=== PATIENT | male | born 1955 | race Two or more races ===

== ENCOUNTER 2019-10-09 17:54 | Inpatient (IN) | payer MEDICAID, MEDICARE ==
[~2019-10-09] VITALS: Ht 175.3 cm; Wt 36.3 kg
--- NOTE | 2019-10-09 17:55 | NUR ---
ED Nurse Note: pt was brought in by ambulance from [facility] d/t abdominal pain & nausea started an hour ago. Denies any vomiting nor chills. Pt is AOx4, calm and cooperative. Denies any past medical hx aside from paralysis on both lower extremities; arrived with a supraprapubic catheter that was changed a month ago. Placed on bed; hooked to hospital monitor; VSS, on RA, afebrile on triage. Safety assured; will continue to monitor.
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
[2019-10-09] MEDS ORDERED: Morphine Sulfate 4mg/ml Inj (IV USE ONLY) IVP ONE (18:00)
[2019-10-09 18:10] VITALS: BP 134/77
--- NOTE | 2019-10-09 18:15 | NUR ---
ED Nurse Note: pt went on ct via [facility] accompanied by tech
--- NOTE | 2019-10-09 18:22 | NUR ---
ED Nurse Note: pt returned from ct on stable condition. Offered warm blankets as requested; will continue to monitor.
[2019-10-09] MEDS ORDERED: Morphine Sulfate 4mg/ml Inj (IV USE ONLY) ONE (18:24)
[2019-10-09 18:31] LABS: BASOPHILS % (AUTO) 0.6 % (0.0-2.0); EOSINOPHILS % (AUTO) 1.9 % (0.0-3.0); HEMATOCRIT 45.3 % (42.0-52.0); HEMOGLOBIN 14.7 G/DL (14.2-18.0); LYMPHOCYTES % (AUTO) 11.8 % (20.0-45.0); MEAN CORPUSCULAR VOLUME 88 FL (80-99); MONOCYTES % (AUTO) 5.8 % (1.0-10.0); NEUTROPHILS % (AUTO) 79.9 % (45.0-75.0); PLATELET COUNT 343 K/UL (150-450); RED BLOOD COUNT 5.17 M/UL (4.70-6.10); RED CELL DISTRIBUTION WIDTH 13.7 % (11.6-14.8); WHITE BLOOD COUNT 13.8 K/UL (4.8-10.8)
[2019-10-09 18:33] LABS: ANION GAP 10 mmol/L (5-15); BLOOD UREA NITROGEN 21 mg/dL (7-18); CALCIUM 9.6 MG/DL (8.5-10.1); CARBON DIOXIDE 27 MMOL/L (21-32); CHLORIDE 105 MMOL/L (98-107); CREATININE 0.7 MG/DL (0.55-1.30); POTASSIUM 3.6 MMOL/L (3.5-5.1); SODIUM 142 MMOL/L (136-145)
[2019-10-09 18:37] LABS: ALANINE AMINOTRANSFERASE 18 U/L (12-78); ALBUMIN 3.9 G/DL (3.4-5.0); ALBUMIN/GLOBULIN RATIO 0.9 (1.0-2.7); ALKALINE PHOSPHATASE 122 U/L (46-116); ASPARTATE AMINO TRANSFERASE 17 U/L (15-37); BILIRUBIN,TOTAL 0.5 MG/DL (0.2-1.0)
--- NOTE | 2019-10-09 18:50 | NUR ---
ED Nurse Note: urine collected; sent to labs. Pt's VSS, on RA. Denies any pain nor discomfort as of now.
[2019-10-09 19:06] LABS: APPEARANCE,URINE VERY CLOUDY; BILIRUBIN, URINE NEGATIVE (NEGATIVE); GLUCOSE, URINE (UA) NEGATIVE (NEGATIVE); KETONES,URINE 1+ (NEGATIVE); LEUKOCYTE ESTERASE ,URINE 3+ (NEGATIVE); NITRITE,URINE POSITIVE (NEGATIVE); PH,URINE 5 (4.5-8.0); PROTEIN,URINE 2+ (NEGATIVE); UROBILINOGEN,URINE 1 MG/DL (0.0-1.0)
--- NOTE | 2019-10-09 19:06 | NUR ---
ED Nurse Note: Hand-off given to ROSALBA Cobian for continuity of care.
[2019-10-09 19:26] LABS: COLOR,URINE YELLOW
[2019-10-09] MEDS ORDERED: Piperacillin/Tazobactam 3.375 GM in NS 110 ML IVPB ONE (19:45)
[2019-10-09 21:00] VITALS: BP 124/70
--- NOTE | 2019-10-09 21:00 | NUR ---
ED Nurse Note: Pt resting in bed with eyes closed,easily awakened, IV antibiotics infusing per order, awaiting bed upstairs, will continue to monitor. Pt denies pain at this time
--- NOTE | 2019-10-09 22:10 | NUR ---
TRANSFER TO FLOOR: Patient transferred to as ordered, per Dr Patino. Report given to ROSALBA Patel. Belongings and medications given to . Family and or S/O informed of transfer.
--- NOTE | 2019-10-09 22:30 | NUR ---
NURSE NOTES: Received report from ROSALBA Cobian ED. Pt arrived to the unit @ 2220. AAO x 4, on room air, paraplegia. Admitted with supra pubic cath. Pt c/o abd pain 09/10 and received morphine from ED. Admitted wound on R buttock, R foot and L great toe. Wound pic taken. IV site intact. Pt has own wheelchair. All belongings reviewed. Orientation to the unit and facility given. No home meds noted. Swabs done from ED. Bed locked, lowest position, alarm on, side rails up, call light within reach. Will continue to monitor.
--- NOTE | 2019-10-09 22:30 | NUR ---
NURSE NOTES: Received admission order from Dr. Patino. Regular diet per pt request. Order noted and carried out.
[2019-10-10] VITALS: BP 91/48
[2019-10-10] MEDS: Morphine Sulfate 2mg/ml Inj(IV/IM USE ONLY) IVP PRN (00:42)
[2019-10-10 04:00] VITALS: BP 112/52
[2019-10-10 06:22] LABS: BASOPHILS % (AUTO) 0.5 % (0.0-2.0); EOSINOPHILS % (AUTO) 2.3 % (0.0-3.0); HEMOGLOBIN 12.9 G/DL (14.2-18.0); LYMPHOCYTES % (AUTO) 12.8 % (20.0-45.0); MEAN CORPUSCULAR VOLUME 84 FL (80-99); MONOCYTES % (AUTO) 7.7 % (1.0-10.0); NEUTROPHILS % (AUTO) 76.8 % (45.0-75.0); PLATELET COUNT 265 K/UL (150-450); RED CELL DISTRIBUTION WIDTH 12.3 % (11.6-14.8)
[2019-10-10 06:42] LABS: ALANINE AMINOTRANSFERASE 14 U/L (12-78); ALBUMIN/GLOBULIN RATIO 0.9 (1.0-2.7); ALKALINE PHOSPHATASE 92 U/L (46-116); ANION GAP 9 mmol/L (5-15); ASPARTATE AMINO TRANSFERASE 13 U/L (15-37); BILIRUBIN,TOTAL 0.3 MG/DL (0.2-1.0); BLOOD UREA NITROGEN 18 mg/dL (7-18); CALCIUM 8.6 MG/DL (8.5-10.1); CARBON DIOXIDE 26 MMOL/L (21-32); CHLORIDE 109 MMOL/L (98-107); CREATININE 0.7 MG/DL (0.55-1.30); POTASSIUM 3.6 MMOL/L (3.5-5.1); SODIUM 144 MMOL/L (136-145)
--- NOTE | 2019-10-10 07:41 | NUR ---
HAND-OFF: Report given to ROSALBA Gupta.
[2019-10-10 08:00] VITALS: BP 109/57
--- NOTE | 2019-10-10 08:00 | NUR ---
NURSE NOTES: Patient alert and oriented,respirations unlabored.Patient has suprapubic catheter draining clear mo color urine.Patient ate breakfast.Call light within reach.Bed alarm is on.
--- NOTE | 2019-10-10 10:28 | Diagnostic Imaging Report ---
Indication: Abdominal pain, right-sided upper and lower quadrant, 10 out of 10 intensity, for approximately one hour Technique: Spiral acquisitions obtained through the abdomen and pelvis. No oral contrast utilized, per emergency room physician request No IV contrast utilized, per emergency room physician request.. Multiplanar reconstructions were generated. Total dose length product 337 mGycm. CTDIvol(s) 6 mGy. Dose reduction achieved using automated exposure control Comparison: None Findings: The appendix is not definitely demonstrated, but no findings to suggest acute appendicitis are evident. There is no evidence of colonic diverticulosis or diverticulitis. No small bowel distention. No free or loculated intraperitoneal gas or fluid is evident. The distal esophagus, stomach, duodenum are unremarkable. There is a equivocal wall thickening of the distal rectum. Lack of IV contrast limits assessment of the solid organs. The liver demonstrates a cyst in the dome of segment 8. It demonstrates other scattered subcentimeter low-attenuation lesions which are too small to characterize the gallbladder, bile ducts, pancreas, spleen, adrenals, kidneys are all unremarkable. No retroperitoneal or mesenteric mass or adenopathy. There are prominent iliac chain nodes, largest a left external iliac node measuring 2.4 x 1.2 cm in diameter. The bladder is empty, contains a suprapubic catheter which appears to be well positioned. There is thickening of the retrococcygeal fat and evidence of some chronic appearing destructive changes of the coccyx. No evidence of ulceration. There is infiltration of the subcutaneous fat of the bilateral buttocks. Degenerative changes of the bilateral hips are noted. Dystrophic calcifications are seen in the left hip region. There is a complex calcified density in the right upper buttock region subcutaneous fat. There is chronic appearing distortion of the sacrum and there is thoracolumbar smooth dextro scoliotic deformity, may in part be an artifact of positioning. The included lung bases demonstrate a slight degree of mosaic perfusion at the left lung base. There is some atelectasis of the inferior lingula. Impression: Equivocal wall thickening of the distal rectum, if real could indicate proctitis or less likely mass lesion. Correlate with clinical findings. Pelvic adenopathy, could be reactive or neoplastic. This finding was phoned to Dr. Bond at the time of interpretation Empty bladder with a suprapubic catheter in good position Evidence of retrococcygeal decubitus changes and chronic erosive changes of the coccyx. No evidence of ulceration Right lobe liver cyst and subcentimeter low-attenuation liver lesions which are too small to characterize, most likely benign simple cysts Complex calcified density in the right upper buttock region is probably a large injection granuloma Degenerative changes of the bilateral hips, left hip dystrophic calcifications, left basilar pulmonary atelectatic changes are also incidentally noted The CT scanner at [facility] is accredited by the [employer] and the scans are performed using protocols designed to limit radiation exposure to as low as reasonably achievable to attain images of sufficient resolution adequate for diagnostic evaluation.
--- NOTE | 2019-10-10 10:36 | NUR ---
LINUX NETWORK ADMINISTRATOR NOTE SW received a consult for homelessness. Pt presents as A&O4x. Pt is homeless, receives no income, has hx of SSI and has no emergency contact. Pt is single and has no children. Pt reports he is homeless but he has a friend who has been staying w/ him on the streets. Pt declined to provide his preferred location/whereabouts/friend's contact information. Pt uses a wheelchair. Pt reports he is independent w/ ADLs. SW provided the list of emergency shelters and community resource packet. Pt declined a placement assistance and also declined to state the specific location that he will be going upon DC. Pt stated "I know where I am going." Pt denies SI/HI/current substance abuse. Pt reports he will consider the emergency senior living option but pt wishes to go his preferred location upon DC. SW explained negative ramification of unlicensed facilities/shelters. Pt verbalized understanding. Addendum: 10/10/19 at 1104 by PINA NESBITT SW received a phone call from [place] stating that she will check on the status of the case and will give an update. Awaiting for call back. Addendum: 10/10/19 at 1105 by PINA NESBITT Please disregard the previous note ([id number])
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
[2019-10-10 12:00] VITALS: BP 129/75
--- NOTE | 2019-10-10 12:10 | Diagnostic Imaging Report ---
Indication: Leg edema and leg pain Technique: Grayscale and duplex images of the bilateral lower extremity veins Comparison: None Findings: Bilaterally, grayscale and duplex images demonstrate no evidence of intraluminal thrombus. Normal phasic Doppler waveforms, demonstrating normal augmentation response and no evidence of valvular insufficiency. Greater saphenous vein(s) and tibial veins are patent. Normal compressibility. Impression: Negative for evidence of lower extremity deep venous thrombosis bilaterally
[2019-10-10] MEDS: Docusate 100mg cap ORAL SCH ×2 (13:10→19:23)
--- NOTE | 2019-10-10 13:20 | NUR ---
CASE MANAGEMENT:REVIEW 64 YR OLD MALE [facility]IBA FROM [facility];ABDOMINAL PAIN SI;CATHETER ASSOCIATED UTI 98.4 88 22 137 97% ON RA WBC 13.8 BUN 21 ALK PHOS 122 UA+ PROTEIN, KETONES, BLOOD, UROBILI, LUEKOCYTE, RBC, WBC, AMORPHOUS SEDIMENT, BACTERIA, YEAST ABD/PELVIS CT W/O CONTRAST ~ Pelvic adenopathy, could be reactive or neoplastic. This finding was phoned to at the time of interpretation. VENOUS DUPLEX (BILAT LEG) ~ Negative for evidence of lower extremity deep venous thrombosis bilaterally. IS;ZOFRAN IV ONCE FAMOTIDINE IV ONCE MORPHINE IV ONCE ZOSYN IN ONCE ADMITTED TO MED SURG ON 10/10/19 @ 0853 AM MED SURG STATUS DCP;PATIENT IS HOMELESS
[2019-10-10] MEDS: D5NS 1,000 ML IV SCH (13:23)
[2019-10-10] MEDS: Piperacillin/Tazobactam 3.375 GM in NS 110 ML IVPB SCH ×2 (15:24→23:12)
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
[2019-10-10 16:00] VITALS: BP 116/64
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
--- NOTE | 2019-10-10 19:00 | NUR ---
NURSE NOTES: Supra pubic catheter was changed today BY DR Olsen,catheter draining clearer color yellow urine
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
--- NOTE | 2019-10-10 20:16 | NUR ---
NURSE NOTES:HAND-OFF: Report given to Tesha NAVARRETE.
--- NOTE | 2019-10-10 20:39 | NUR ---
NURSES NOTE: Met pt in bed, A/OX4, denies pain at this time. No outward s/s of distress noted. Breathing pattern is even and unlabored on RA. RAC IV intact, patent. Red catheter in place, patent, draining according to gravity. All due meds will be given. Bed at lowest level, call light within reach. Pt will continue to be monitored.
--- NOTE | 2019-10-10 22:11 | General Progress Note ---
Subjective Allergies: Coded Allergies: IODINE AND IODIDE CONTAINING PRODUC (Unverified Allergy, Unknown, 10/09/19) SHELLFISH DERIVED (Unverified Allergy, Unknown, 10/09/19) Objective Last 24 Hour Vital Signs Date Time Temp Pulse Resp B/P (MAP) Pulse Ox O2 Delivery O2 Flow Rate FiO2 10/10/19 16:00 98.5 71 18 116/64 (81) 95 10/10/19 12:00 129/75 (93) 10/10/19 08:00 97.7 66 18 109/57 (74) 97 10/10/19 04:00 98.3 65 20 112/52 (72) 98 10/10/19 00:00 97.4 64 20 91/48 (62) 98 10/09/19 23:57 Room Air Intake and Output 10/09/19 10/10/19 19:00 07:00 # Voids 2 Laboratory Tests 10/10/19 05:30: White Blood Count 10.0, Red Blood Count 4.40L, Hemoglobin 12.9L, Hematocrit 37.0L, Mean Corpuscular Volume 84, Mean Corpuscular Hemoglobin 29.3, Mean Corpuscular Hemoglobin Concent 34.7, Red Cell Distribution Width 12.3, Platelet Count 265, Mean Platelet Volume 6.1L, Neutrophils (%) (Auto) 76.8H, Lymphocytes (%) (Auto) 12.8L, Monocytes (%) (Auto) 7.7, Eosinophils (%) (Auto) 2.3, Basophils (%) (Auto) 0.5, Sodium Level 144, Potassium Level 3.6, Chloride Level 109H, Carbon Dioxide Level 26, Anion Gap 9, Blood Urea Nitrogen 18, Creatinine 0.7, Estimat Glomerular Filtration Rate > 60, Glucose Level 130H, Calcium Level 8.6, Total Bilirubin 0.3, Aspartate Amino Transf (AST/SGOT) 13L, Alanine Aminotransferase (ALT/SGPT) 14, Alkaline Phosphatase 92, Total Protein 6.5, Albumin 3.0L, Globulin 3.5, Albumin/Globulin Ratio 0.9L 10/10/19 16:00: Urine Opiates Screen Negative, Urine Barbiturates Screen Negative, Phencyclidine (PCP) Screen Negative, Urine Amphetamines Screen Negative, Urine Benzodiazepines Screen Negative, Urine Cocaine Screen Negative, Urine Marijuana (THC) Screen Negative Height (Feet): 5 Height (Inches): 9.00 Weight (Pounds): 80 Jarett Bond MD Oct 10, 2019 22:11
[2019-10-11] VITALS: BP 109/60
[2019-10-11] MEDS: D5NS 1,000 ML IV SCH ×2 (01:20→18:21)
[2019-10-11 04:00] VITALS: BP 131/66
[2019-10-11] MEDS: Piperacillin/Tazobactam 3.375 GM in NS 110 ML IVPB SCH ×3 (05:53→21:08)
[2019-10-11 06:55] LABS: BASOPHILS % (AUTO) 0.7 % (0.0-2.0); EOSINOPHILS % (AUTO) 3.7 % (0.0-3.0); HEMATOCRIT 38.5 % (42.0-52.0); HEMOGLOBIN 13.1 G/DL (14.2-18.0); LYMPHOCYTES % (AUTO) 20.6 % (20.0-45.0); MEAN CORPUSCULAR VOLUME 84 FL (80-99); MONOCYTES % (AUTO) 8.5 % (1.0-10.0); NEUTROPHILS % (AUTO) 66.4 % (45.0-75.0); PLATELET COUNT 260 K/UL (150-450); RED BLOOD COUNT 4.56 M/UL (4.70-6.10); RED CELL DISTRIBUTION WIDTH 12.3 % (11.6-14.8)
[2019-10-11 07:43] LABS: ALANINE AMINOTRANSFERASE 13 U/L (12-78); ALBUMIN 2.9 G/DL (3.4-5.0); ALBUMIN/GLOBULIN RATIO 0.8 (1.0-2.7); ALKALINE PHOSPHATASE 88 U/L (46-116); ANION GAP 11 mmol/L (5-15); ASPARTATE AMINO TRANSFERASE 12 U/L (15-37); BILIRUBIN,TOTAL 0.4 MG/DL (0.2-1.0); BLOOD UREA NITROGEN 16 mg/dL (7-18); CALCIUM 8.3 MG/DL (8.5-10.1); CARBON DIOXIDE 25 MMOL/L (21-32); CHLORIDE 106 MMOL/L (98-107); CREATININE 0.6 MG/DL (0.55-1.30); FERRITIN 25 NG/ML (8-388); GAMMA GLUTAMYL TRANSPEPTIDASE 20 U/L (5-85); PHOSPHORUS 3.2 MG/DL (2.5-4.9); POTASSIUM 3.4 MMOL/L (3.5-5.1); SODIUM 142 MMOL/L (136-145)
--- NOTE | 2019-10-11 07:52 | NUR ---
HAND OFF: Report given to ROSALBA Coleman. Patient in stable condition.
--- NOTE | 2019-10-11 08:04 | NUR ---
NURSE NOTES: Patient is awake and alert and oriented,respirations unlabored.IV fluids infusing as ordered.Supra pubic catheter is in place mo color urine noted mostly clear with some sediments noted in collection tube.Patient on antibiotics,will monitor.No complaints at this time.Bed alalrm on,patient is wheelchair bound.Call light within reach.
[2019-10-11 08:13] VITALS: BP 118/60
[2019-10-11] MEDS: Docusate 100mg cap ORAL SCH ×3 (08:28→18:18)
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
[2019-10-11 12:00] VITALS: BP 125/62
--- NOTE | 2019-10-11 12:37 | Infectious Diseases Prog Note ---
Assessment/Plan Assessment/Plan IMPRESSION: Cystitis, UTI s/p Suprapubic catheter, paraplegia, pressure ulcers. RECOMMENDATION: Continue with Zosyn. We will follow up the cultures. Subjective ROS Limited/Unobtainable: No Constitutional: Reports: no symptoms Respiratory: Reports: no symptoms Cardiovascular: Reports: no symptoms Gastrointestinal/Abdominal: Reports: no symptoms Genitourinary: Reports: no symptoms, other - suprapubic catheter Allergies: Coded Allergies: IODINE AND IODIDE CONTAINING PRODUC (Unverified Allergy, Unknown, 10/09/19) SHELLFISH DERIVED (Unverified Allergy, Unknown, 10/09/19) Objective Vital Signs Last 24 Hour Vital Signs Date Time Temp Pulse Resp B/P (MAP) Pulse Ox O2 Delivery O2 Flow Rate FiO2 10/11/19 09:00 Room Air 10/11/19 08:13 98.2 62 18 118/60 (79) 98 10/11/19 04:00 98.0 81 18 131/66 (87) 96 81 10/11/19 00:00 97.7 95 18 109/60 (76) 96 95 10/10/19 21:00 Room Air 10/10/19 16:00 98.5 71 18 116/64 (81) 95 Height (Feet): 5 Height (Inches): 9.00 Weight (Pounds): 80 General Appearance: no acute distress HEENT: mucous membranes moist Respiratory/Chest: lungs clear Cardiovascular: normal rate Abdomen: soft, non tender Genitourinary: other - suprapubic catheter Extremities: no edema Skin: ulcers Neurologic/Psychiatric: alert, oriented x 3, responsive, other - paraplegia Microbiology Date/Time Source Procedure Growth Status 10/09/19 18:50 Urine,Clean Catch Urine Culture - Preliminary Resulted Laboratory Tests Test 10/10/19 16:00 10/11/19 04:45 10/11/19 05:30 Urine Opiates Screen Negative (NEGATIVE) Urine Barbiturates Screen Negative (NEGATIVE) Phencyclidine (PCP) Screen Negative (NEGATIVE) Urine Amphetamines Screen Negative (NEGATIVE) Urine Benzodiazepines Screen Negative (NEGATIVE) Urine Cocaine Screen Negative (NEGATIVE) Urine Marijuana (THC) Screen Negative (NEGATIVE) White Blood Count 11.0 K/UL (4.8-10.8) H Red Blood Count 4.56 M/UL (4.70-6.10) L Hemoglobin 13.1 G/DL (14.2-18.0) L Hematocrit 38.5 % (42.0-52.0) L Mean Corpuscular Volume 84 FL (80-99) Mean Corpuscular Hemoglobin 28.8 PG (27.0-31.0) Mean Corpuscular Hemoglobin Concent 34.1 G/DL (32.0-36.0) Red Cell Distribution Width 12.3 % (11.6-14.8) Platelet Count 260 K/UL (150-450) Mean Platelet Volume 5.9 FL (6.5-10.1) L Neutrophils (%) (Auto) 66.4 % (45.0-75.0) Lymphocytes (%) (Auto) 20.6 % (20.0-45.0) Monocytes (%) (Auto) 8.5 % (1.0-10.0) Eosinophils (%) (Auto) 3.7 % (0.0-3.0) H Basophils (%) (Auto) 0.7 % (0.0-2.0) Sodium Level 142 MMOL/L (136-145) Potassium Level 3.4 MMOL/L (3.5-5.1) L Chloride Level 106 MMOL/L (98-107) Carbon Dioxide Level 25 MMOL/L (21-32) Anion Gap 11 mmol/L (5-15) Blood Urea Nitrogen 16 mg/dL (7-18) Creatinine 0.6 MG/DL (0.55-1.30) Estimat Glomerular Filtration Rate > 60 mL/min (>60) Glucose Level 114 MG/DL (74-106) H Uric Acid 4.7 MG/DL (2.6-7.2) Calcium Level 8.3 MG/DL (8.5-10.1) L Phosphorus Level 3.2 MG/DL (2.5-4.9) Magnesium Level 2.2 MG/DL (1.8-2.4) Ferritin 25 NG/ML (8-388) Total Bilirubin 0.4 MG/DL (0.2-1.0) Gamma Glutamyl Transpeptidase 20 U/L (5-85) Aspartate Amino Transf (AST/SGOT) 12 U/L (15-37) L Alanine Aminotransferase (ALT/SGPT) 13 U/L (12-78) Alkaline Phosphatase 88 U/L (46-116) C-Reactive Protein, Quantitative 0.8 mg/dL (0.00-0.90) Pro-B-Type Natriuretic Peptide 89 pg/mL (0-125) Total Protein 6.5 G/DL (6.4-8.2) Albumin 2.9 G/DL (3.4-5.0) L Globulin 3.6 g/dL Albumin/Globulin Ratio 0.8 (1.0-2.7) L Carcinoembryonic Antigen Pending Current Medications Medications (Trade) Dose Ordered Sig/Jonathan Route PRN Reason Start Time Stop Time Status Last Admin Dose Admin Acetaminophen (Tylenol) 650 mg Q4H PRN ORAL MILD PAIN AND FEVER 10/09/19 23:00 11/08/19 22:59 Dextrose/Sodium Chloride 1,000 ml @ 75 mls/hr [id number] IV 10/10/19 12:00 11/09/19 11:59 10/10/19 13:23 Docusate Sodium (Colace) 100 mg THREE TIMES A DAY ORAL 10/10/19 13:00 11/09/19 12:59 10/11/19 08:28 Morphine Sulfate (Morphine Sulfate) 2 mg EVERY 6 HOURS PRN IVP Severe Pain (Pain Scale 7-10) 10/09/19 23:00 10/16/19 22:59 10/10/19 00:42 Ondansetron HCl (Zofran) 4 mg Q6H PRN IVP Nausea & Vomiting 10/09/19 23:00 11/08/19 22:59 Pantoprazole (Protonix) 40 mg EVERY 12 HOURS ORAL 10/10/19 12:00 11/09/19 11:59 10/11/19 08:28 Piperacillin Sod/ Tazobactam Sod 3.375 gm/Sodium Chloride 110 ml @ 27.5 mls/hr EVERY 8 HOURS IVPB 10/10/19 14:00 10/15/19 13:59 10/11/19 05:53 Potassium Chloride (K-Dur) 40 meq DAILY ORAL 10/11/19 12:00 01/09/20 11:59 Gigi Kim MD Oct 11, 2019 12:37
--- NOTE | 2019-10-11 13:32 | Nephrology Progress Note ---
Assessment/Plan Problem List: (1) Electrolyte imbalance (2) Catheter-associated urinary tract infection (3) Dehydration Assessment UTI Suprapubic catheter Quadriplegia Dehydration Plan Potassium supplement Monitor electrolytes hydrate Antibiotics Per orders Subjective ROS Limited/Unobtainable: No Constitutional: Reports: malaise Objective Objective Last 24 Hour Vital Signs Date Time Temp Pulse Resp B/P (MAP) Pulse Ox O2 Delivery O2 Flow Rate FiO2 10/11/19 09:00 Room Air 10/11/19 08:13 98.2 62 18 118/60 (79) 98 10/11/19 04:00 98.0 81 18 131/66 (87) 96 81 10/11/19 00:00 97.7 95 18 109/60 (76) 96 95 10/10/19 21:00 Room Air 10/10/19 16:00 98.5 71 18 116/64 (81) 95 Intake and Output 10/10/19 10/11/19 19:00 07:00 Intake Total 555 ml 480 ml Output Total 650 ml 1000 ml Balance -95 ml -520 ml Intake Oral 480 ml 480 ml IV Total 75 ml Output Urine Total 650 ml 1000 ml # Voids 1 Laboratory Tests 10/10/19 16:00: Urine Opiates Screen Negative, Urine Barbiturates Screen Negative, Phencyclidine (PCP) Screen Negative, Urine Amphetamines Screen Negative, Urine Benzodiazepines Screen Negative, Urine Cocaine Screen Negative, Urine Marijuana (THC) Screen Negative 10/11/19 04:45: White Blood Count 11.0H, Red Blood Count 4.56L, Hemoglobin 13.1L, Hematocrit 38.5L, Mean Corpuscular Volume 84, Mean Corpuscular Hemoglobin 28.8, Mean Corpuscular Hemoglobin Concent 34.1, Red Cell Distribution Width 12.3, Platelet Count 260, Mean Platelet Volume 5.9L, Neutrophils (%) (Auto) 66.4, Lymphocytes ( %) (Auto) 20.6, Monocytes (%) (Auto) 8.5, Eosinophils (%) (Auto) 3.7H, Basophils (%) (Auto) 0.7, Sodium Level 142, Potassium Level 3.4L, Chloride Level 106, Carbon Dioxide Level 25, Anion Gap 11, Blood Urea Nitrogen 16, Creatinine 0.6, Estimat Glomerular Filtration Rate > 60, Glucose Level 114H, Uric Acid 4.7, Calcium Level 8.3L, Phosphorus Level 3.2, Magnesium Level 2.2, Ferritin 25, Total Bilirubin 0.4, Gamma Glutamyl Transpeptidase 20, Aspartate Amino Transf (AST/SGOT) 12L, Alanine Aminotransferase (ALT/SGPT) 13, Alkaline Phosphatase 88, C-Reactive Protein, Quantitative 0.8, Pro-B-Type Natriuretic Peptide 89, Total Protein 6.5, Albumin 2.9L, Globulin 3.6, Albumin/Globulin Ratio 0.8L 10/11/19 05:30: Carcinoembryonic Antigen [Pending] Height (Feet): 5 Height (Inches): 9.00 Weight (Pounds): 80 General Appearance: no apparent distress Objective No change Abdulaziz Carrasco MD Oct 11, 2019 13:32
--- NOTE | 2019-10-11 13:52 | NUR ---
CASE MANAGEMENT:REVIEW SI;CYSTITIS. CATH ASSOCIATED UTI (SUPRAPUBIC). PARAPLEGIA. 98.5 95 18 109/60 95% ON RA WBC 11.0 K+ 3.4 CA 8.3 AST 12 IS;ZOSYN IV Q8 HRS K-DUR PO QD PROTONIX PO BID MED SURG STATUS DCP;FROM HOME PLAN;CONTINUE ZOSYN K SUPPLEMENT MONITOR ELECTROLYTES
--- NOTE | 2019-10-11 14:43 | Surgery Progress Note ---
Surgery Progress Note Subjective Symptoms: improved, passing flatus Additional Comments states he feels better pain improved no n/v/f/c Objective Last 24 Hour Vital Signs Date Time Temp Pulse Resp B/P (MAP) Pulse Ox O2 Delivery O2 Flow Rate FiO2 10/11/19 09:00 Room Air 10/11/19 08:13 98.2 62 18 118/60 (79) 98 10/11/19 04:00 98.0 81 18 131/66 (87) 96 81 10/11/19 00:00 97.7 95 18 109/60 (76) 96 95 10/10/19 21:00 Room Air 10/10/19 16:00 98.5 71 18 116/64 (81) 95 I&O Intake and Output 10/10/19 10/11/19 19:00 07:00 Intake Total 555 ml 480 ml Output Total 650 ml 1000 ml Balance -95 ml -520 ml Intake Oral 480 ml 480 ml IV Total 75 ml Output Urine Total 650 ml 1000 ml # Voids 1 Dressing: saturated Wound: clean Cardiovascular: RSR Respiratory: clear Abdomen: soft, non-tender, present bowel sounds Extremities: no edema, no cyanosis Laboratory Tests Test 10/10/19 16:00 10/11/19 04:45 10/11/19 05:30 Urine Opiates Screen Negative (NEGATIVE) Urine Barbiturates Screen Negative (NEGATIVE) Phencyclidine (PCP) Screen Negative (NEGATIVE) Urine Amphetamines Screen Negative (NEGATIVE) Urine Benzodiazepines Screen Negative (NEGATIVE) Urine Cocaine Screen Negative (NEGATIVE) Urine Marijuana (THC) Screen Negative (NEGATIVE) White Blood Count 11.0 K/UL (4.8-10.8) H Red Blood Count 4.56 M/UL (4.70-6.10) L Hemoglobin 13.1 G/DL (14.2-18.0) L Hematocrit 38.5 % (42.0-52.0) L Mean Corpuscular Volume 84 FL (80-99) Mean Corpuscular Hemoglobin 28.8 PG (27.0-31.0) Mean Corpuscular Hemoglobin Concent 34.1 G/DL (32.0-36.0) Red Cell Distribution Width 12.3 % (11.6-14.8) Platelet Count 260 K/UL (150-450) Mean Platelet Volume 5.9 FL (6.5-10.1) L Neutrophils (%) (Auto) 66.4 % (45.0-75.0) Lymphocytes (%) (Auto) 20.6 % (20.0-45.0) Monocytes (%) (Auto) 8.5 % (1.0-10.0) Eosinophils (%) (Auto) 3.7 % (0.0-3.0) H Basophils (%) (Auto) 0.7 % (0.0-2.0) Sodium Level 142 MMOL/L (136-145) Potassium Level 3.4 MMOL/L (3.5-5.1) L Chloride Level 106 MMOL/L (98-107) Carbon Dioxide Level 25 MMOL/L (21-32) Anion Gap 11 mmol/L (5-15) Blood Urea Nitrogen 16 mg/dL (7-18) Creatinine 0.6 MG/DL (0.55-1.30) Estimat Glomerular Filtration Rate > 60 mL/min (>60) Glucose Level 114 MG/DL (74-106) H Uric Acid 4.7 MG/DL (2.6-7.2) Calcium Level 8.3 MG/DL (8.5-10.1) L Phosphorus Level 3.2 MG/DL (2.5-4.9) Magnesium Level 2.2 MG/DL (1.8-2.4) Ferritin 25 NG/ML (8-388) Total Bilirubin 0.4 MG/DL (0.2-1.0) Gamma Glutamyl Transpeptidase 20 U/L (5-85) Aspartate Amino Transf (AST/SGOT) 12 U/L (15-37) L Alanine Aminotransferase (ALT/SGPT) 13 U/L (12-78) Alkaline Phosphatase 88 U/L (46-116) C-Reactive Protein, Quantitative 0.8 mg/dL (0.00-0.90) Pro-B-Type Natriuretic Peptide 89 pg/mL (0-125) Total Protein 6.5 G/DL (6.4-8.2) Albumin 2.9 G/DL (3.4-5.0) L Globulin 3.6 g/dL Albumin/Globulin Ratio 0.8 (1.0-2.7) L Carcinoembryonic Antigen Pending Plan Problems: (1) Constipation (2) Decubitus skin ulcer (3) Abdominal pain Assessment & Plan: feeling better pain cramping abd exam benign wants food okay for diet trend labs abx as per id will follow with serial exams no acute surgical intervention planned The appendix is not definitely demonstrated, but no findings to suggest acute appendicitis are evident. There is no evidence of colonic diverticulosis or diverticulitis. No small bowel distention. No free or loculated intraperitoneal gas or fluid is evident. The distal esophagus, stomach, duodenum are unremarkable. There is a equivocal wall thickening of the distal rectum. Lack of IV contrast limits assessment of the solid organs. The liver demonstrates a cyst in the dome of segment 8. It demonstrates other scattered subcentimeter low-attenuation lesions which are too small to characterize the gallbladder, bile ducts, pancreas, spleen, adrenals, kidneys are all unremarkable. No retroperitoneal or mesenteric mass or adenopathy. There are prominent iliac chain nodes, largest a left external iliac node measuring 2.4 x 1.2 cm in diameter. The bladder is empty, contains a suprapubic catheter which appears to be well positioned. There is thickening of the retrococcygeal fat and evidence of some chronic appearing destructive changes of the coccyx. No evidence of ulceration. There is infiltration of the subcutaneous fat of the bilateral buttocks. Degenerative changes of the bilateral hips are noted. Dystrophic calcifications are seen in the left hip region. There is a complex calcified density in the right upper buttock region subcutaneous fat. There is chronic appearing distortion of the sacrum and there is thoracolumbar smooth dextro scoliotic deformity, may in part be an artifact of positioning. The included lung bases demonstrate a slight degree of mosaic perfusion at the left lung base. There is some atelectasis of the inferior lingula. Impression: Equivocal wall thickening of the distal rectum, if real could indicate proctitis or less likely mass lesion. Correlate with clinical findings. Pelvic adenopathy, could be reactive or neoplastic. This finding was phoned to Dr. Bond at the time of interpretation Empty bladder with a suprapubic catheter in good position Evidence of retrococcygeal decubitus changes and chronic erosive changes of the coccyx. No evidence of ulceration Right lobe liver cyst and subcentimeter low-attenuation liver lesions which are too small to characterize, most likely benign simple cysts Complex calcified density in the right upper buttock region is probably a large injection granuloma (4) Catheter-associated urinary tract infection Mohinder Deras Oct 11, 2019 14:43
[2019-10-11] MEDS: Morphine Sulfate 2mg/ml Inj(IV/IM USE ONLY) IVP PRN ×2 (14:51→21:12)
--- NOTE | 2019-10-11 18:30 | NUR ---
NURSE NOTES:Patient resting,No complaint of pain at this time.Bed ALARM ON.
--- NOTE | 2019-10-11 19:35 | NUR ---
NURSE NOTES:RN aware of fall risk.
--- NOTE | 2019-10-11 19:35 | NUR ---
HAND-OFF: Report given to Amanda NAVARRETE
[2019-10-11 20:00] VITALS: BP 118/68
--- NOTE | 2019-10-11 20:00 | NUR ---
NURSE NOTES: Received report from ROSALBA Gupta. AAO x 4, on room air, paraplegia. Supra pubic cath intact. IV site intact. Pt has own wheelchair. Bed locked, lowest position, alarm on, side rails up, call light within reach. Will continue to monitor.
--- NOTE | 2019-10-11 21:46 | General Progress Note ---
Assessment/Plan Problem List: (1) Constipation ICD Codes: K59.00 - Constipation, unspecified SNOMED: 93133619 (2) Catheter-associated urinary tract infection ICD Codes: T83.511A - Infection and inflammatory reaction due to indwelling urethral catheter, initial encounter; N39.0 - Urinary tract infection, site not specified SNOMED: 028960961 (3) Dehydration ICD Codes: E86.0 - Dehydration SNOMED: 50708944 Status: progressing Assessment/Plan: afebrile abx per id uti catheter associated reviewed chart and labs Subjective ROS Limited/Unobtainable: Yes Allergies: Coded Allergies: IODINE AND IODIDE CONTAINING PRODUC (Unverified Allergy, Unknown, 10/09/19) SHELLFISH DERIVED (Unverified Allergy, Unknown, 10/09/19) Objective Last 24 Hour Vital Signs Date Time Temp Pulse Resp B/P (MAP) Pulse Ox O2 Delivery O2 Flow Rate FiO2 10/11/19 20:45 Room Air 10/11/19 20:00 98.4 59 18 118/68 (85) 95 10/11/19 12:00 98.5 68 18 125/62 (83) 98 10/11/19 09:00 Room Air 10/11/19 08:13 98.2 62 18 118/60 (79) 98 10/11/19 04:00 98.0 81 18 131/66 (87) 96 81 10/11/19 00:00 97.7 95 18 109/60 (76) 96 95 Intake and Output 10/10/19 10/11/19 19:00 07:00 Intake Total 555 ml 480 ml Output Total 650 ml 1000 ml Balance -95 ml -520 ml Intake Oral 480 ml 480 ml IV Total 75 ml Output Urine Total 650 ml 1000 ml # Voids 1 Laboratory Tests 10/11/19 04:45: White Blood Count 11.0H, Red Blood Count 4.56L, Hemoglobin 13.1L, Hematocrit 38.5L, Mean Corpuscular Volume 84, Mean Corpuscular Hemoglobin 28.8, Mean Corpuscular Hemoglobin Concent 34.1, Red Cell Distribution Width 12.3, Platelet Count 260, Mean Platelet Volume 5.9L, Neutrophils (%) (Auto) 66.4, Lymphocytes ( %) (Auto) 20.6, Monocytes (%) (Auto) 8.5, Eosinophils (%) (Auto) 3.7H, Basophils (%) (Auto) 0.7, Sodium Level 142, Potassium Level 3.4L, Chloride Level 106, Carbon Dioxide Level 25, Anion Gap 11, Blood Urea Nitrogen 16, Creatinine 0.6, Estimat Glomerular Filtration Rate > 60, Glucose Level 114H, Uric Acid 4.7, Calcium Level 8.3L, Phosphorus Level 3.2, Magnesium Level 2.2, Ferritin 25, Total Bilirubin 0.4, Gamma Glutamyl Transpeptidase 20, Aspartate Amino Transf (AST/SGOT) 12L, Alanine Aminotransferase (ALT/SGPT) 13, Alkaline Phosphatase 88, C-Reactive Protein, Quantitative 0.8, Pro-B-Type Natriuretic Peptide 89, Total Protein 6.5, Albumin 2.9L, Globulin 3.6, Albumin/Globulin Ratio 0.8L 10/11/19 05:30: Carcinoembryonic Antigen [Pending] Jeffery Patino MD Oct 11, 2019 21:45
--- NOTE | 2019-10-11 21:46 | General Progress Note ---
Assessment/Plan Assessment/Plan: Assessment - Abd pain, resolved - UTI - S/p sp catheter - quadroplegia Recommendations - push po - abx - no plans for GI w/u - will see PRN Subjective Allergies: Coded Allergies: IODINE AND IODIDE CONTAINING PRODUC (Unverified Allergy, Unknown, 10/09/19) SHELLFISH DERIVED (Unverified Allergy, Unknown, 10/09/19) Subjective Feels Well no abd pain tolerating PO Objective Last 24 Hour Vital Signs Date Time Temp Pulse Resp B/P (MAP) Pulse Ox O2 Delivery O2 Flow Rate FiO2 10/11/19 20:45 Room Air 10/11/19 20:00 98.4 59 18 118/68 (85) 95 10/11/19 12:00 98.5 68 18 125/62 (83) 98 10/11/19 09:00 Room Air 10/11/19 08:13 98.2 62 18 118/60 (79) 98 10/11/19 04:00 98.0 81 18 131/66 (87) 96 81 10/11/19 00:00 97.7 95 18 109/60 (76) 96 95 Intake and Output 10/10/19 10/11/19 19:00 07:00 Intake Total 555 ml 480 ml Output Total 650 ml 1000 ml Balance -95 ml -520 ml Intake Oral 480 ml 480 ml IV Total 75 ml Output Urine Total 650 ml 1000 ml # Voids 1 Laboratory Tests 10/11/19 04:45: White Blood Count 11.0H, Red Blood Count 4.56L, Hemoglobin 13.1L, Hematocrit 38.5L, Mean Corpuscular Volume 84, Mean Corpuscular Hemoglobin 28.8, Mean Corpuscular Hemoglobin Concent 34.1, Red Cell Distribution Width 12.3, Platelet Count 260, Mean Platelet Volume 5.9L, Neutrophils (%) (Auto) 66.4, Lymphocytes ( %) (Auto) 20.6, Monocytes (%) (Auto) 8.5, Eosinophils (%) (Auto) 3.7H, Basophils (%) (Auto) 0.7, Sodium Level 142, Potassium Level 3.4L, Chloride Level 106, Carbon Dioxide Level 25, Anion Gap 11, Blood Urea Nitrogen 16, Creatinine 0.6, Estimat Glomerular Filtration Rate > 60, Glucose Level 114H, Uric Acid 4.7, Calcium Level 8.3L, Phosphorus Level 3.2, Magnesium Level 2.2, Ferritin 25, Total Bilirubin 0.4, Gamma Glutamyl Transpeptidase 20, Aspartate Amino Transf (AST/SGOT) 12L, Alanine Aminotransferase (ALT/SGPT) 13, Alkaline Phosphatase 88, C-Reactive Protein, Quantitative 0.8, Pro-B-Type Natriuretic Peptide 89, Total Protein 6.5, Albumin 2.9L, Globulin 3.6, Albumin/Globulin Ratio 0.8L 10/11/19 05:30: Carcinoembryonic Antigen [Pending] Height (Feet): 5 Height (Inches): 9.00 Weight (Pounds): 80 Objective WDWN man NCAT supple CTA RR abd soft , (+) SP catherter contracted Jarett Bond MD Oct 11, 2019 21:46
[2019-10-11 23:44] VITALS: BP 135/77
[2019-10-12] MEDS: Morphine Sulfate 2mg/ml Inj(IV/IM USE ONLY) IVP PRN (03:44)
[2019-10-12] MEDS: D5NS 1,000 ML IV SCH ×2 (03:44→18:39)
[2019-10-12 04:00] VITALS: BP 137/70
[2019-10-12] MEDS: Piperacillin/Tazobactam 3.375 GM in NS 110 ML IVPB SCH (05:06)
--- NOTE | 2019-10-12 07:27 | NUR ---
HAND-OFF: Report given to ROSALBA Blanton.
--- NOTE | 2019-10-12 07:47 | NUR ---
NURSE NOTES: Patient seen on rounds, asleep but rousable. Not in distress. No c/o pain. PIV on right AC intact and infusing IVF as ordered. Suprapubic catheter intact and draining well. Bed low and locked, siderails up x2, alarms on zone, call light within reach. Will continue to monitor.
[2019-10-12 08:00] VITALS: BP 128/74
[2019-10-12] MEDS: Docusate 100mg cap ORAL SCH ×3 (09:00→18:00)
--- NOTE | 2019-10-12 09:42 | General Progress Note ---
Assessment/Plan Status: progressing Assessment/Plan: Assessment/Plan Assessment/Plan: Assessment - Abd pain, resolved - UTI - S/p sp catheter - quadroplegia Recommendations - push po - abx - no plans for GI w/u Subjective ROS Limited/Unobtainable: No Allergies: Coded Allergies: IODINE AND IODIDE CONTAINING PRODUC (Unverified Allergy, Unknown, 10/09/19) SHELLFISH DERIVED (Unverified Allergy, Unknown, 10/09/19) Objective Last 24 Hour Vital Signs Date Time Temp Pulse Resp B/P (MAP) Pulse Ox O2 Delivery O2 Flow Rate FiO2 10/12/19 04:00 98.4 54 20 137/70 (92) 94 10/11/19 23:44 98.7 59 18 135/77 (96) 95 10/11/19 20:45 Room Air 10/11/19 20:00 98.4 59 18 118/68 (85) 95 10/11/19 12:00 98.5 68 18 125/62 (83) 98 Intake and Output 10/11/19 10/12/19 19:00 07:00 Intake Total 1600 ml Output Total 1500 ml 1200 ml Balance 100 ml -1200 ml Intake Oral 1000 ml IV Total 600 ml Output Urine Total 1500 ml 1200 ml # Voids 1 Height (Feet): 5 Height (Inches): 9.00 Weight (Pounds): 80 General Appearance: alert EENT: normal ENT inspection Neck: supple Cardiovascular: normal rate Respiratory/Chest: decreased breath sounds Abdomen: normal bowel sounds, non tender, soft Extremities: non-tender Terrence Markham MD Oct 12, 2019 09:42
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
--- NOTE | 2019-10-12 11:47 | Nephrology Progress Note ---
Assessment/Plan Problem List: (1) Electrolyte imbalance (2) Catheter-associated urinary tract infection (3) Dehydration Assessment UTI Suprapubic catheter Quadriplegia Dehydration Plan Check labs tomorrow Potassium supplement Monitor electrolytes hydrate Antibiotics Per orders Subjective ROS Limited/Unobtainable: No Constitutional: Reports: malaise Objective Objective Last 24 Hour Vital Signs Date Time Temp Pulse Resp B/P (MAP) Pulse Ox O2 Delivery O2 Flow Rate FiO2 10/12/19 09:00 Room Air 10/12/19 08:00 97.5 57 19 128/74 (92) 98 10/12/19 04:00 98.4 54 20 137/70 (92) 94 10/11/19 23:44 98.7 59 18 135/77 (96) 95 10/11/19 20:45 Room Air 10/11/19 20:00 98.4 59 18 118/68 (85) 95 10/11/19 12:00 98.5 68 18 125/62 (83) 98 Intake and Output 10/11/19 10/12/19 19:00 07:00 Intake Total 1600 ml Output Total 1500 ml 1200 ml Balance 100 ml -1200 ml Intake Oral 1000 ml IV Total 600 ml Output Urine Total 1500 ml 1200 ml # Voids 1 No labs drawn today Height (Feet): 5 Height (Inches): 9.00 Weight (Pounds): 80 General Appearance: no apparent distress Objective No change Abdulaziz Carrasco MD Oct 12, 2019 11:47
[2019-10-12 12:00] VITALS: BP 127/67
--- NOTE | 2019-10-12 12:00 | NUR ---
NURSE NOTES: Patient positive for (+) VRE rectum. Notified Dr. Simone Kim. Awaiting response.
--- NOTE | 2019-10-12 12:34 | Infectious Diseases Prog Note ---
Assessment/Plan Assessment/Plan IMPRESSION: Cystitis, Fungal UTI s/p Suprapubic catheter, paraplegia, pressure ulcers. RECOMMENDATION: Discontinue Zosyn. Start on Fluconazole Agree with discharge with PO antibiotic Subjective ROS Limited/Unobtainable: No Constitutional: Reports: no symptoms Respiratory: Reports: no symptoms Cardiovascular: Reports: no symptoms Gastrointestinal/Abdominal: Reports: no symptoms Allergies: Coded Allergies: IODINE AND IODIDE CONTAINING PRODUC (Unverified Allergy, Unknown, 10/09/19) SHELLFISH DERIVED (Unverified Allergy, Unknown, 10/09/19) Objective Vital Signs Last 24 Hour Vital Signs Date Time Temp Pulse Resp B/P (MAP) Pulse Ox O2 Delivery O2 Flow Rate FiO2 10/12/19 12:00 97.9 65 18 127/67 (87) 99 10/12/19 09:00 Room Air 10/12/19 08:00 97.5 57 19 128/74 (92) 98 10/12/19 04:00 98.4 54 20 137/70 (92) 94 10/11/19 23:44 98.7 59 18 135/77 (96) 95 10/11/19 20:45 Room Air 10/11/19 20:00 98.4 59 18 118/68 (85) 95 Height (Feet): 5 Height (Inches): 9.00 Weight (Pounds): 80 General Appearance: no acute distress HEENT: mucous membranes moist Respiratory/Chest: lungs clear Cardiovascular: normal rate Abdomen: soft, non tender Genitourinary: other - suprapubic catheter Skin: ulcers Neurologic/Psychiatric: alert, oriented x 3, responsive, other - paraplegic Microbiology Date/Time Source Procedure Growth Status 10/09/19 21:50 Nasal Nares MRSA Culture - Final NO METHICILLIN RESISTANT STAPH AUREUS... Complete 10/09/19 18:50 Urine,Clean Catch Urine Culture - Preliminary Yeast Species Resulted 10/09/19 21:50 Rectum VRE Culture - Final Enterococcus Faecalis - Vre Complete Current Medications Medications (Trade) Dose Ordered Sig/Jonathan Route PRN Reason Start Time Stop Time Status Last Admin Dose Admin Acetaminophen (Tylenol) 650 mg Q4H PRN ORAL MILD PAIN AND FEVER 10/09/19 23:00 11/08/19 22:59 Dextrose/Sodium Chloride 1,000 ml @ 75 mls/hr [id number] IV 10/10/19 12:00 11/09/19 11:59 10/12/19 03:44 Docusate Sodium (Colace) 100 mg THREE TIMES A DAY ORAL 10/10/19 13:00 11/09/19 12:59 10/11/19 18:18 Morphine Sulfate (Morphine Sulfate) 2 mg EVERY 6 HOURS PRN IVP Severe Pain (Pain Scale 7-10) 10/09/19 23:00 10/16/19 22:59 10/12/19 03:44 Ondansetron HCl (Zofran) 4 mg Q6H PRN IVP Nausea & Vomiting 10/09/19 23:00 11/08/19 22:59 Pantoprazole (Protonix) 40 mg EVERY 12 HOURS ORAL 10/10/19 12:00 11/09/19 11:59 10/11/19 21:08 Piperacillin Sod/ Tazobactam Sod 3.375 gm/Sodium Chloride 110 ml @ 27.5 mls/hr EVERY 8 HOURS IVPB 10/10/19 14:00 10/15/19 13:59 10/12/19 05:06 Potassium Chloride (K-Dur) 40 meq DAILY ORAL 10/11/19 12:00 01/09/20 11:59 10/11/19 18:18 Gigi Kim MD Oct 12, 2019 12:34
--- NOTE | 2019-10-12 13:31 | NUR ---
CASE MANAGEMENT:REVIEW SI;FUNGAL UTI (SUPRAPUBIC CATH). CYSTITIS. 98.4 54 20 137/70 94% ON RA NO LABS AVAILABLE URINE CX ~ +YEAST IS;DIFLUCAN PO QD ZOSYN IV Q8 HRS K-DUR PO QD IVF D5W @ 75 ML/HR MED SURG STATUS DCP;PATIENT IS HOMELESS
[2019-10-12] MEDS: Fluconazole 100mg tab ORAL SCH (14:03)
[2019-10-12 16:00] VITALS: BP 117/64
--- NOTE | 2019-10-12 16:23 | Surgery Progress Note ---
Surgery Progress Note Subjective Additional Comments leukocytosis anemia exam stable gloria cute events Objective Last 24 Hour Vital Signs Date Time Temp Pulse Resp B/P (MAP) Pulse Ox O2 Delivery O2 Flow Rate FiO2 10/12/19 16:00 97.6 59 18 117/64 (81) 97 10/12/19 12:00 97.9 65 18 127/67 (87) 99 10/12/19 09:00 Room Air 10/12/19 08:00 97.5 57 19 128/74 (92) 98 10/12/19 04:00 98.4 54 20 137/70 (92) 94 10/11/19 23:44 98.7 59 18 135/77 (96) 95 10/11/19 20:45 Room Air 10/11/19 20:00 98.4 59 18 118/68 (85) 95 I&O Intake and Output 10/11/19 10/12/19 19:00 07:00 Intake Total 1600 ml 75 ml Output Total 1500 ml 1200 ml Balance 100 ml -1125 ml Intake Oral 1000 ml IV Total 600 ml 75 ml Output Urine Total 1500 ml 1200 ml # Voids 1 Dressing: saturated Wound: other Cardiovascular: RSR Respiratory: decreased breath sounds Abdomen: soft, non-tender, present bowel sounds Extremities: no cyanosis Plan Problems: (1) Constipation (2) Decubitus skin ulcer (3) Abdominal pain Assessment & Plan: feeling better pain cramping abd exam benign wants food okay for diet trend labs abx as per id will follow with serial exams no acute surgical intervention planned The appendix is not definitely demonstrated, but no findings to suggest acute appendicitis are evident. There is no evidence of colonic diverticulosis or diverticulitis. No small bowel distention. No free or loculated intraperitoneal gas or fluid is evident. The distal esophagus, stomach, duodenum are unremarkable. There is a equivocal wall thickening of the distal rectum. Lack of IV contrast limits assessment of the solid organs. The liver demonstrates a cyst in the dome of segment 8. It demonstrates other scattered subcentimeter low-attenuation lesions which are too small to characterize the gallbladder, bile ducts, pancreas, spleen, adrenals, kidneys are all unremarkable. No retroperitoneal or mesenteric mass or adenopathy. There are prominent iliac chain nodes, largest a left external iliac node measuring 2.4 x 1.2 cm in diameter. The bladder is empty, contains a suprapubic catheter which appears to be well positioned. There is thickening of the retrococcygeal fat and evidence of some chronic appearing destructive changes of the coccyx. No evidence of ulceration. There is infiltration of the subcutaneous fat of the bilateral buttocks. Degenerative changes of the bilateral hips are noted. Dystrophic calcifications are seen in the left hip region. There is a complex calcified density in the right upper buttock region subcutaneous fat. There is chronic appearing distortion of the sacrum and there is thoracolumbar smooth dextro scoliotic deformity, may in part be an artifact of positioning. The included lung bases demonstrate a slight degree of mosaic perfusion at the left lung base. There is some atelectasis of the inferior lingula. Impression: Equivocal wall thickening of the distal rectum, if real could indicate proctitis or less likely mass lesion. Correlate with clinical findings. Pelvic adenopathy, could be reactive or neoplastic. This finding was phoned to Dr. Bond at the time of interpretation Empty bladder with a suprapubic catheter in good position Evidence of retrococcygeal decubitus changes and chronic erosive changes of the coccyx. No evidence of ulceration Right lobe liver cyst and subcentimeter low-attenuation liver lesions which are too small to characterize, most likely benign simple cysts Complex calcified density in the right upper buttock region is probably a large injection granuloma (4) Catheter-associated urinary tract infection Mohinder Deras Oct 12, 2019 16:23
--- NOTE | 2019-10-12 19:20 | NUR ---
NURSE NOTES: Report received from Franny NAVARRETE. Patient is awake and alert x4. Patient is noted to be on room air. Denies shortness of breath and chest pain. Patient noted to have 20 robyn IV in right AC with fluids running per MD orders. Patient noted to have suprapubic catheter. Draining clear yellow urine. Patient has no complaints at this time.Will continue to follow plan of care.
--- NOTE | 2019-10-12 19:43 | NUR ---
HAND-OFF: Report given to Ran NAVARRETE.
[2019-10-12 20:00] VITALS: BP 136/82
--- NOTE | 2019-10-12 20:33 | General Progress Note ---
Assessment/Plan Problem List: (1) Constipation ICD Codes: K59.00 - Constipation, unspecified SNOMED: 07424197 (2) Catheter-associated urinary tract infection ICD Codes: T83.511A - Infection and inflammatory reaction due to indwelling urethral catheter, initial encounter; N39.0 - Urinary tract infection, site not specified SNOMED: 175827020 (3) Dehydration ICD Codes: E86.0 - Dehydration SNOMED: 77016563 Status: progressing Assessment/Plan: low k leukocytosis clinically improving vre positive abx per id uti catheter associated reviewed chart and labs Subjective ROS Limited/Unobtainable: Yes Allergies: Coded Allergies: IODINE AND IODIDE CONTAINING PRODUC (Unverified Allergy, Unknown, 10/09/19) SHELLFISH DERIVED (Unverified Allergy, Unknown, 10/09/19) Objective Last 24 Hour Vital Signs Date Time Temp Pulse Resp B/P (MAP) Pulse Ox O2 Delivery O2 Flow Rate FiO2 10/12/19 20:02 Room Air 10/12/19 16:00 97.6 59 18 117/64 (81) 97 10/12/19 12:00 97.9 65 18 127/67 (87) 99 10/12/19 09:00 Room Air 10/12/19 08:00 97.5 57 19 128/74 (92) 98 10/12/19 04:00 98.4 54 20 137/70 (92) 94 10/11/19 23:44 98.7 59 18 135/77 (96) 95 10/11/19 20:45 Room Air Intake and Output 10/11/19 10/12/19 19:00 07:00 Intake Total 1600 ml 75 ml Output Total 1500 ml 1200 ml Balance 100 ml -1125 ml Intake Oral 1000 ml IV Total 600 ml 75 ml Output Urine Total 1500 ml 1200 ml # Voids 1 Height (Feet): 5 Height (Inches): 9.00 Weight (Pounds): 80 Cardiovascular: normal rate Jeffery Patino MD Oct 12, 2019 20:33
[2019-10-13] VITALS: BP 108/62
[2019-10-13 04:00] VITALS: BP 110/65
[2019-10-13] MEDS: D5NS 1,000 ML IV SCH ×2 (05:41→21:13)
--- NOTE | 2019-10-13 06:46 | General Progress Note ---
Assessment/Plan Status: progressing Assessment/Plan: Assessment/Plan Assessment/Plan: Assessment - Abd pain, resolved - UTI - S/p sp catheter - quadriplegia Recommendations - push po - abx -had BM - no plans for GI w/u Subjective Allergies: Coded Allergies: IODINE AND IODIDE CONTAINING PRODUC (Unverified Allergy, Unknown, 10/09/19) SHELLFISH DERIVED (Unverified Allergy, Unknown, 10/09/19) Objective Last 24 Hour Vital Signs Date Time Temp Pulse Resp B/P (MAP) Pulse Ox O2 Delivery O2 Flow Rate FiO2 10/13/19 04:00 97.5 65 16 110/65 (80) 95 10/13/19 00:00 99.1 82 18 108/62 (77) 98 10/12/19 20:02 Room Air 10/12/19 20:00 98.6 71 20 136/82 (100) 97 10/12/19 16:00 97.6 59 18 117/64 (81) 97 10/12/19 12:00 97.9 65 18 127/67 (87) 99 10/12/19 09:00 Room Air 10/12/19 08:00 97.5 57 19 128/74 (92) 98 Intake and Output 10/12/19 10/13/19 19:00 07:00 Intake Total 1700 ml 600 ml Output Total 2000 ml 2000 ml Balance -300 ml -1400 ml Intake Oral 800 ml IV Total 900 ml 600 ml Output Urine Total 2000 ml 2000 ml # Voids 2 # Bowel Movements 2 Height (Feet): 5 Height (Inches): 9.00 Weight (Pounds): 80 General Appearance: no apparent distress EENT: normal ENT inspection Neck: supple Cardiovascular: normal rate Respiratory/Chest: decreased breath sounds Abdomen: normal bowel sounds, non tender, soft Extremities: non-tender Terrence Markham MD Oct 13, 2019 06:46
--- NOTE | 2019-10-13 07:25 | NUR ---
NURSE NOTES: Report received from ROSALBA Tong. Patient is awake, alert, oriented x4. Able to make things known. Patient is noted to be on room air. Denies shortness of breath and chest pain. IV site on right AC patent and intact. IVF infusing well. suprapubic catheter inplaced and drain clear yellow urine. bed is in the lowest position. siderails are up x2. brakes and locked engaged and call light is within reach. Will continue to follow plan of care.
--- NOTE | 2019-10-13 07:26 | NUR ---
HAND-OFF: Report given to Jana NAVARRETE.
[2019-10-13 07:58] LABS: EOSINOPHILS % (AUTO) 4.4 % (0.0-3.0); HEMOGLOBIN 13.6 G/DL (14.2-18.0); LYMPHOCYTES % (AUTO) 18.7 % (20.0-45.0); MEAN CORPUSCULAR VOLUME 84 FL (80-99); MONOCYTES % (AUTO) 7.7 % (1.0-10.0); NEUTROPHILS % (AUTO) 68.1 % (45.0-75.0); PLATELET COUNT 242 K/UL (150-450); RED BLOOD COUNT 4.54 M/UL (4.70-6.10); RED CELL DISTRIBUTION WIDTH 11.7 % (11.6-14.8); WHITE BLOOD COUNT 10.3 K/UL (4.8-10.8)
[2019-10-13 08:00] VITALS: BP 142/74
[2019-10-13] MEDS: Docusate 100mg cap ORAL SCH ×3 (08:09→17:37)
[2019-10-13] MEDS: Fluconazole 100mg tab ORAL SCH (08:11)
[2019-10-13 08:44] LABS: ALANINE AMINOTRANSFERASE 12 U/L (12-78); ALBUMIN 2.9 G/DL (3.4-5.0); ALBUMIN/GLOBULIN RATIO 0.7 (1.0-2.7); ALKALINE PHOSPHATASE 84 U/L (46-116); ANION GAP 11 mmol/L (5-15); ASPARTATE AMINO TRANSFERASE 14 U/L (15-37); BILIRUBIN,TOTAL 0.6 MG/DL (0.2-1.0); BLOOD UREA NITROGEN 8 mg/dL (7-18); CALCIUM 9.2 MG/DL (8.5-10.1); CARBON DIOXIDE 25 MMOL/L (21-32); CHLORIDE 104 MMOL/L (98-107); CREATININE 0.5 MG/DL (0.55-1.30); PHOSPHORUS 3.8 MG/DL (2.5-4.9); SODIUM 140 MMOL/L (136-145)
--- NOTE | 2019-10-13 11:39 | Nephrology Progress Note ---
Assessment/Plan Problem List: (1) Electrolyte imbalance (2) Catheter-associated urinary tract infection (3) Dehydration Assessment UTI Suprapubic catheter Quadriplegia Dehydration Plan Today's labs checked Potassium supplement as needed Monitor electrolytes hydrate Antibiotics Per orders Stable from renal standpoint of view Subjective ROS Limited/Unobtainable: No Objective Objective Last 24 Hour Vital Signs Date Time Temp Pulse Resp B/P (MAP) Pulse Ox O2 Delivery O2 Flow Rate FiO2 10/13/19 09:00 Room Air 10/13/19 08:00 98.2 55 18 142/74 (96) 97 10/13/19 04:00 97.5 65 16 110/65 (80) 95 10/13/19 00:00 99.1 82 18 108/62 (77) 98 10/12/19 20:02 Room Air 10/12/19 20:00 98.6 71 20 136/82 (100) 97 10/12/19 16:00 97.6 59 18 117/64 (81) 97 10/12/19 12:00 97.9 65 18 127/67 (87) 99 Intake and Output 10/12/19 10/13/19 19:00 07:00 Intake Total 1700 ml 600 ml Output Total 2000 ml 2000 ml Balance -300 ml -1400 ml Intake Oral 800 ml IV Total 900 ml 600 ml Output Urine Total 2000 ml 2000 ml # Voids 2 # Bowel Movements 2 Current Medications Medications (Trade) Dose Ordered Sig/Jonathan Route PRN Reason Start Time Stop Time Status Last Admin Dose Admin Acetaminophen (Tylenol) 650 mg Q4H PRN ORAL MILD PAIN AND FEVER 10/09/19 23:00 11/08/19 22:59 Dextrose/Sodium Chloride 1,000 ml @ 75 mls/hr [id number] IV 10/10/19 12:00 11/09/19 11:59 10/13/19 05:41 Docusate Sodium (Colace) 100 mg THREE TIMES A DAY ORAL 10/10/19 13:00 11/09/19 12:59 10/11/19 18:18 Fluconazole (Diflucan) 200 mg DAILY ORAL 10/12/19 12:45 10/19/19 12:44 10/13/19 08:11 Morphine Sulfate (Morphine Sulfate) 2 mg EVERY 6 HOURS PRN IVP Severe Pain (Pain Scale 7-10) 10/09/19 23:00 10/16/19 22:59 10/12/19 03:44 Ondansetron HCl (Zofran) 4 mg Q6H PRN IVP Nausea & Vomiting 10/09/19 23:00 11/08/19 22:59 Pantoprazole (Protonix) 40 mg EVERY 12 HOURS ORAL 10/10/19 12:00 11/09/19 11:59 10/13/19 08:11 Potassium Chloride (K-Dur) 40 meq DAILY ORAL 10/11/19 12:00 01/09/20 11:59 10/11/19 18:18 Laboratory Tests 10/13/19 07:25: White Blood Count 10.3, Red Blood Count 4.54L, Hemoglobin 13.6L, Hematocrit 38.0L, Mean Corpuscular Volume 84, Mean Corpuscular Hemoglobin 30.0, Mean Corpuscular Hemoglobin Concent 35.8, Red Cell Distribution Width 11.7, Platelet Count 242, Mean Platelet Volume 5.8L, Neutrophils (%) (Auto) 68.1, Lymphocytes ( %) (Auto) 18.7L, Monocytes (%) (Auto) 7.7, Eosinophils (%) (Auto) 4.4H, Basophils (%) (Auto) 1.0, Sodium Level 140, Potassium Level 4.0, Chloride Level 104, Carbon Dioxide Level 25, Anion Gap 11, Blood Urea Nitrogen 8, Creatinine 0.5L, Estimat Glomerular Filtration Rate > 60, Glucose Level 95, Calcium Level 9.2, Phosphorus Level 3.8, Magnesium Level 2.0, Total Bilirubin 0.6, Aspartate Amino Transf (AST/SGOT) 14L, Alanine Aminotransferase (ALT/SGPT) 12, Alkaline Phosphatase 84, C-Reactive Protein, Quantitative 3.5H, Total Protein 6.9, Albumin 2.9L, Globulin 4.0, Albumin/Globulin Ratio 0.7L Height (Feet): 5 Height (Inches): 9.00 Weight (Pounds): 80 General Appearance: no apparent distress Objective No change Abdulaziz Carrasco MD Oct 13, 2019 11:39
[2019-10-13 11:50] VITALS: BP 135/69
--- NOTE | 2019-10-13 12:32 | Infectious Diseases Prog Note ---
Assessment/Plan Assessment/Plan antibiotics : fluconazole A 1. fungal UTI 2. s/p SPC 3. paraplegia 4. pressure ulcers P 1. continue fluconazole 2. will follow up cultures Subjective Constitutional: Denies: fever, chills Respiratory: Denies: shortness of breath, dry cough Gastrointestinal/Abdominal: Denies: nausea, vomiting, diarrhea Musculoskeletal: Denies: pain Allergies: Coded Allergies: IODINE AND IODIDE CONTAINING PRODUC (Unverified Allergy, Unknown, 10/09/19) SHELLFISH DERIVED (Unverified Allergy, Unknown, 10/09/19) Objective Vital Signs Last 24 Hour Vital Signs Date Time Temp Pulse Resp B/P (MAP) Pulse Ox O2 Delivery O2 Flow Rate FiO2 10/13/19 11:50 97.7 55 18 135/69 (91) 98 10/13/19 09:00 Room Air 10/13/19 08:00 98.2 55 18 142/74 (96) 97 10/13/19 04:00 97.5 65 16 110/65 (80) 95 10/13/19 00:00 99.1 82 18 108/62 (77) 98 10/12/19 20:02 Room Air 10/12/19 20:00 98.6 71 20 136/82 (100) 97 10/12/19 16:00 97.6 59 18 117/64 (81) 97 Height (Feet): 5 Height (Inches): 9.00 Weight (Pounds): 80 Respiratory/Chest: lungs clear Cardiovascular: normal rate, regular rhythm, no gallop/murmur Abdomen: soft, non tender, other - SPC Extremities: no edema Laboratory Tests Test 10/13/19 07:25 White Blood Count 10.3 K/UL (4.8-10.8) Red Blood Count 4.54 M/UL (4.70-6.10) L Hemoglobin 13.6 G/DL (14.2-18.0) L Hematocrit 38.0 % (42.0-52.0) L Mean Corpuscular Volume 84 FL (80-99) Mean Corpuscular Hemoglobin 30.0 PG (27.0-31.0) Mean Corpuscular Hemoglobin Concent 35.8 G/DL (32.0-36.0) Red Cell Distribution Width 11.7 % (11.6-14.8) Platelet Count 242 K/UL (150-450) Mean Platelet Volume 5.8 FL (6.5-10.1) L Neutrophils (%) (Auto) 68.1 % (45.0-75.0) Lymphocytes (%) (Auto) 18.7 % (20.0-45.0) L Monocytes (%) (Auto) 7.7 % (1.0-10.0) Eosinophils (%) (Auto) 4.4 % (0.0-3.0) H Basophils (%) (Auto) 1.0 % (0.0-2.0) Sodium Level 140 MMOL/L (136-145) Potassium Level 4.0 MMOL/L (3.5-5.1) Chloride Level 104 MMOL/L (98-107) Carbon Dioxide Level 25 MMOL/L (21-32) Anion Gap 11 mmol/L (5-15) Blood Urea Nitrogen 8 mg/dL (7-18) Creatinine 0.5 MG/DL (0.55-1.30) L Estimat Glomerular Filtration Rate > 60 mL/min (>60) Glucose Level 95 MG/DL (74-106) Calcium Level 9.2 MG/DL (8.5-10.1) Phosphorus Level 3.8 MG/DL (2.5-4.9) Magnesium Level 2.0 MG/DL (1.8-2.4) Total Bilirubin 0.6 MG/DL (0.2-1.0) Aspartate Amino Transf (AST/SGOT) 14 U/L (15-37) L Alanine Aminotransferase (ALT/SGPT) 12 U/L (12-78) Alkaline Phosphatase 84 U/L (46-116) C-Reactive Protein, Quantitative 3.5 mg/dL (0.00-0.90) H Total Protein 6.9 G/DL (6.4-8.2) Albumin 2.9 G/DL (3.4-5.0) L Globulin 4.0 g/dL Albumin/Globulin Ratio 0.7 (1.0-2.7) L Current Medications Medications (Trade) Dose Ordered Sig/Jonathan Route PRN Reason Start Time Stop Time Status Last Admin Dose Admin Acetaminophen (Tylenol) 650 mg Q4H PRN ORAL MILD PAIN AND FEVER 10/09/19 23:00 11/08/19 22:59 Dextrose/Sodium Chloride 1,000 ml @ 75 mls/hr [id number] IV 10/10/19 12:00 11/09/19 11:59 10/13/19 05:41 Docusate Sodium (Colace) 100 mg THREE TIMES A DAY ORAL 10/10/19 13:00 11/09/19 12:59 10/11/19 18:18 Fluconazole (Diflucan) 200 mg DAILY ORAL 10/12/19 12:45 10/19/19 12:44 10/13/19 08:11 Morphine Sulfate (Morphine Sulfate) 2 mg EVERY 6 HOURS PRN IVP Severe Pain (Pain Scale 7-10) 10/09/19 23:00 10/16/19 22:59 10/12/19 03:44 Ondansetron HCl (Zofran) 4 mg Q6H PRN IVP Nausea & Vomiting 10/09/19 23:00 11/08/19 22:59 Pantoprazole (Protonix) 40 mg EVERY 12 HOURS ORAL 10/10/19 12:00 11/09/19 11:59 10/13/19 08:11 Potassium Chloride (K-Dur) 40 meq DAILY ORAL 10/11/19 12:00 01/09/20 11:59 10/11/19 18:18 Anthony Jarrell MD Oct 13, 2019 12:31
[2019-10-13 16:00] VITALS: BP 106/58
--- NOTE | 2019-10-13 19:21 | NUR ---
HAND-OFF: Report given to Minsu.
--- NOTE | 2019-10-13 19:29 | NUR ---
NURSE NOTES: Patient awake, alert, and verbally responsive. Breathing unlabored on room air without distress. Denies pain or discomfort at this time. IV noted on right antecubital intact, dry, and patent running IVF as ordered. Bed placed at the lowest with alarm, brake, and siderails up for safety. Call light placed within reach and encouraged to use. Will continue to monitor and provide care as ordered.
--- NOTE | 2019-10-13 19:44 | Surgery Progress Note ---
Surgery Progress Note Subjective Additional Comments no acute events comfortable stable Objective Last 24 Hour Vital Signs Date Time Temp Pulse Resp B/P (MAP) Pulse Ox O2 Delivery O2 Flow Rate FiO2 10/13/19 16:00 97.7 63 18 106/58 (74) 95 10/13/19 11:50 97.7 55 18 135/69 (91) 98 10/13/19 09:00 Room Air 10/13/19 08:00 98.2 55 18 142/74 (96) 97 10/13/19 04:00 97.5 65 16 110/65 (80) 95 10/13/19 00:00 99.1 82 18 108/62 (77) 98 10/12/19 20:02 Room Air 10/12/19 20:00 98.6 71 20 136/82 (100) 97 I&O Intake and Output 10/12/19 10/13/19 19:00 07:00 Intake Total 1700 ml 675 ml Output Total 2000 ml 2000 ml Balance -300 ml -1325 ml Intake Oral 800 ml IV Total 900 ml 675 ml Output Urine Total 2000 ml 2000 ml # Voids 2 # Bowel Movements 2 Dressing: saturated Wound: clean Cardiovascular: RSR Respiratory: clear, decreased breath sounds Abdomen: soft, non-tender, present bowel sounds Extremities: no cyanosis Laboratory Tests Test 10/13/19 07:25 White Blood Count 10.3 K/UL (4.8-10.8) Red Blood Count 4.54 M/UL (4.70-6.10) L Hemoglobin 13.6 G/DL (14.2-18.0) L Hematocrit 38.0 % (42.0-52.0) L Mean Corpuscular Volume 84 FL (80-99) Mean Corpuscular Hemoglobin 30.0 PG (27.0-31.0) Mean Corpuscular Hemoglobin Concent 35.8 G/DL (32.0-36.0) Red Cell Distribution Width 11.7 % (11.6-14.8) Platelet Count 242 K/UL (150-450) Mean Platelet Volume 5.8 FL (6.5-10.1) L Neutrophils (%) (Auto) 68.1 % (45.0-75.0) Lymphocytes (%) (Auto) 18.7 % (20.0-45.0) L Monocytes (%) (Auto) 7.7 % (1.0-10.0) Eosinophils (%) (Auto) 4.4 % (0.0-3.0) H Basophils (%) (Auto) 1.0 % (0.0-2.0) Sodium Level 140 MMOL/L (136-145) Potassium Level 4.0 MMOL/L (3.5-5.1) Chloride Level 104 MMOL/L (98-107) Carbon Dioxide Level 25 MMOL/L (21-32) Anion Gap 11 mmol/L (5-15) Blood Urea Nitrogen 8 mg/dL (7-18) Creatinine 0.5 MG/DL (0.55-1.30) L Estimat Glomerular Filtration Rate > 60 mL/min (>60) Glucose Level 95 MG/DL (74-106) Calcium Level 9.2 MG/DL (8.5-10.1) Phosphorus Level 3.8 MG/DL (2.5-4.9) Magnesium Level 2.0 MG/DL (1.8-2.4) Total Bilirubin 0.6 MG/DL (0.2-1.0) Aspartate Amino Transf (AST/SGOT) 14 U/L (15-37) L Alanine Aminotransferase (ALT/SGPT) 12 U/L (12-78) Alkaline Phosphatase 84 U/L (46-116) C-Reactive Protein, Quantitative 3.5 mg/dL (0.00-0.90) H Total Protein 6.9 G/DL (6.4-8.2) Albumin 2.9 G/DL (3.4-5.0) L Globulin 4.0 g/dL Albumin/Globulin Ratio 0.7 (1.0-2.7) L Plan Problems: (1) Constipation (2) Decubitus skin ulcer (3) Abdominal pain Assessment & Plan: feeling better pain cramping abd exam benign wants food okay for diet trend labs abx as per id will follow with serial exams no acute surgical intervention planned The appendix is not definitely demonstrated, but no findings to suggest acute appendicitis are evident. There is no evidence of colonic diverticulosis or diverticulitis. No small bowel distention. No free or loculated intraperitoneal gas or fluid is evident. The distal esophagus, stomach, duodenum are unremarkable. There is a equivocal wall thickening of the distal rectum. Lack of IV contrast limits assessment of the solid organs. The liver demonstrates a cyst in the dome of segment 8. It demonstrates other scattered subcentimeter low-attenuation lesions which are too small to characterize the gallbladder, bile ducts, pancreas, spleen, adrenals, kidneys are all unremarkable. No retroperitoneal or mesenteric mass or adenopathy. There are prominent iliac chain nodes, largest a left external iliac node measuring 2.4 x 1.2 cm in diameter. The bladder is empty, contains a suprapubic catheter which appears to be well positioned. There is thickening of the retrococcygeal fat and evidence of some chronic appearing destructive changes of the coccyx. No evidence of ulceration. There is infiltration of the subcutaneous fat of the bilateral buttocks. Degenerative changes of the bilateral hips are noted. Dystrophic calcifications are seen in the left hip region. There is a complex calcified density in the right upper buttock region subcutaneous fat. There is chronic appearing distortion of the sacrum and there is thoracolumbar smooth dextro scoliotic deformity, may in part be an artifact of positioning. The included lung bases demonstrate a slight degree of mosaic perfusion at the left lung base. There is some atelectasis of the inferior lingula. Impression: Equivocal wall thickening of the distal rectum, if real could indicate proctitis or less likely mass lesion. Correlate with clinical findings. Pelvic adenopathy, could be reactive or neoplastic. This finding was phoned to Dr. Bond at the time of interpretation Empty bladder with a suprapubic catheter in good position Evidence of retrococcygeal decubitus changes and chronic erosive changes of the coccyx. No evidence of ulceration Right lobe liver cyst and subcentimeter low-attenuation liver lesions which are too small to characterize, most likely benign simple cysts Complex calcified density in the right upper buttock region is probably a large injection granuloma (4) Catheter-associated urinary tract infection Mohinder Deras Oct 13, 2019 19:44
[2019-10-13 20:00] VITALS: BP 93/52
--- NOTE | 2019-10-13 23:12 | General Progress Note ---
Assessment/Plan Problem List: (1) Constipation ICD Codes: K59.00 - Constipation, unspecified SNOMED: 69941923 (2) Catheter-associated urinary tract infection ICD Codes: T83.511A - Infection and inflammatory reaction due to indwelling urethral catheter, initial encounter; N39.0 - Urinary tract infection, site not specified SNOMED: 347650007 (3) Dehydration ICD Codes: E86.0 - Dehydration SNOMED: 39714245 Status: progressing Assessment/Plan: lytes improved afebrile clinically improving abx per id uti catheter associated reviewed chart and labs Subjective ROS Limited/Unobtainable: Yes Allergies: Coded Allergies: IODINE AND IODIDE CONTAINING PRODUC (Unverified Allergy, Unknown, 10/09/19) SHELLFISH DERIVED (Unverified Allergy, Unknown, 10/09/19) Objective Last 24 Hour Vital Signs Date Time Temp Pulse Resp B/P (MAP) Pulse Ox O2 Delivery O2 Flow Rate FiO2 10/13/19 21:00 Room Air 10/13/19 20:00 97.9 63 14 93/52 (66) 92 10/13/19 16:00 97.7 63 18 106/58 (74) 95 10/13/19 11:50 97.7 55 18 135/69 (91) 98 10/13/19 09:00 Room Air 10/13/19 08:00 98.2 55 18 142/74 (96) 97 10/13/19 04:00 97.5 65 16 110/65 (80) 95 10/13/19 00:00 99.1 82 18 108/62 (77) 98 Intake and Output 10/12/19 10/13/19 19:00 07:00 Intake Total 1700 ml 675 ml Output Total 2000 ml 2000 ml Balance -300 ml -1325 ml Intake Oral 800 ml IV Total 900 ml 675 ml Output Urine Total 2000 ml 2000 ml # Voids 2 # Bowel Movements 2 Laboratory Tests 10/13/19 07:25: White Blood Count 10.3, Red Blood Count 4.54L, Hemoglobin 13.6L, Hematocrit 38.0L, Mean Corpuscular Volume 84, Mean Corpuscular Hemoglobin 30.0, Mean Corpuscular Hemoglobin Concent 35.8, Red Cell Distribution Width 11.7, Platelet Count 242, Mean Platelet Volume 5.8L, Neutrophils (%) (Auto) 68.1, Lymphocytes ( %) (Auto) 18.7L, Monocytes (%) (Auto) 7.7, Eosinophils (%) (Auto) 4.4H, Basophils (%) (Auto) 1.0, Sodium Level 140, Potassium Level 4.0, Chloride Level 104, Carbon Dioxide Level 25, Anion Gap 11, Blood Urea Nitrogen 8, Creatinine 0.5L, Estimat Glomerular Filtration Rate > 60, Glucose Level 95, Calcium Level 9.2, Phosphorus Level 3.8, Magnesium Level 2.0, Total Bilirubin 0.6, Aspartate Amino Transf (AST/SGOT) 14L, Alanine Aminotransferase (ALT/SGPT) 12, Alkaline Phosphatase 84, C-Reactive Protein, Quantitative 3.5H, Total Protein 6.9, Albumin 2.9L, Globulin 4.0, Albumin/Globulin Ratio 0.7L Height (Feet): 5 Height (Inches): 9.00 Weight (Pounds): 80 Cardiovascular: normal rate Respiratory/Chest: lungs clear Abdomen: soft Jeffery Patino MD Oct 13, 2019 23:12
[2019-10-14] VITALS: BP 101/61
[2019-10-14 04:00] VITALS: BP 120/73
--- NOTE | 2019-10-14 04:22 | NUR ---
NURSE NOTES: Patient a/a/o x 4. Patient refused medellin anchor at this time. Offered a new replacement, but patient said he is okay without it. Encouraged patient to have the medellin anchor and cautioned at this time to be careful on possible dislodgement. Patient verbally acknowledge but said he is "okay" on medellin anchor at this time. Will continue to monitor.
--- NOTE | 2019-10-14 07:00 | General Progress Note ---
Assessment/Plan Status: progressing Assessment/Plan: Assessment/Plan Assessment/Plan: Assessment - Abd pain, resolved - UTI - S/p sp catheter - quadriplegia Recommendations - push po - abx - no plans for GI w/u -recent labs and notes reviewed Subjective ROS Limited/Unobtainable: Yes Allergies: Coded Allergies: IODINE AND IODIDE CONTAINING PRODUC (Unverified Allergy, Unknown, 10/09/19) SHELLFISH DERIVED (Unverified Allergy, Unknown, 10/09/19) Objective Last 24 Hour Vital Signs Date Time Temp Pulse Resp B/P (MAP) Pulse Ox O2 Delivery O2 Flow Rate FiO2 10/14/19 04:00 97.3 64 20 120/73 (89) 95 10/14/19 00:00 97.3 61 16 101/61 (74) 93 10/13/19 21:00 Room Air 10/13/19 20:00 97.9 63 14 93/52 (66) 92 10/13/19 16:00 97.7 63 18 106/58 (74) 95 10/13/19 11:50 97.7 55 18 135/69 (91) 98 10/13/19 09:00 Room Air 10/13/19 08:00 98.2 55 18 142/74 (96) 97 Intake and Output 10/13/19 10/14/19 19:00 07:00 Intake Total 930 ml 1185 ml Output Total 1300 ml Balance 930 ml -115 ml Intake Oral 480 ml 360 ml IV Total 450 ml 825 ml Output Urine Total 1300 ml Laboratory Tests 10/13/19 07:25: White Blood Count 10.3, Red Blood Count 4.54L, Hemoglobin 13.6L, Hematocrit 38.0L, Mean Corpuscular Volume 84, Mean Corpuscular Hemoglobin 30.0, Mean Corpuscular Hemoglobin Concent 35.8, Red Cell Distribution Width 11.7, Platelet Count 242, Mean Platelet Volume 5.8L, Neutrophils (%) (Auto) 68.1, Lymphocytes ( %) (Auto) 18.7L, Monocytes (%) (Auto) 7.7, Eosinophils (%) (Auto) 4.4H, Basophils (%) (Auto) 1.0, Sodium Level 140, Potassium Level 4.0, Chloride Level 104, Carbon Dioxide Level 25, Anion Gap 11, Blood Urea Nitrogen 8, Creatinine 0.5L, Estimat Glomerular Filtration Rate > 60, Glucose Level 95, Calcium Level 9.2, Phosphorus Level 3.8, Magnesium Level 2.0, Total Bilirubin 0.6, Aspartate Amino Transf (AST/SGOT) 14L, Alanine Aminotransferase (ALT/SGPT) 12, Alkaline Phosphatase 84, C-Reactive Protein, Quantitative 3.5H, Total Protein 6.9, Albumin 2.9L, Globulin 4.0, Albumin/Globulin Ratio 0.7L Height (Feet): 5 Height (Inches): 9.00 Weight (Pounds): 80 General Appearance: alert EENT: normal ENT inspection Neck: supple Cardiovascular: normal rate Respiratory/Chest: decreased breath sounds Abdomen: normal bowel sounds, non tender, soft Extremities: non-tender Terrence Markham MD Oct 14, 2019 07:00
--- NOTE | 2019-10-14 07:36 | NUR ---
HAND-OFF: Report given to CAN Bates. Plan of care endorsed.
--- NOTE | 2019-10-14 07:40 | NUR ---
NURSE NOTES: Patient awake, alert, and verbally responsive. Breathing unlabored on room air without distress. Denies pain or discomfort at this time. IV noted on right antecubital intact, dry, and patent running IVF as ordered. Bed placed at the lowest with alarm, brake, and siderails up x2 for safety. Call light placed within reach and encouraged to use. Will continue to monitor and provide care as ordered.
[2019-10-14 08:00] VITALS: BP 113/70
[2019-10-14 08:42] LABS: BASOPHILS % (AUTO) 0.5 % (0.0-2.0); EOSINOPHILS % (AUTO) 4.3 % (0.0-3.0); HEMATOCRIT 39.1 % (42.0-52.0); HEMOGLOBIN 13.6 G/DL (14.2-18.0); LYMPHOCYTES % (AUTO) 13.9 % (20.0-45.0); MEAN CORPUSCULAR VOLUME 84 FL (80-99); MONOCYTES % (AUTO) 7.3 % (1.0-10.0); PLATELET COUNT 247 K/UL (150-450); RED BLOOD COUNT 4.68 M/UL (4.70-6.10)
[2019-10-14] MEDS: Docusate 100mg cap ORAL SCH ×3 (08:45→17:12)
[2019-10-14] MEDS: Fluconazole 100mg tab ORAL SCH (08:45)
[2019-10-14] MEDS: D5NS 1,000 ML IV SCH (08:46)
[2019-10-14 09:03] LABS: ALANINE AMINOTRANSFERASE 28 U/L (12-78); ALBUMIN/GLOBULIN RATIO 0.7 (1.0-2.7); ALKALINE PHOSPHATASE 83 U/L (46-116); ANION GAP 11 mmol/L (5-15); ASPARTATE AMINO TRANSFERASE 21 U/L (15-37); BILIRUBIN,TOTAL 0.5 MG/DL (0.2-1.0); BLOOD UREA NITROGEN 14 mg/dL (7-18); CARBON DIOXIDE 25 MMOL/L (21-32); CHLORIDE 105 MMOL/L (98-107); CREATININE 0.6 MG/DL (0.55-1.30); SODIUM 141 MMOL/L (136-145)
--- NOTE | 2019-10-14 11:39 | NUR ---
RD ASSESSMENT & RECOMMENDATIONS SEE CARE ACTIVITY FOR COMPLETE ASSESSMENT DAILY ESTIMATED NEEDS: Needs based on Wounds, paraplegia 71kg 25-30 kcals/kg 3768-4705 total kcals 1.25-1.5 g protein/kg 89-107 g total protein 25-30 mL/kg 4081-4090 total fluid mLs NUTRITION DIAGNOSIS: Increased kcal and pro needs r/t wound healing as evidenced by full thickness wound R buttocks. CURRENT DIET: Regular PO DIET RECOMMENDATIONS: maintain Regular diet as tolerated ADDITIONAL RECOMMENDATIONS: 1) Add Ensure Enlive qdaily 2) wound care: add KYLIE BID + Vit C 250mg BID + MVI w/ min qdaily 3) Obtain a calibrated bed scale wt
[2019-10-14 12:00] VITALS: BP 145/78
--- NOTE | 2019-10-14 12:34 | Nephrology Progress Note ---
Assessment/Plan Problem List: (1) Electrolyte imbalance (2) Catheter-associated urinary tract infection (3) Dehydration Assessment UTI Suprapubic catheter Quadriplegia Dehydration Plan Today's labs checked Potassium supplement as needed Monitor electrolytes Stop hydrate Antibiotics Per orders Stable from renal standpoint of view Subjective ROS Limited/Unobtainable: No Objective Objective Last 24 Hour Vital Signs Date Time Temp Pulse Resp B/P (MAP) Pulse Ox O2 Delivery O2 Flow Rate FiO2 10/14/19 08:54 Room Air 10/14/19 08:00 97.8 60 18 113/70 (84) 98 10/14/19 04:00 97.3 64 20 120/73 (89) 95 10/14/19 00:00 97.3 61 16 101/61 (74) 93 10/13/19 21:00 Room Air 10/13/19 20:00 97.9 63 14 93/52 (66) 92 10/13/19 16:00 97.7 63 18 106/58 (74) 95 Intake and Output 10/13/19 10/14/19 19:00 07:00 Intake Total 930 ml 1260 ml Output Total 1300 ml Balance 930 ml -40 ml Intake Oral 480 ml 360 ml IV Total 450 ml 900 ml Output Urine Total 1300 ml Laboratory Tests 10/14/19 07:58: White Blood Count 10.0, Red Blood Count 4.68L, Hemoglobin 13.6L, Hematocrit 39.1L, Mean Corpuscular Volume 84, Mean Corpuscular Hemoglobin 29.1, Mean Corpuscular Hemoglobin Concent 34.8, Red Cell Distribution Width 12.0, Platelet Count 247, Mean Platelet Volume 6.1L, Neutrophils (%) (Auto) 74.0, Lymphocytes ( %) (Auto) 13.9L, Monocytes (%) (Auto) 7.3, Eosinophils (%) (Auto) 4.3H, Basophils (%) (Auto) 0.5, Sodium Level 141, Potassium Level 4.0, Chloride Level 105, Carbon Dioxide Level 25, Anion Gap 11, Blood Urea Nitrogen 14, Creatinine 0.6, Estimat Glomerular Filtration Rate > 60, Glucose Level 107H, Calcium Level 9.0, Total Bilirubin 0.5, Aspartate Amino Transf (AST/SGOT) 21, Alanine Aminotransferase (ALT/SGPT) 28, Alkaline Phosphatase 83, Total Protein 7.2, Albumin 3.0L, Globulin 4.2, Albumin/Globulin Ratio 0.7L Height (Feet): 5 Height (Inches): 9.00 Weight (Pounds): 80 General Appearance: no apparent distress Objective No change Abdulaziz Carrasco MD Oct 14, 2019 12:34
--- NOTE | 2019-10-14 14:58 | Infectious Diseases Prog Note ---
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 RECOMMENDATION: continue Fluconazole Subjective ROS Limited/Unobtainable: No Constitutional: Reports: no symptoms, other - feels better Respiratory: Reports: no symptoms Cardiovascular: Reports: no symptoms Gastrointestinal/Abdominal: Reports: no symptoms Musculoskeletal: Denies: pain Allergies: Coded Allergies: IODINE AND IODIDE CONTAINING PRODUC (Unverified Allergy, Unknown, 10/09/19) SHELLFISH DERIVED (Unverified Allergy, Unknown, 10/09/19) Objective Vital Signs Last 24 Hour Vital Signs Date Time Temp Pulse Resp B/P (MAP) Pulse Ox O2 Delivery O2 Flow Rate FiO2 10/14/19 12:00 98.1 59 19 145/78 (100) 97 10/14/19 08:54 Room Air 10/14/19 08:00 97.8 60 18 113/70 (84) 98 10/14/19 04:00 97.3 64 20 120/73 (89) 95 10/14/19 00:00 97.3 61 16 101/61 (74) 93 10/13/19 21:00 Room Air 10/13/19 20:00 97.9 63 14 93/52 (66) 92 10/13/19 16:00 97.7 63 18 106/58 (74) 95 Height (Feet): 5 Height (Inches): 9.00 Weight (Pounds): 80 General Appearance: no acute distress HEENT: mucous membranes moist Respiratory/Chest: lungs clear Cardiovascular: normal rate Abdomen: soft, non tender Genitourinary: other - suprapubic catheter Extremities: no edema, other - contracted legs Skin: ulcers, other - superficial pressure ulcers Neurologic/Psychiatric: alert, oriented x 3, responsive Laboratory Tests Test 10/14/19 07:58 White Blood Count 10.0 K/UL (4.8-10.8) Red Blood Count 4.68 M/UL (4.70-6.10) L Hemoglobin 13.6 G/DL (14.2-18.0) L Hematocrit 39.1 % (42.0-52.0) L Mean Corpuscular Volume 84 FL (80-99) Mean Corpuscular Hemoglobin 29.1 PG (27.0-31.0) Mean Corpuscular Hemoglobin Concent 34.8 G/DL (32.0-36.0) Red Cell Distribution Width 12.0 % (11.6-14.8) Platelet Count 247 K/UL (150-450) Mean Platelet Volume 6.1 FL (6.5-10.1) L Neutrophils (%) (Auto) 74.0 % (45.0-75.0) Lymphocytes (%) (Auto) 13.9 % (20.0-45.0) L Monocytes (%) (Auto) 7.3 % (1.0-10.0) Eosinophils (%) (Auto) 4.3 % (0.0-3.0) H Basophils (%) (Auto) 0.5 % (0.0-2.0) Sodium Level 141 MMOL/L (136-145) Potassium Level 4.0 MMOL/L (3.5-5.1) Chloride Level 105 MMOL/L (98-107) Carbon Dioxide Level 25 MMOL/L (21-32) Anion Gap 11 mmol/L (5-15) Blood Urea Nitrogen 14 mg/dL (7-18) Creatinine 0.6 MG/DL (0.55-1.30) Estimat Glomerular Filtration Rate > 60 mL/min (>60) Glucose Level 107 MG/DL (74-106) H Calcium Level 9.0 MG/DL (8.5-10.1) Total Bilirubin 0.5 MG/DL (0.2-1.0) Aspartate Amino Transf (AST/SGOT) 21 U/L (15-37) Alanine Aminotransferase (ALT/SGPT) 28 U/L (12-78) Alkaline Phosphatase 83 U/L (46-116) Total Protein 7.2 G/DL (6.4-8.2) Albumin 3.0 G/DL (3.4-5.0) L Globulin 4.2 g/dL Albumin/Globulin Ratio 0.7 (1.0-2.7) L Current Medications Medications (Trade) Dose Ordered Sig/Jonathan Route PRN Reason Start Time Stop Time Status Last Admin Dose Admin Acetaminophen (Tylenol) 650 mg Q4H PRN ORAL MILD PAIN AND FEVER 10/09/19 23:00 11/08/19 22:59 Docusate Sodium (Colace) 100 mg THREE TIMES A DAY ORAL 10/10/19 13:00 11/09/19 12:59 10/11/19 18:18 Fluconazole (Diflucan) 200 mg DAILY ORAL 10/12/19 12:45 10/19/19 12:44 10/14/19 08:45 Morphine Sulfate (Morphine Sulfate) 2 mg EVERY 6 HOURS PRN IVP Severe Pain (Pain Scale 7-10) 10/09/19 23:00 10/16/19 22:59 10/12/19 03:44 Ondansetron HCl (Zofran) 4 mg Q6H PRN IVP Nausea & Vomiting 10/09/19 23:00 11/08/19 22:59 Pantoprazole (Protonix) 40 mg EVERY 12 HOURS ORAL 10/10/19 12:00 11/09/19 11:59 10/14/19 08:45 Potassium Chloride (K-Dur) 40 meq DAILY ORAL 10/11/19 12:00 01/09/20 11:59 10/14/19 08:45 Gigi Kim MD Oct 14, 2019 14:58
--- NOTE | 2019-10-14 15:13 | Surgery Progress Note ---
Surgery Progress Note Subjective Additional Comments labs imrpoved exam improved no n/v//fc push po cont current care Objective Last 24 Hour Vital Signs Date Time Temp Pulse Resp B/P (MAP) Pulse Ox O2 Delivery O2 Flow Rate FiO2 10/14/19 12:00 98.1 59 19 145/78 (100) 97 10/14/19 08:54 Room Air 10/14/19 08:00 97.8 60 18 113/70 (84) 98 10/14/19 04:00 97.3 64 20 120/73 (89) 95 10/14/19 00:00 97.3 61 16 101/61 (74) 93 10/13/19 21:00 Room Air 10/13/19 20:00 97.9 63 14 93/52 (66) 92 10/13/19 16:00 97.7 63 18 106/58 (74) 95 I&O Intake and Output 10/13/19 10/14/19 19:00 07:00 Intake Total 930 ml 1260 ml Output Total 1300 ml Balance 930 ml -40 ml Intake Oral 480 ml 360 ml IV Total 450 ml 900 ml Output Urine Total 1300 ml Dressing: saturated Wound: clean Cardiovascular: RSR Respiratory: decreased breath sounds Abdomen: soft, non-tender, present bowel sounds Extremities: no cyanosis Laboratory Tests Test 10/14/19 07:58 White Blood Count 10.0 K/UL (4.8-10.8) Red Blood Count 4.68 M/UL (4.70-6.10) L Hemoglobin 13.6 G/DL (14.2-18.0) L Hematocrit 39.1 % (42.0-52.0) L Mean Corpuscular Volume 84 FL (80-99) Mean Corpuscular Hemoglobin 29.1 PG (27.0-31.0) Mean Corpuscular Hemoglobin Concent 34.8 G/DL (32.0-36.0) Red Cell Distribution Width 12.0 % (11.6-14.8) Platelet Count 247 K/UL (150-450) Mean Platelet Volume 6.1 FL (6.5-10.1) L Neutrophils (%) (Auto) 74.0 % (45.0-75.0) Lymphocytes (%) (Auto) 13.9 % (20.0-45.0) L Monocytes (%) (Auto) 7.3 % (1.0-10.0) Eosinophils (%) (Auto) 4.3 % (0.0-3.0) H Basophils (%) (Auto) 0.5 % (0.0-2.0) Sodium Level 141 MMOL/L (136-145) Potassium Level 4.0 MMOL/L (3.5-5.1) Chloride Level 105 MMOL/L (98-107) Carbon Dioxide Level 25 MMOL/L (21-32) Anion Gap 11 mmol/L (5-15) Blood Urea Nitrogen 14 mg/dL (7-18) Creatinine 0.6 MG/DL (0.55-1.30) Estimat Glomerular Filtration Rate > 60 mL/min (>60) Glucose Level 107 MG/DL (74-106) H Calcium Level 9.0 MG/DL (8.5-10.1) Total Bilirubin 0.5 MG/DL (0.2-1.0) Aspartate Amino Transf (AST/SGOT) 21 U/L (15-37) Alanine Aminotransferase (ALT/SGPT) 28 U/L (12-78) Alkaline Phosphatase 83 U/L (46-116) Total Protein 7.2 G/DL (6.4-8.2) Albumin 3.0 G/DL (3.4-5.0) L Globulin 4.2 g/dL Albumin/Globulin Ratio 0.7 (1.0-2.7) L Plan Problems: (1) Constipation (2) Decubitus skin ulcer (3) Abdominal pain Assessment & Plan: feeling better pain cramping abd exam benign wants food okay for diet trend labs abx as per id will follow with serial exams no acute surgical intervention planned The appendix is not definitely demonstrated, but no findings to suggest acute appendicitis are evident. There is no evidence of colonic diverticulosis or diverticulitis. No small bowel distention. No free or loculated intraperitoneal gas or fluid is evident. The distal esophagus, stomach, duodenum are unremarkable. There is a equivocal wall thickening of the distal rectum. Lack of IV contrast limits assessment of the solid organs. The liver demonstrates a cyst in the dome of segment 8. It demonstrates other scattered subcentimeter low-attenuation lesions which are too small to characterize the gallbladder, bile ducts, pancreas, spleen, adrenals, kidneys are all unremarkable. No retroperitoneal or mesenteric mass or adenopathy. There are prominent iliac chain nodes, largest a left external iliac node measuring 2.4 x 1.2 cm in diameter. The bladder is empty, contains a suprapubic catheter which appears to be well positioned. There is thickening of the retrococcygeal fat and evidence of some chronic appearing destructive changes of the coccyx. No evidence of ulceration. There is infiltration of the subcutaneous fat of the bilateral buttocks. Degenerative changes of the bilateral hips are noted. Dystrophic calcifications are seen in the left hip region. There is a complex calcified density in the right upper buttock region subcutaneous fat. There is chronic appearing distortion of the sacrum and there is thoracolumbar smooth dextro scoliotic deformity, may in part be an artifact of positioning. The included lung bases demonstrate a slight degree of mosaic perfusion at the left lung base. There is some atelectasis of the inferior lingula. Impression: Equivocal wall thickening of the distal rectum, if real could indicate proctitis or less likely mass lesion. Correlate with clinical findings. Pelvic adenopathy, could be reactive or neoplastic. This finding was phoned to Dr. Bond at the time of interpretation Empty bladder with a suprapubic catheter in good position Evidence of retrococcygeal decubitus changes and chronic erosive changes of the coccyx. No evidence of ulceration Right lobe liver cyst and subcentimeter low-attenuation liver lesions which are too small to characterize, most likely benign simple cysts Complex calcified density in the right upper buttock region is probably a large injection granuloma DAILY ESTIMATED NEEDS: Needs based on Wounds, paraplegia 71kg 25-30 kcals/kg 9861-2785 total kcals 1.25-1.5 g protein/kg 89-107 g total protein 25-30 mL/kg 1790-0037 total fluid mLs NUTRITION DIAGNOSIS: Increased kcal and pro needs r/t wound healing as evidenced by full thickness wound R buttocks. CURRENT DIET: Regular PO DIET RECOMMENDATIONS: maintain Regular diet as tolerated ADDITIONAL RECOMMENDATIONS: 1) Add Ensure Enlive qdaily 2) wound care: add KYLIE BID + Vit C 250mg BID + MVI w/ min qdaily 3) Obtain a calibrated bed scale wt (4) Catheter-associated urinary tract infection Mohinder Deras Oct 14, 2019 15:13
[2019-10-14 16:09] VITALS: BP 135/82
--- NOTE | 2019-10-14 19:18 | NUR ---
HAND-OFF: Report given to Minsu.
--- NOTE | 2019-10-14 19:20 | NUR ---
NURSE NOTES: Patient a/a/o x 4. Breathing unlabored on room air without distress. Denies pain or discomfort at this time. IV noted on right antecubital intact and saline locked. Suprapubic cath intact and draining urine to gravity. Encouraged patient to place a medellin anchor to secure the line but patient refused at this time. Bed placed at the lowest with alarm, brake, and siderails up for safety. Call light placed within reach. Will continue to monitor.
[2019-10-14 20:00] VITALS: BP 94/55
--- NOTE | 2019-10-14 20:35 | General Progress Note ---
Assessment/Plan Problem List: (1) Constipation ICD Codes: K59.00 - Constipation, unspecified SNOMED: 98290908 (2) Catheter-associated urinary tract infection ICD Codes: T83.511A - Infection and inflammatory reaction due to indwelling urethral catheter, initial encounter; N39.0 - Urinary tract infection, site not specified SNOMED: 139453709 (3) Dehydration ICD Codes: E86.0 - Dehydration SNOMED: 16546231 Status: progressing Assessment/Plan: uti catheter related afebrile leukocyotsis improving Subjective ROS Limited/Unobtainable: Yes Allergies: Coded Allergies: IODINE AND IODIDE CONTAINING PRODUC (Unverified Allergy, Unknown, 10/09/19) SHELLFISH DERIVED (Unverified Allergy, Unknown, 10/09/19) Objective Last 24 Hour Vital Signs Date Time Temp Pulse Resp B/P (MAP) Pulse Ox O2 Delivery O2 Flow Rate FiO2 10/14/19 20:00 98.4 71 24 94/55 (68) 97 10/14/19 16:09 98.2 58 19 135/82 (99) 98 10/14/19 12:00 98.1 59 19 145/78 (100) 97 10/14/19 08:54 Room Air 10/14/19 08:00 97.8 60 18 113/70 (84) 98 10/14/19 04:00 97.3 64 20 120/73 (89) 95 10/14/19 00:00 97.3 61 16 101/61 (74) 93 10/13/19 21:00 Room Air Intake and Output 10/13/19 10/14/19 19:00 07:00 Intake Total 930 ml 1260 ml Output Total 1300 ml Balance 930 ml -40 ml Intake Oral 480 ml 360 ml IV Total 450 ml 900 ml Output Urine Total 1300 ml Laboratory Tests 10/14/19 07:58: White Blood Count 10.0, Red Blood Count 4.68L, Hemoglobin 13.6L, Hematocrit 39.1L, Mean Corpuscular Volume 84, Mean Corpuscular Hemoglobin 29.1, Mean Corpuscular Hemoglobin Concent 34.8, Red Cell Distribution Width 12.0, Platelet Count 247, Mean Platelet Volume 6.1L, Neutrophils (%) (Auto) 74.0, Lymphocytes ( %) (Auto) 13.9L, Monocytes (%) (Auto) 7.3, Eosinophils (%) (Auto) 4.3H, Basophils (%) (Auto) 0.5, Sodium Level 141, Potassium Level 4.0, Chloride Level 105, Carbon Dioxide Level 25, Anion Gap 11, Blood Urea Nitrogen 14, Creatinine 0.6, Estimat Glomerular Filtration Rate > 60, Glucose Level 107H, Calcium Level 9.0, Total Bilirubin 0.5, Aspartate Amino Transf (AST/SGOT) 21, Alanine Aminotransferase (ALT/SGPT) 28, Alkaline Phosphatase 83, Total Protein 7.2, Albumin 3.0L, Globulin 4.2, Albumin/Globulin Ratio 0.7L Height (Feet): 5 Height (Inches): 9.00 Weight (Pounds): 80 Jeffery Patino MD Oct 14, 2019 20:34
--- NOTE | 2019-10-14 21:50 | NUR ---
NURSE NOTES: Encouraged patient on changing the IV site and placing new IV but patient refused. Patient said he should be going home tomorrow and there is no need for new IV insertion at this time. Will continue to monitor and provide other care as ordered.
--- NOTE | 2019-10-14 22:30 | NUR ---
NURSE NOTES: offered dressing change on the sacral but patient refused at this time. Will attempt again.
[2019-10-15] VITALS: BP 94/57
[2019-10-15 04:00] VITALS: BP 131/68
--- NOTE | 2019-10-15 07:58 | NUR ---
HAND-OFF: Report given to ROSALBA Gupta. Plan of care endorsed.
[2019-10-15 08:00] VITALS: BP 114/64
--- NOTE | 2019-10-15 08:19 | NUR ---
NURSE NOTES: Patient is awake and alert and oriented,respirations unlabored.Patient supra pubic catheter in place and draining clear mo color urine.patient breakfast at bedside but not ready to eat.Bed alarm is on,call light within reach.
--- NOTE | 2019-10-15 09:36 | General Progress Note ---
Assessment/Plan Status: progressing Assessment/Plan: Assessment/Plan Assessment/Plan: Assessment - Abd pain, resolved - UTI - S/p sp catheter - quadriplegia Recommendations - push po - abx per ID -on fluconazole for fungal UTI -checl LFTS - no plans for GI w/u -recent labs and notes reviewed Subjective ROS Limited/Unobtainable: No Allergies: Coded Allergies: IODINE AND IODIDE CONTAINING PRODUC (Unverified Allergy, Unknown, 10/09/19) SHELLFISH DERIVED (Unverified Allergy, Unknown, 10/09/19) Objective Last 24 Hour Vital Signs Date Time Temp Pulse Resp B/P (MAP) Pulse Ox O2 Delivery O2 Flow Rate FiO2 10/15/19 04:00 97.5 68 22 131/68 (89) 96 10/15/19 00:00 97.9 87 20 94/57 (69) 96 10/14/19 21:00 Room Air 10/14/19 20:00 98.4 71 24 94/55 (68) 97 10/14/19 16:09 98.2 58 19 135/82 (99) 98 10/14/19 12:00 98.1 59 19 145/78 (100) 97 Intake and Output 10/14/19 10/15/19 19:00 07:00 Intake Total 735 ml 120 ml Output Total 1400 ml 800 ml Balance -665 ml -680 ml Intake Oral 360 ml 120 ml IV Total 375 ml Output Urine Total 1400 ml 800 ml Height (Feet): 5 Height (Inches): 9.00 Weight (Pounds): 80 General Appearance: no apparent distress EENT: normal ENT inspection Neck: supple Cardiovascular: normal rate Respiratory/Chest: decreased breath sounds Abdomen: normal bowel sounds, non tender, soft Extremities: non-tender Terrence Markham MD Oct 15, 2019 09:36
[2019-10-15] MEDS: Docusate 100mg cap ORAL SCH ×3 (09:50→17:56)
[2019-10-15 09:57] VITALS: BP 114/64
[2019-10-15 10:04] LABS: BASOPHILS % (AUTO) 0.7 % (0.0-2.0); EOSINOPHILS % (AUTO) 4.1 % (0.0-3.0); HEMATOCRIT 40.7 % (42.0-52.0); HEMOGLOBIN 14.1 G/DL (14.2-18.0); LYMPHOCYTES % (AUTO) 13.1 % (20.0-45.0); MEAN CORPUSCULAR VOLUME 84 FL (80-99); MONOCYTES % (AUTO) 5.7 % (1.0-10.0); NEUTROPHILS % (AUTO) 76.4 % (45.0-75.0); PLATELET COUNT 247 K/UL (150-450); RED BLOOD COUNT 4.85 M/UL (4.70-6.10); RED CELL DISTRIBUTION WIDTH 12.1 % (11.6-14.8); WHITE BLOOD COUNT 10.4 K/UL (4.8-10.8)
[2019-10-15 10:16] LABS: ALANINE AMINOTRANSFERASE 17 U/L (12-78); ALBUMIN/GLOBULIN RATIO 0.7 (1.0-2.7); ALKALINE PHOSPHATASE 90 U/L (46-116); ANION GAP 11 mmol/L (5-15); ASPARTATE AMINO TRANSFERASE 19 U/L (15-37); BILIRUBIN,TOTAL 0.3 MG/DL (0.2-1.0); BLOOD UREA NITROGEN 20 mg/dL (7-18); CALCIUM 9.1 MG/DL (8.5-10.1); CARBON DIOXIDE 23 MMOL/L (21-32); CHLORIDE 106 MMOL/L (98-107); CREATININE 0.9 MG/DL (0.55-1.30); POTASSIUM 4.2 MMOL/L (3.5-5.1); SODIUM 140 MMOL/L (136-145)
[2019-10-15 12:00] VITALS: BP 101/62
--- NOTE | 2019-10-15 12:17 | Surgery Progress Note ---
Surgery Progress Note Subjective Additional Comments labs stable exam stable no acute events no DVT comfortable Objective Last 24 Hour Vital Signs Date Time Temp Pulse Resp B/P (MAP) Pulse Ox O2 Delivery O2 Flow Rate FiO2 10/15/19 09:57 97.7 77 18 114/64 (81) 100 10/15/19 09:55 Room Air 10/15/19 08:00 97.7 77 18 114/64 (81) 100 10/15/19 04:00 97.5 68 22 131/68 (89) 96 10/15/19 00:00 97.9 87 20 94/57 (69) 96 10/14/19 21:00 Room Air 10/14/19 20:00 98.4 71 24 94/55 (68) 97 10/14/19 16:09 98.2 58 19 135/82 (99) 98 I&O Intake and Output 10/14/19 10/15/19 19:00 07:00 Intake Total 735 ml 120 ml Output Total 1400 ml 800 ml Balance -665 ml -680 ml Intake Oral 360 ml 120 ml IV Total 375 ml Output Urine Total 1400 ml 800 ml Dressing: other Wound: other Drains: other Cardiovascular: RSR Respiratory: decreased breath sounds Abdomen: soft, non-tender, present bowel sounds Extremities: no tenderness, no cyanosis Laboratory Tests Test 10/15/19 09:30 White Blood Count 10.4 K/UL (4.8-10.8) Red Blood Count 4.85 M/UL (4.70-6.10) Hemoglobin 14.1 G/DL (14.2-18.0) L Hematocrit 40.7 % (42.0-52.0) L Mean Corpuscular Volume 84 FL (80-99) Mean Corpuscular Hemoglobin 29.1 PG (27.0-31.0) Mean Corpuscular Hemoglobin Concent 34.7 G/DL (32.0-36.0) Red Cell Distribution Width 12.1 % (11.6-14.8) Platelet Count 247 K/UL (150-450) Mean Platelet Volume 6.2 FL (6.5-10.1) L Neutrophils (%) (Auto) 76.4 % (45.0-75.0) H Lymphocytes (%) (Auto) 13.1 % (20.0-45.0) L Monocytes (%) (Auto) 5.7 % (1.0-10.0) Eosinophils (%) (Auto) 4.1 % (0.0-3.0) H Basophils (%) (Auto) 0.7 % (0.0-2.0) Sodium Level 140 MMOL/L (136-145) Potassium Level 4.2 MMOL/L (3.5-5.1) Chloride Level 106 MMOL/L (98-107) Carbon Dioxide Level 23 MMOL/L (21-32) Anion Gap 11 mmol/L (5-15) Blood Urea Nitrogen 20 mg/dL (7-18) H Creatinine 0.9 MG/DL (0.55-1.30) Estimat Glomerular Filtration Rate > 60 mL/min (>60) Glucose Level 141 MG/DL (74-106) H Calcium Level 9.1 MG/DL (8.5-10.1) Total Bilirubin 0.3 MG/DL (0.2-1.0) Aspartate Amino Transf (AST/SGOT) 19 U/L (15-37) Alanine Aminotransferase (ALT/SGPT) 17 U/L (12-78) Alkaline Phosphatase 90 U/L (46-116) Total Protein 7.3 G/DL (6.4-8.2) Albumin 3.0 G/DL (3.4-5.0) L Globulin 4.3 g/dL Albumin/Globulin Ratio 0.7 (1.0-2.7) L Plan Problems: (1) Constipation (2) Decubitus skin ulcer (3) Abdominal pain Assessment & Plan: feeling better pain cramping abd exam benign wants food okay for diet trend labs abx as per id will follow with serial exams no acute surgical intervention planned The appendix is not definitely demonstrated, but no findings to suggest acute appendicitis are evident. There is no evidence of colonic diverticulosis or diverticulitis. No small bowel distention. No free or loculated intraperitoneal gas or fluid is evident. The distal esophagus, stomach, duodenum are unremarkable. There is a equivocal wall thickening of the distal rectum. Lack of IV contrast limits assessment of the solid organs. The liver demonstrates a cyst in the dome of segment 8. It demonstrates other scattered subcentimeter low-attenuation lesions which are too small to characterize the gallbladder, bile ducts, pancreas, spleen, adrenals, kidneys are all unremarkable. No retroperitoneal or mesenteric mass or adenopathy. There are prominent iliac chain nodes, largest a left external iliac node measuring 2.4 x 1.2 cm in diameter. The bladder is empty, contains a suprapubic catheter which appears to be well positioned. There is thickening of the retrococcygeal fat and evidence of some chronic appearing destructive changes of the coccyx. No evidence of ulceration. There is infiltration of the subcutaneous fat of the bilateral buttocks. Degenerative changes of the bilateral hips are noted. Dystrophic calcifications are seen in the left hip region. There is a complex calcified density in the right upper buttock region subcutaneous fat. There is chronic appearing distortion of the sacrum and there is thoracolumbar smooth dextro scoliotic deformity, may in part be an artifact of positioning. The included lung bases demonstrate a slight degree of mosaic perfusion at the left lung base. There is some atelectasis of the inferior lingula. Impression: Equivocal wall thickening of the distal rectum, if real could indicate proctitis or less likely mass lesion. Correlate with clinical findings. Pelvic adenopathy, could be reactive or neoplastic. This finding was phoned to Dr. Bond at the time of interpretation Empty bladder with a suprapubic catheter in good position Evidence of retrococcygeal decubitus changes and chronic erosive changes of the coccyx. No evidence of ulceration Right lobe liver cyst and subcentimeter low-attenuation liver lesions which are too small to characterize, most likely benign simple cysts Complex calcified density in the right upper buttock region is probably a large injection granuloma DAILY ESTIMATED NEEDS: Needs based on Wounds, paraplegia 71kg 25-30 kcals/kg 0725-0671 total kcals 1.25-1.5 g protein/kg 89-107 g total protein 25-30 mL/kg 0362-8003 total fluid mLs NUTRITION DIAGNOSIS: Increased kcal and pro needs r/t wound healing as evidenced by full thickness wound R buttocks. CURRENT DIET: Regular PO DIET RECOMMENDATIONS: maintain Regular diet as tolerated ADDITIONAL RECOMMENDATIONS: 1) Add Ensure Enlive qdaily 2) wound care: add KYLIE BID + Vit C 250mg BID + MVI w/ min qdaily 3) Obtain a calibrated bed scale wt (4) Catheter-associated urinary tract infection Mohinder Deras Oct 15, 2019 12:17
--- NOTE | 2019-10-15 12:27 | Infectious Diseases Prog Note ---
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 RECOMMENDATION: can be discharged with PO Itraconazole X 7 days Subjective ROS Limited/Unobtainable: No Respiratory: Reports: no symptoms Cardiovascular: Reports: no symptoms Gastrointestinal/Abdominal: Reports: no symptoms Genitourinary: Reports: no symptoms Allergies: Coded Allergies: IODINE AND IODIDE CONTAINING PRODUC (Unverified Allergy, Unknown, 10/09/19) SHELLFISH DERIVED (Unverified Allergy, Unknown, 10/09/19) Objective Vital Signs Last 24 Hour Vital Signs Date Time Temp Pulse Resp B/P (MAP) Pulse Ox O2 Delivery O2 Flow Rate FiO2 10/15/19 09:57 97.7 77 18 114/64 (81) 100 10/15/19 09:55 Room Air 10/15/19 08:00 97.7 77 18 114/64 (81) 100 10/15/19 04:00 97.5 68 22 131/68 (89) 96 10/15/19 00:00 97.9 87 20 94/57 (69) 96 10/14/19 21:00 Room Air 10/14/19 20:00 98.4 71 24 94/55 (68) 97 10/14/19 16:09 98.2 58 19 135/82 (99) 98 Height (Feet): 5 Height (Inches): 9.00 Weight (Pounds): 80 HEENT: mucous membranes moist Respiratory/Chest: lungs clear Cardiovascular: normal rate Abdomen: soft, non tender Genitourinary: other - suprapubic catheter Extremities: no edema, other - contracted legs Skin: ulcers Neurologic/Psychiatric: alert, oriented x 3, responsive Laboratory Tests Test 10/15/19 09:30 White Blood Count 10.4 K/UL (4.8-10.8) Red Blood Count 4.85 M/UL (4.70-6.10) Hemoglobin 14.1 G/DL (14.2-18.0) L Hematocrit 40.7 % (42.0-52.0) L Mean Corpuscular Volume 84 FL (80-99) Mean Corpuscular Hemoglobin 29.1 PG (27.0-31.0) Mean Corpuscular Hemoglobin Concent 34.7 G/DL (32.0-36.0) Red Cell Distribution Width 12.1 % (11.6-14.8) Platelet Count 247 K/UL (150-450) Mean Platelet Volume 6.2 FL (6.5-10.1) L Neutrophils (%) (Auto) 76.4 % (45.0-75.0) H Lymphocytes (%) (Auto) 13.1 % (20.0-45.0) L Monocytes (%) (Auto) 5.7 % (1.0-10.0) Eosinophils (%) (Auto) 4.1 % (0.0-3.0) H Basophils (%) (Auto) 0.7 % (0.0-2.0) Sodium Level 140 MMOL/L (136-145) Potassium Level 4.2 MMOL/L (3.5-5.1) Chloride Level 106 MMOL/L (98-107) Carbon Dioxide Level 23 MMOL/L (21-32) Anion Gap 11 mmol/L (5-15) Blood Urea Nitrogen 20 mg/dL (7-18) H Creatinine 0.9 MG/DL (0.55-1.30) Estimat Glomerular Filtration Rate > 60 mL/min (>60) Glucose Level 141 MG/DL (74-106) H Calcium Level 9.1 MG/DL (8.5-10.1) Total Bilirubin 0.3 MG/DL (0.2-1.0) Aspartate Amino Transf (AST/SGOT) 19 U/L (15-37) Alanine Aminotransferase (ALT/SGPT) 17 U/L (12-78) Alkaline Phosphatase 90 U/L (46-116) Total Protein 7.3 G/DL (6.4-8.2) Albumin 3.0 G/DL (3.4-5.0) L Globulin 4.3 g/dL Albumin/Globulin Ratio 0.7 (1.0-2.7) L Current Medications Medications (Trade) Dose Ordered Sig/Jonathan Route PRN Reason Start Time Stop Time Status Last Admin Dose Admin Acetaminophen (Tylenol) 650 mg Q4H PRN ORAL MILD PAIN AND FEVER 10/09/19 23:00 11/08/19 22:59 Docusate Sodium (Colace) 100 mg THREE TIMES A DAY ORAL 10/10/19 13:00 11/09/19 12:59 10/15/19 09:50 Itraconazole (Sporanox) 200 mg Q12HR ORAL 10/14/19 18:00 10/21/19 17:59 10/15/19 09:52 Morphine Sulfate (Morphine Sulfate) 2 mg EVERY 6 HOURS PRN IVP Severe Pain (Pain Scale 7-10) 10/09/19 23:00 10/16/19 22:59 10/12/19 03:44 Ondansetron HCl (Zofran) 4 mg Q6H PRN IVP Nausea & Vomiting 10/09/19 23:00 11/08/19 22:59 Pantoprazole (Protonix) 40 mg EVERY 12 HOURS ORAL 10/10/19 12:00 11/09/19 11:59 10/15/19 09:51 Potassium Chloride (K-Dur) 40 meq DAILY ORAL 10/11/19 12:00 01/09/20 11:59 10/15/19 09:51 Gigi Kim MD Oct 15, 2019 12:27
--- NOTE | 2019-10-15 12:29 | Nephrology Progress Note ---
Assessment/Plan Problem List: (1) Electrolyte imbalance (2) Catheter-associated urinary tract infection (3) Dehydration (4) Severe malnutrition Assessment UTI Suprapubic catheter Quadriplegia Dehydration Plan Today's labs checked Potassium supplement as needed Monitor electrolytes Stop hydrate Antibiotics Per orders Stable from renal standpoint of view Subjective ROS Limited/Unobtainable: No Constitutional: Reports: malaise Objective Objective Last 24 Hour Vital Signs Date Time Temp Pulse Resp B/P (MAP) Pulse Ox O2 Delivery O2 Flow Rate FiO2 10/15/19 09:57 97.7 77 18 114/64 (81) 100 10/15/19 09:55 Room Air 10/15/19 08:00 97.7 77 18 114/64 (81) 100 10/15/19 04:00 97.5 68 22 131/68 (89) 96 10/15/19 00:00 97.9 87 20 94/57 (69) 96 10/14/19 21:00 Room Air 10/14/19 20:00 98.4 71 24 94/55 (68) 97 10/14/19 16:09 98.2 58 19 135/82 (99) 98 Intake and Output 10/14/19 10/15/19 19:00 07:00 Intake Total 735 ml 120 ml Output Total 1400 ml 800 ml Balance -665 ml -680 ml Intake Oral 360 ml 120 ml IV Total 375 ml Output Urine Total 1400 ml 800 ml Laboratory Tests 10/15/19 09:30: White Blood Count 10.4, Red Blood Count 4.85, Hemoglobin 14.1L, Hematocrit 40.7L , Mean Corpuscular Volume 84, Mean Corpuscular Hemoglobin 29.1, Mean Corpuscular Hemoglobin Concent 34.7, Red Cell Distribution Width 12.1, Platelet Count 247, Mean Platelet Volume 6.2L, Neutrophils (%) (Auto) 76.4H, Lymphocytes (%) (Auto) 13.1L, Monocytes (%) (Auto) 5.7, Eosinophils (%) (Auto) 4.1H, Basophils (%) (Auto) 0.7, Sodium Level 140, Potassium Level 4.2, Chloride Level 106, Carbon Dioxide Level 23, Anion Gap 11, Blood Urea Nitrogen 20H, Creatinine 0.9, Estimat Glomerular Filtration Rate > 60, Glucose Level 141H, Calcium Level 9.1, Total Bilirubin 0.3, Aspartate Amino Transf (AST/SGOT) 19, Alanine Aminotransferase (ALT/SGPT) 17, Alkaline Phosphatase 90, Total Protein 7.3, Albumin 3.0L, Globulin 4.3, Albumin/Globulin Ratio 0.7L Height (Feet): 5 Height (Inches): 9.00 Weight (Pounds): 80 General Appearance: no apparent distress Objective No change Abdulaziz Carrasco MD Oct 15, 2019 12:29
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
[2019-10-15 16:00] VITALS: BP 101/62
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
--- NOTE | 2019-10-15 18:17 | NUR ---
NURSE NOTES: Patient discharge patient has discharged prescription filled by out patient pharmacy.IV removed,ID hospital b and removed.patient has all personal belongings/wheel chair/patient state he has a place to go to ,he has friends that he will get in contact with them.Patient was provided with a Tap card to get on the bus.patient accompany down to lobby.picture was taken of lower extremities but patient refused picture of sacral are patient state he is fine.Patient provided with leg drainage ag for the supra pubic catheter.
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
== END 2019-10-15 18:27 | disposition home or self-care (01) | DRG 466 ==
LOC: EDBD 17:54 → EMR 18:30 → 4E 19:54 → EDBEDREQ 21:36 → 4E 10-13 09:03
DX: T83.510A Infection and inflammatory reaction due to cystostomy catheter, initial encounter (principal); E43 Unspecified severe protein-calorie malnutrition; G82.20 Paraplegia, unspecified; L89.313 Pressure ulcer of right buttock, stage 3; Y84.6 Urinary catheterization as the cause of abnormal reaction of the patient, or of later complication, without mention of misadventure at the time of the procedure; L89.893 Pressure ulcer of other site, stage 3; R62.7 Adult failure to thrive; Z68.1 Body mass index [BMI] 19.9 or less, adult; Z91.041 Radiographic dye allergy status; Z91.013 Allergy to seafood; N30.90 Cystitis, unspecified without hematuria; B37.41 Candidal cystitis and urethritis; K59.00 Constipation, unspecified; E86.0 Dehydration; Z59.0 Homelessness; V89.2XXS Person injured in unspecified motor-vehicle accident, traffic, sequela; E87.8 Other disorders of electrolyte and fluid balance, not elsewhere classified
CPT/HCPCS: 36415; 74176; 80053; 80307; 81003; 82378; 82728; 82977; 83605; 83690; 83735; 83880; 84100; 84550; 85025; 85610; 85730; 86140; 87081; 87086; 93970; 96361; 96365; 96375; 99285; J2405; J7030; J8499

== ENCOUNTER 2020-05-12 15:57 | Inpatient (IN) | payer MEDICAID, OTHER ==
[~2020-05-12] VITALS: Ht 177.8 cm; Wt 66.2 kg
[2020-05-12 16:15] VITALS: BP 120/65
--- NOTE | 2020-05-12 16:20 | NUR ---
ED Nurse Note: Pt came in to ED by wheelchair for c/o RLQ pain 10/10 for 4 days. Pt has suprapubic catheter and states he has milky odorous urine. He states suprapubic catheter was placed 2 weeks ago. Output is cloudy and yellow and 300 mL. He is paraplegic. Pt is alert and orientedx4.
[2020-05-12 17:33] LABS: APPEARANCE,URINE CLOUDY; BILIRUBIN, URINE NEGATIVE (NEGATIVE); GLUCOSE, URINE (UA) NEGATIVE (NEGATIVE); KETONES,URINE 1+ (NEGATIVE); LEUKOCYTE ESTERASE ,URINE 2+ (NEGATIVE); NITRITE,URINE POSITIVE (NEGATIVE); PH,URINE 5 (4.5-8.0); PROTEIN,URINE 2+ (NEGATIVE); UROBILINOGEN,URINE NORMAL MG/DL (0.0-1.0)
[2020-05-12 18:02] LABS: ALANINE AMINOTRANSFERASE 18 U/L (12-78); ALBUMIN 3.4 G/DL (3.4-5.0); ALBUMIN/GLOBULIN RATIO 0.9 (1.0-2.7); ALKALINE PHOSPHATASE 98 U/L (46-116); ANION GAP 8 mmol/L (5-15); ASPARTATE AMINO TRANSFERASE 20 U/L (15-37); BILIRUBIN,TOTAL 0.4 MG/DL (0.2-1.0); BLOOD UREA NITROGEN 30 mg/dL (7-18); CALCIUM 8.8 MG/DL (8.5-10.1); CARBON DIOXIDE 26 MMOL/L (21-32); CHLORIDE 110 MMOL/L (98-107); CREATININE 0.8 MG/DL (0.55-1.30); SODIUM 144 MMOL/L (136-145)
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
[2020-05-12 18:04] LABS: BASOPHILS % (AUTO) 0.7 % (0.0-2.0); EOSINOPHILS % (AUTO) 2.9 % (0.0-3.0); HEMATOCRIT 39.8 % (42.0-52.0); HEMOGLOBIN 13.6 G/DL (14.2-18.0); LYMPHOCYTES % (AUTO) 13.1 % (20.0-45.0); MEAN CORPUSCULAR VOLUME 88 FL (80-99); MONOCYTES % (AUTO) 8.2 % (1.0-10.0); NEUTROPHILS % (AUTO) 75.1 % (45.0-75.0); PLATELET COUNT 177 K/UL (150-450); RED BLOOD COUNT 4.53 M/UL (4.70-6.10); RED CELL DISTRIBUTION WIDTH 13.4 % (11.6-14.8)
[2020-05-12 18:17] LABS: COLOR,URINE YELLOW
[2020-05-12 18:59] VITALS: BP 115/74
--- NOTE | 2020-05-12 19:30 | NUR ---
ED Nurse Note: Pt resting in bed with eyes closed, non-labored breathing, no signs of distress, vwill continue to monitor
[2020-05-12] MEDS ORDERED: Aztreonam Inj 1 GM in NS 55 ML IVPB ONE (20:45)
[2020-05-12 21:00] VITALS: BP 123/70
--- NOTE | 2020-05-12 21:30 | NUR ---
ED Nurse Note: IV antibiotics running per order, pt tolerating well. will continue to monitor
[2020-05-12] MEDS ORDERED: CefTAZidime 1 GM in D5W 55 ML IV SCH (22:00)
--- NOTE | 2020-05-12 23:00 | NUR ---
TRANSFER TO FLOOR: Patient transferred to as ordered, per Dr hopson. Report given to ROSALBA Marcelo. Belongings and medications given to . Family and or S/O informed of transfer.
--- NOTE | 2020-05-12 23:07 | NUR ---
NURSE NOTES: Received patient from Aranza NAVARRETE at ER. The patient is alert and oriented x4 and does not seem to be in any distress at this time.He is room air with Respiration even and unlabored.The patient is paraplegic from waist down and came with a suprapubic catheter noted with Cloudy urine on the drainage bag.The patient refused body assessment at this time but said his body is intact that he has no pressure sore, no open wound on his body. According to the patient he is very cold and will prefer skin abasement in the morning when he wakes up. The patient has a Right fore arm 20g saline log that is intact and asymptomatic. The bed in low level and locked. Siderail up x2 and the call light within easy reach. Will continue to monitor as indicated.
[2020-05-12] MEDS ORDERED: Acetaminophen 500mg (ES) tab ORAL PRN (23:30)
--- NOTE | 2020-05-12 23:30 | NUR ---
NURSE NOTES: Received admission order from Dr. Patino, all orders executed as indicated. Will continue to monitor
[2020-05-13] VITALS: BP 139/70
[2020-05-13 04:00] VITALS: BP 130/74
--- NOTE | 2020-05-13 05:45 | NUR ---
NURSE NOTES: The patient remained alert and oriented x4.When asked to complete a full body assessment, He said not yet and requested his assessment to be done in the morning. He was able to sleep all night long. Will continue to monitor
--- NOTE | 2020-05-13 07:15 | NUR ---
NURSE HAND-OFF: Important Events on Shift:Refused full body assesment that he is feeling cold and want it done in the morning Patient Status: Diet: Pending Orders: Pending Results/Labs: Pending MD notification: Latest Vital Signs: Temperature 98.4 , Pulse 67 , B/P 130 /74 , Respiratory Rate 20 , O2 SAT 99 , Room Air, O2 Flow Rate . Vital Sign Comment: Latest Anton Fall Score: 35 Fall Risk: Medium Risk Safety Measures: Call light Within Reach, Bed Alarm Zone 2, Side Rails Side Rails x2, Bed position Low and Locked. Fall Precautions: Yellow Socks Yellow Gown Door Sign Patient Fall Education Report given to .
[2020-05-13 08:00] VITALS: BP 133/71
--- NOTE | 2020-05-13 08:00 | NUR ---
NURSE NOTES: Patient awake and alert and oriented,respirations unlabored.Supra pubic catheter is in act and mo color urine noted.saline lock in the right arm intact.Bereakfast at bedside. Bed alarm on,call light within reach.
--- NOTE | 2020-05-13 08:58 | Consultation ---
History of Present Illness General Date patient seen: May 13, 2020 Chief Complaint: Present Illness Allergies: Coded Allergies: IODINE AND IODIDE CONTAINING PRODUC (Unverified Allergy, Unknown, 10/09/19) SHELLFISH DERIVED (Unverified Allergy, Unknown, 10/09/19) Medication History No Active Prescriptions or Reported Meds Patient History Healthcare decision maker Resuscitation status Advanced Directive on File Physical Exam Last 24 Hour Vital Signs Date Time Temp Pulse Resp B/P (MAP) Pulse Ox O2 Delivery O2 Flow Rate FiO2 05/13/20 04:00 98.4 67 20 130/74 (92) 99 05/13/20 00:00 98.6 75 19 139/70 (93) 97 05/12/20 23:02 Room Air 05/12/20 23:00 98.0 78 18 120/78 98 Room Air 05/12/20 21:00 97.8 81 18 123/70 98 Room Air 05/12/20 18:59 96.6 72 18 115/74 97 Room Air 05/12/20 16:15 96.6 86 18 120/65 99 Room Air 05/12/20 16:01 96.6 58 16 118/67 (84) 100 Room Air Intake and Output 05/12/20 05/13/20 19:00 07:00 Output Total 400 ml 300 ml Balance -400 ml -300 ml Output Urine Total 400 ml 300 ml Laboratory Tests Test 05/12/20 17:20 White Blood Count 8.0 K/UL (4.8-10.8) Red Blood Count 4.53 M/UL (4.70-6.10) L Hemoglobin 13.6 G/DL (14.2-18.0) L Hematocrit 39.8 % (42.0-52.0) L Mean Corpuscular Volume 88 FL (80-99) Mean Corpuscular Hemoglobin 30.0 PG (27.0-31.0) Mean Corpuscular Hemoglobin Concent 34.1 G/DL (32.0-36.0) Red Cell Distribution Width 13.4 % (11.6-14.8) Platelet Count 177 K/UL (150-450) Mean Platelet Volume 7.1 FL (6.5-10.1) Neutrophils (%) (Auto) 75.1 % (45.0-75.0) H Lymphocytes (%) (Auto) 13.1 % (20.0-45.0) L Monocytes (%) (Auto) 8.2 % (1.0-10.0) Eosinophils (%) (Auto) 2.9 % (0.0-3.0) Basophils (%) (Auto) 0.7 % (0.0-2.0) Urine Color Yellow Urine Appearance Cloudy Urine pH 5 (4.5-8.0) Urine Specific [place] 1.025 (1.005-1.035) Urine Protein 2+ (NEGATIVE) H Urine Glucose (UA) Negative (NEGATIVE) Urine Ketones 1+ (NEGATIVE) H Urine Blood 4+ (NEGATIVE) H Urine Nitrite Positive (NEGATIVE) H Urine Bilirubin Negative (NEGATIVE) Urine Urobilinogen Normal MG/DL (0.0-1.0) Urine Leukocyte Esterase 2+ (NEGATIVE) H Urine RBC 10-15 /HPF (0 - 0) H Urine WBC 20-30 /HPF (0 - 0) H Urine Squamous Epithelial Cells Few /LPF (NONE/OCC) Urine Amorphous Sediment Many /LPF (NONE) H Urine Bacteria Many /HPF (NONE) H Sodium Level 144 MMOL/L (136-145) Potassium Level 4.0 MMOL/L (3.5-5.1) Chloride Level 110 MMOL/L (98-107) H Carbon Dioxide Level 26 MMOL/L (21-32) Anion Gap 8 mmol/L (5-15) Blood Urea Nitrogen 30 mg/dL (7-18) H Creatinine 0.8 MG/DL (0.55-1.30) Estimat Glomerular Filtration Rate > 60 mL/min (>60) Glucose Level 100 MG/DL (74-106) Calcium Level 8.8 MG/DL (8.5-10.1) Total Bilirubin 0.4 MG/DL (0.2-1.0) Aspartate Amino Transf (AST/SGOT) 20 U/L (15-37) Alanine Aminotransferase (ALT/SGPT) 18 U/L (12-78) Alkaline Phosphatase 98 U/L (46-116) Total Protein 7.2 G/DL (6.4-8.2) Albumin 3.4 G/DL (3.4-5.0) Globulin 3.8 g/dL Albumin/Globulin Ratio 0.9 (1.0-2.7) L Lipase 137 U/L (73-393) Height (Feet): 5 Height (Inches): 10.00 Weight (Pounds): 146 Medications Current Medications Medications (Trade) Dose Ordered Sig/Jonathan Route PRN Reason Start Time Stop Time Status Last Admin Dose Admin Acetaminophen (Tylenol) 500 mg Q4H PRN ORAL Mild Pain (Pain Scale 1-3) 05/12/20 23:30 06/11/20 23:29 Assessment/Plan Assessment/Plan: (1) Spinal cord injury (2) Paraplegia (3) Neuropathic pain Seen dictated Abdulaziz Jacobo May 13, 2020 08:58
[2020-05-13] MEDS ORDERED: Methocarbamol 500mg tab ORAL PRN (09:00)
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
[2020-05-13 12:39] VITALS: BP 129/65
--- NOTE | 2020-05-13 14:30 | NUR ---
P.T Note: P.T evaluation attempted however pt refused to participate. Pt stated " I know about Physical therapy, I am moving fine and I don't need it ". RN notified. JOSE P.T services.
--- NOTE | 2020-05-13 15:02 | NUR ---
CASE MANAGEMENT:INITIAL REVIEW 64 YR OLD MALE PRESENTED TO ED FROM THE STRE[facility] CC;MALE UROGENITAL PROBLEMS SI;CATHETER ASSOCIATED UTI 96.6 86 18 123/70 97% ON RA BUN 30 UA+ PROTEIN, KETONES, BLOOD, NITRITE, RBC, WBC, AMORPHOUS SEDIMENT, BACTERIA IS;AZTREONAM IV CEFTAZIDIME IV ADMITTED TO MED SURG 05/12/20 @ 2318 MED SURG STATUS
[2020-05-13 16:00] VITALS: BP 105/55
--- NOTE | 2020-05-13 16:10 | Diagnostic Imaging Report ---
Indication: Reason For Exam: PAIN Technique: One view of the chest Comparison: none Findings: Lungs and pleural spaces are clear. Heart size is upper limits normal. There is thoracic scoliotic deformity Impression: No acute process
--- NOTE | 2020-05-13 16:27 | NUR ---
ATOMIC PROCESS ENGINEER NOTE SW attempted to meet w/ pt to discuss homelessness. Pt was sleeping and did not respond to this SW. SW will attempt on the next day.
--- NOTE | 2020-05-13 18:00 | NUR ---
NURSE NOTES: Patient resting,patient remains with his clothes on.No complaint of pain,call light within reach,bed alarm on.
--- NOTE | 2020-05-13 19:30 | NUR ---
NURSE HAND-OFF: Elida NAVARRETE Important Events on Shift:[] Patient Status: [] Diet: Regular mech soft[] Pending Orders: []DR Consult for DR Cash and DR Jeannine Kim Pending Results/Labs:[] Pending MD notification:[] Latest Vital Signs: Temperature 96.6 , Pulse 68 , B/P 105 /55 , Respiratory Rate 18 , O2 SAT 98 , Room Air, O2 Flow Rate . Vital Sign Comment: [] Latest Anton Fall Score: 35 Fall Risk: Medium Risk Safety Measures: Call light Within Reach, Bed Alarm Zone 1, Side Rails Side Rails x2, Bed position Low and Locked. Fall Precautions: y Door Sign y Report given to [].
--- NOTE | 2020-05-13 19:30 | NUR ---
NURSE NOTES: Received report from lupis. patient on bed with his street clothes on, awake and verbally responsive. denies any pain or discomfort. with iv line on the right forearm, saline lock. on room air. no sob. with suprapubic catheter.per lupis, ' patient refused for skin assessment and change of clothes". went to the room with lupis. explained the need to do skin assessment and suprapubic catheter appearance and location. patient refused. per patient, " i don't wanna move around, just look at the bag connected from suprapubic catheter". explained risks and benefits. charge nurse made aware. paraplegic. reiterated to call and ask for assistance. call light and light button within easy reach. bed alarm on. will continue plan of care.
[2020-05-13 20:00] VITALS: BP 105/51
--- NOTE | 2020-05-13 21:45 | History and Physical Report ---
DATE OF ADMISSION: 05/12/2020 HISTORY OF PRESENT ILLNESS: The patient comes in because of flank pain. The patient has paraplegia from years ago. The patient complains of night sweats and chills for about the past year as well as weight loss. 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 The patient also complains of itching sometimes. The patient denies shortness of breath. Denies cough. Denies headache. Denies sore throat. Denies nausea, vomiting, or diarrhea. Denies dizziness. PAST MEDICAL HISTORY: History of exposure to TB, history of decubitus ulcer, history of paraplegia, history of catheter-associated UTI in the past. The patient also admitted for catheter-associated UTI as well. PAST SURGICAL HISTORY: The patient had left arm surgery. MEDICATIONS: None. ALLERGIES: Iodine and shellfish. FAMILY HISTORY: Noncontributory. SOCIAL HISTORY: The patient does have a history of drug abuse. Denies history of smoking. Denies history of alcohol abuse. REVIEW OF SYSTEMS: HEENT: Denies headaches. Does have night sweats, chills, and weight loss for about a year. RESPIRATORY: Denies shortness of breath. Denies cough. CARDIOVASCULAR: Denies chest pain. Denies nausea, vomiting, or diarrhea. EXTREMITIES: Denies pain. CENTRAL NERVOUS SYSTEM: Denies change in speech pattern. PHYSICAL EXAMINATION: VITAL SIGNS: Temperature 98.6, pulse is 74, blood pressure 139/70. HEENT: PERRLA. NECK: Supple. CHEST: Clear to auscultation. CARDIOVASCULAR: Regular rate and rhythm. No murmurs or extra sounds. GASTROINTESTINAL: Soft, nontender, nondistended. No organomegaly. EXTREMITIES: No edema. Dorsalis pedis pulses present. Paraplegia. NEUROLOGIC: Reflexes on both sides. LABORATORY DATA: WBC of 8, hemoglobin of 13.6, and platelets 177. Sodium 144, potassium of 4, BUN of 30, creatinine of 0.8, glucose of 100. ASSESSMENT AND PLAN: Catheter-associated UTI, night sweats, weight loss, history of exposure to TB. So, I have asked Dr. Marin, Dr. Carrasco, Dr. Camron Calderon, and Dr. Gigi Kim to see the patient to help with the above-mentioned abnormalities and abnormal symptoms, and chest x-ray will be ordered to see if the patient has signs or findings of TB on the chest x-ray. Antibiotics per Dr. Gigi Kim. We will get PT/OT evaluation as well. Jeffery Patino M.D. DR: Sanam JOB#: [id number] CC:
[2020-05-14 04:00] VITALS: BP 119/66
--- NOTE | 2020-05-14 06:33 | NUR ---
NURSE HAND-OFF: Important Events on Shift: refused for skin assessment, suprapubic catheter appearance and location and change of clothes; non-compliant Patient Status: stable Diet: regular Pending Orders: Pending Results/Labs: Pending MD notification: Latest Vital Signs: Temperature 98.0 , Pulse 72 , B/P 119 /66 , Respiratory Rate 19 , O2 SAT 98 , Room Air, O2 Flow Rate . Vital Sign Comment: Latest Anton Fall Score: 35 Fall Risk: Medium Risk Safety Measures: Call light Within Reach, Bed Alarm Zone 1, Side Rails Side Rails x2, Bed position Low and Locked. Fall Precautions: Door Sign
--- NOTE | 2020-05-14 07:18 | NUR ---
HAND-OFF: Report given to kadi baugh.
--- NOTE | 2020-05-14 07:39 | NUR ---
NURSE NOTES: patient awake and alert and oriented.Saline lock to the right arm intact.Suprapubic catheter in place with mo color urine noted in drainage bag.breakfast at bedside.Bed alarm on,call light within reach.
[2020-05-14 08:00] VITALS: BP 109/64
--- NOTE | 2020-05-14 08:38 | General Progress Note ---
Subjective Date patient seen: May 14, 2020 Time patient seen: 07:15 - am Allergies: Coded Allergies: IODINE AND IODIDE CONTAINING PRODUC (Unverified Allergy, Unknown, 10/09/19) SHELLFISH DERIVED (Unverified Allergy, Unknown, 10/09/19) Subjective HISTORY OF PRESENT ILLNESS: This is a 64-year-old male who is being seen on the med/surg floor of [facility]. In bed and showing no signs of pain or distress. REVIEW OF SYSTEMS: Denies rash, fever, chills, sweating, dizziness, drowsiness, sore throat, or change in weight. No shortness of breath. Objective Last 24 Hour Vital Signs Date Time Temp Pulse Resp B/P (MAP) Pulse Ox O2 Delivery O2 Flow Rate FiO2 05/14/20 04:00 98.0 72 19 119/66 (83) 98 05/13/20 21:00 Room Air 05/13/20 20:00 98.4 84 19 105/51 (69) 97 05/13/20 16:00 96.6 68 18 105/55 (72) 98 05/13/20 12:39 97.6 78 18 129/65 (86) 98 05/13/20 09:00 Room Air Intake and Output 05/13/20 05/14/20 19:00 07:00 Intake Total 1080 ml 400 ml Output Total 750 ml 600 ml Balance 330 ml -200 ml Intake Oral 1080 ml 400 ml Output Urine Total 750 ml 600 ml # Voids 2 Height (Feet): 5 Height (Inches): 10.00 Weight (Pounds): 146 Objective PHYSICAL EXAMINATION: GENERAL: Alert, awake, and oriented. LUNGS: Decreased breath sounds bilaterally. HEART: S1 and S2 regular. ABDOMEN: Soft and nontender. EXTREMITIES: No cyanosis. No clubbing. NEUROLOGIC: No changes. Assessment/Plan Assessment/Plan: (1) Spinal cord injury (2) Paraplegia (3) Neuropathic pain continue on Neurontin and robaxin d/w Dr. Marin and he concurred. Abdulaziz Jacobo May 14, 2020 08:38
--- NOTE | 2020-05-14 10:32 | NUR ---
NURSE NOTES: industrial relations representative spoke to Gigi Mccray regarding UA and culture result. Dr. Kim will see the patient first prior to ordering med.Patient is aware of plan of care.
--- NOTE | 2020-05-14 11:40 | NUR ---
NURSE NOTES: Patient was seen by Dr. Gigi HUNG and antibiotics was ordered.
[2020-05-14 12:00] VITALS: BP 105/56
--- NOTE | 2020-05-14 12:53 | NUR ---
NURSE NOTES: Patient asked for regular diet instead of chopped diet. Patient has teeth, no hx of dysphagia. Paged Dr. Patino and spoke to Dr. Patino who agreed to change to regular diet.
[2020-05-14] MEDS: Cefepime HCl 1 GM in D5W 55 ML IVPB SCH ×2 (14:20→20:38)
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
--- NOTE | 2020-05-14 14:48 | NUR ---
CASE MANAGEMENT:REVIEW SI;CATH ASSOCIATED UTI. HX OF TB. 98.4 84 19 105/51 97% ON RA NO LABS AVAILABLE IS;CEFEPIME IV Q12 GABAPENTIN PO TID MED SURG STATUS DCP;PATIENT REPORTS HOMELESSNESS PLAN; ID/NEPHROLOGY/PULMO CONSULTS PENDING
--- NOTE | 2020-05-14 15:38 | NUR ---
AS400 PROGRAMMER NOTE SW met w/ pt to discuss homelessness. Pt presents as A&O4x, easily frustrated. Pt was last admitted to [facility] on 10/09/2019-10/15/2019. Pt is on wheelchair and reports he has been independent w/ ADLs and IADLs. Pt is single, has no children. Pt declined to provide an emergency contact. Pt has hx of receiving SSI two years ago. Per pt, he was encouraged by a social media intern at [facility] in [place], [place] to re-apply SSI. However, pt reports he plans to hire a rustic fence builder in [place] to open SSI case. He only considers having his own apartment as his placement at this time. Pt denies substance abuse/mental health issue. Pt declined counseling/tx intervention on substance abuse/referral to mental health clinic. SW attempted to discuss short-term, feasible DC plan, such as applying GR and food stamp until his SSI is reinstated/approved. However, pt declined to receive any resource on GR, food stamp or community resource packet. Pt also declined a placement assistance, reporting that he plans to return to his preferred location where his friend is at. Pt declined to share his whereabouts/preferred location. Pt will dc to preferred location upon DC. PT does not share any concern/needs at this time. SW to F/U as needed.
[2020-05-14 16:00] VITALS: BP 104/57
--- NOTE | 2020-05-14 18:00 | NUR ---
NURSE NOTES: Patient resting,no complaint of pain.Supra pubic catheter remains in place.urine color becoming clearer a light mo color Patient was started on IV antibiotics as ordered. Bed alarm on,call light within reach,.
--- NOTE | 2020-05-14 19:25 | NUR ---
Received report from Candy NAVARRETE. Pt. is in bed , awake, alert and oriented. Breathing even and unlabored. Denies any pain at this time. With suprapubic attached to drainage bag, draining to a clear yellow urine, no sediments. With call light with reach. With bed in it's lowest position, locked and with alarm on. Will continue with plan of care.
--- NOTE | 2020-05-14 19:41 | NUR ---
NURSE HAND-OFF: LISA NAVARRETE Important Events on Shift:[] Patient Status: [stable Diet: Regular[] Pending Orders: [] Pending Results/Labs:[] Pending MD notification:[] Latest Vital Signs: Temperature 97.8 , Pulse 70 , B/P 104 /57 , Respiratory Rate 19 , O2 SAT 98 , Room Air, O2 Flow Rate . Vital Sign Comment: [] Latest Anton Fall Score: 35 Fall Risk: Medium Risk Safety Measures: Call light Within Reach, Bed Alarm Zone 1, Side Rails Side Rails x2, Bed position Low and Locked. Fall Precautions: Door Sign Y Bed alarm Report given to [].
[2020-05-14 20:00] VITALS: BP 111/58
--- NOTE | 2020-05-14 20:23 | General Progress Note ---
Subjective ROS Limited/Unobtainable: Yes Allergies: Coded Allergies: IODINE AND IODIDE CONTAINING PRODUC (Unverified Allergy, Unknown, 10/09/19) SHELLFISH DERIVED (Unverified Allergy, Unknown, 10/09/19) Objective Last 24 Hour Vital Signs Date Time Temp Pulse Resp B/P (MAP) Pulse Ox O2 Delivery O2 Flow Rate FiO2 05/14/20 16:00 97.8 70 19 104/57 (73) 98 05/14/20 12:00 97.0 60 18 105/56 (72) 97 05/14/20 09:00 Room Air 05/14/20 08:00 97.6 61 19 109/64 (79) 97 05/14/20 04:00 98.0 72 19 119/66 (83) 98 05/13/20 21:00 Room Air Intake and Output 05/13/20 05/14/20 19:00 07:00 Intake Total 1080 ml 400 ml Output Total 750 ml 600 ml Balance 330 ml -200 ml Intake Oral 1080 ml 400 ml Output Urine Total 750 ml 600 ml # Voids 2 Height (Feet): 5 Height (Inches): 10.00 Weight (Pounds): 146 Assessment/Plan Problem List: (1) Abdominal pain ICD Codes: R10.9 - Unspecified abdominal pain SNOMED: 46337797 (2) Electrolyte imbalance ICD Codes: E87.8 - Other disorders of electrolyte and fluid balance, not elsewhere classified SNOMED: 512730393 (3) Dehydration ICD Codes: E86.0 - Dehydration SNOMED: 74926829 (4) Severe malnutrition ICD Codes: E43 - Unspecified severe protein-calorie malnutrition SNOMED: 76336690 (5) Catheter-associated urinary tract infection ICD Codes: T83.511A - Infection and inflammatory reaction due to indwelling urethral catheter, initial encounter; N39.0 - Urinary tract infection, site not specified SNOMED: 584685850 Qualifiers: Qualified Codes: T83.510A - Infection and inflammatory reaction due to cystostomy catheter, initial encounter; N39.0 - Urinary tract infection, site not specified Status: progressing Assessment/Plan: afebrile nac uti paraplegia check cxr h/o tb exporsure s/p treatment wt loss Jeffery Patino MD May 14, 2020 20:23
[2020-05-15] VITALS: BP 105/57
[2020-05-15 04:00] VITALS: BP 113/61
--- NOTE | 2020-05-15 04:06 | NUR ---
NURSE NOTES: All meds given. On ivatb of Maxipime. without a/r noted. With good urine output noted from SP cath, clear yellow in color, moderate in amount; no sediments noted. Pt. verbalizes that he felt better. With good oral hydration noted and as verbalized. Slept @ long intervals. Vitals sisngs within stable. Denies any pain at this time. On continued contact isolation for hx of vre rectum,observed at all times.Will continue with plan of care.
--- NOTE | 2020-05-15 07:30 | NUR ---
NURSE NOTES: Handoff received from Al RN. Patient awake and alert, no signs of distress noted, no reports of pain. Right forearm Iv 20g is intact and asymptomatic, saline locked. Suprapubic catheter patent and draining to gravity, attached to leg bag. Wheelchair at bedside. Bed is low and locked, side rails were up x2, call light is within reach.
--- NOTE | 2020-05-15 07:39 | NUR ---
NURSE HAND-OFF: Important Events on Shift:urine, ivatb Patient Status: stable Diet: Pending Orders: Pending Results/Labs: Pending MD notification: Latest Vital Signs: Temperature 97.3 , Pulse 72 , B/P 113 /61 , Respiratory Rate 16 , O2 SAT 96 , Room Air, O2 Flow Rate . Vital Sign Comment: Latest Anton Fall Score: 35 Fall Risk: Medium Risk Safety Measures: Call light Within Reach, Bed Alarm Zone 1, Side Rails Side Rails x2, Bed position Low and Locked. Fall Precautions: Door Sign Report given to Garrett NAVARRETE
[2020-05-15 08:00] VITALS: BP 101/51
--- NOTE | 2020-05-15 08:37 | General Progress Note ---
Subjective Date patient seen: May 15, 2020 Time patient seen: 08:15 - am Allergies: Coded Allergies: IODINE AND IODIDE CONTAINING PRODUC (Unverified Allergy, Unknown, 10/09/19) SHELLFISH DERIVED (Unverified Allergy, Unknown, 10/09/19) Subjective HISTORY OF PRESENT ILLNESS: This is a 64-year-old male who is being seen on the med/surg floor of [facility]. Laying in bed and showing no signs of pain or distress. No new complaints at this time. REVIEW OF SYSTEMS: Denies rash, fever, chills, sweating, dizziness, drowsiness, sore throat, or change in weight. No shortness of breath. Objective Last 24 Hour Vital Signs Date Time Temp Pulse Resp B/P (MAP) Pulse Ox O2 Delivery O2 Flow Rate FiO2 05/15/20 08:00 59 18 101/51 (68) 95 05/15/20 04:00 97.3 72 16 113/61 (78) 96 05/15/20 00:00 97.9 75 18 105/57 (73) 99 05/14/20 21:00 Room Air 05/14/20 20:00 97.8 76 18 111/58 (75) 95 05/14/20 16:00 97.8 70 19 104/57 (73) 98 05/14/20 12:00 97.0 60 18 105/56 (72) 97 05/14/20 09:00 Room Air Intake and Output 05/14/20 05/15/20 19:00 07:00 Intake Total 600 ml 1000 ml Output Total 500 ml 1600 ml Balance 100 ml -600 ml Intake Oral 600 ml 1000 ml Output Urine Total 500 ml 1600 ml Height (Feet): 5 Height (Inches): 10.00 Weight (Pounds): 146 Objective PHYSICAL EXAMINATION: GENERAL: Alert, awake, and oriented. LUNGS: Decreased breath sounds bilaterally. HEART: S1 and S2 regular. ABDOMEN: Soft and nontender. EXTREMITIES: No cyanosis. No clubbing. NEUROLOGIC: No changes. Assessment/Plan Status: progressing Assessment/Plan: (1) Spinal cord injury (2) Paraplegia (3) Neuropathic pain continue on Neurontin and robaxin d/w Dr. Marin and he concurred. Abdulaziz Jacobo May 15, 2020 08:37
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
--- NOTE | 2020-05-15 10:00 | NUR ---
NURSE NOTES: Patient is refusing skin assessment and refusing efforts to turn/reposition.
[2020-05-15] MEDS: Cefepime HCl 1 GM in D5W 55 ML IVPB SCH ×2 (10:51→20:49)
--- NOTE | 2020-05-15 11:17 | General Progress Note ---
Subjective ROS Limited/Unobtainable: Yes Allergies: Coded Allergies: IODINE AND IODIDE CONTAINING PRODUC (Unverified Allergy, Unknown, 10/09/19) SHELLFISH DERIVED (Unverified Allergy, Unknown, 10/09/19) Objective Last 24 Hour Vital Signs Date Time Temp Pulse Resp B/P (MAP) Pulse Ox O2 Delivery O2 Flow Rate FiO2 05/15/20 08:00 59 18 101/51 (68) 95 05/15/20 04:00 97.3 72 16 113/61 (78) 96 05/15/20 00:00 97.9 75 18 105/57 (73) 99 05/14/20 21:00 Room Air 05/14/20 20:00 97.8 76 18 111/58 (75) 95 05/14/20 16:00 97.8 70 19 104/57 (73) 98 05/14/20 12:00 97.0 60 18 105/56 (72) 97 Intake and Output 05/14/20 05/15/20 19:00 07:00 Intake Total 600 ml 1000 ml Output Total 500 ml 1600 ml Balance 100 ml -600 ml Intake Oral 600 ml 1000 ml Output Urine Total 500 ml 1600 ml Height (Feet): 5 Height (Inches): 10.00 Weight (Pounds): 146 Assessment/Plan Problem List: (1) Abdominal pain ICD Codes: R10.9 - Unspecified abdominal pain SNOMED: 04005715 (2) Electrolyte imbalance ICD Codes: E87.8 - Other disorders of electrolyte and fluid balance, not elsewhere classified SNOMED: 963060538 (3) Dehydration ICD Codes: E86.0 - Dehydration SNOMED: 80106821 (4) Severe malnutrition ICD Codes: E43 - Unspecified severe protein-calorie malnutrition SNOMED: 33763817 (5) Catheter-associated urinary tract infection ICD Codes: T83.511A - Infection and inflammatory reaction due to indwelling urethral catheter, initial encounter; N39.0 - Urinary tract infection, site not specified SNOMED: 692030575 Qualifiers: Qualified Codes: T83.510A - Infection and inflammatory reaction due to cystostomy catheter, initial encounter; N39.0 - Urinary tract infection, site not specified Status: progressing Assessment/Plan: uti associated with suprapubic cath.consulted dr potts to possibly change suprapubic cath paraplegia check cxr h/o tb exporsure s/p treatment wt loss Jeffery Patino MD May 15, 2020 11:17
[2020-05-15 12:00] VITALS: BP 99/47
--- NOTE | 2020-05-15 12:24 | Infectious Diseases Prog Note ---
Assessment/Plan Assessment/Plan IMPRESSION: 1. Complicated UTI. 2. Catheter-related urinary tract infection. 3. Paraplegia. 4. History of TB exposure but chest x-ray is negative. RECOMMENDATION: Continue cefepime. We will follow up the cultures. Subjective ROS Limited/Unobtainable: Yes Constitutional: Reports: no symptoms Respiratory: Reports: no symptoms Gastrointestinal/Abdominal: Reports: nausea Genitourinary: Reports: no symptoms Allergies: Coded Allergies: IODINE AND IODIDE CONTAINING PRODUC (Unverified Allergy, Unknown, 10/09/19) SHELLFISH DERIVED (Unverified Allergy, Unknown, 10/09/19) Objective Last 24 Hour Vital Signs Date Time Temp Pulse Resp B/P (MAP) Pulse Ox O2 Delivery O2 Flow Rate FiO2 05/15/20 09:00 97.5 05/15/20 08:00 59 18 101/51 (68) 95 05/15/20 04:00 97.3 72 16 113/61 (78) 96 05/15/20 00:00 97.9 75 18 105/57 (73) 99 05/14/20 21:00 Room Air 05/14/20 20:00 97.8 76 18 111/58 (75) 95 05/14/20 16:00 97.8 70 19 104/57 (73) 98 Height (Feet): 5 Height (Inches): 10.00 Weight (Pounds): 146 General Appearance: no acute distress HEENT: mucous membranes moist Respiratory/Chest: lungs clear Cardiovascular: normal rate Abdomen: soft, non tender Extremities: no edema, other - legs contracture Neurologic/Psychiatric: alert, oriented x 3, responsive, other - paraplegia Microbiology Date/Time Source Procedure Growth Status 05/12/20 19:30 Blood Blood Culture - Preliminary NO GROWTH AFTER 48 HOURS Resulted 05/12/20 19:15 Blood Blood Culture - Preliminary NO GROWTH AFTER 48 HOURS Resulted 05/12/20 17:20 Urine,Clean Catch Urine Culture - Preliminary Gram Negative Anthony Resulted Current Medications Medications (Trade) Dose Ordered Sig/Jonathan Route PRN Reason Start Time Stop Time Status Last Admin Dose Admin Acetaminophen (Tylenol) 500 mg Q4H PRN ORAL Mild Pain (Pain Scale 1-3) 05/12/20 23:30 06/11/20 23:29 Cefepime HCl 1 gm/ Dextrose 55 ml @ 110 mls/hr EVERY 12 HOURS IVPB 05/14/20 13:00 05/21/20 12:59 05/15/20 10:51 Gabapentin (Neurontin) 300 mg THREE TIMES A DAY ORAL 05/13/20 09:00 06/12/20 08:59 Methocarbamol (Robaxin) 500 mg Q8H PRN ORAL muscle spasm 05/13/20 09:00 06/12/20 08:59 Gigi Kim MD May 15, 2020 12:24
--- NOTE | 2020-05-15 15:58 | NUR ---
CASE MANAGEMENT:REVIEW SI;CATH ASSOCIATED UTI. HX OF TB. 97.8 59 18 101/51 95% ON RA NO LABS AVAILABLE IS;CEFEPIME IV Q12 GABAPENTIN PO TID MED SURG STATUS DCP;PATIENT REPORTS HOMELESSNESS
[2020-05-15 16:00] VITALS: BP 107/60
--- NOTE | 2020-05-15 17:10 | NUR ---
INSURANCE CLINICAL/REVIEW FAXED TO [facility] [phone]
--- NOTE | 2020-05-15 19:10 | NUR ---
NURSE NOTES: Received report from ROSALBA Tucker. Pt. is lying in bed, awake, alert and verbally repsonsive. No sob noted. With SP attached to drainage bag, draining to a yellowish colored urine, minimal in amount. With bed in it's lowest position, with alarm on and locked. Will continue with plan of care.
--- NOTE | 2020-05-15 19:20 | NUR ---
HAND-OFF: NURSE HAND-OFF: Important Events on Shift:[changed supra pubic catheter] Patient Status: [stable] Diet: [regular] Pending Orders: Pending Results/Labs: Pending MD notification: Latest Vital Signs: Temperature 97.8 , Pulse 61 , B/P 107 /60 , Respiratory Rate 20 , O2 SAT 97 , Room Air, O2 Flow Rate . Vital Sign Comment: stable Latest Anton Fall Score: 35 Fall Risk: Medium Risk Safety Measures: Call light Within Reach, Bed Alarm Zone 1, Side Rails Side Rails x2, Bed position Low and Locked. Fall Precautions: Door Sign Report given to Jai RN.
[2020-05-15 20:00] VITALS: BP 101/68
--- NOTE | 2020-05-15 20:45 | Consultation ---
DATE OF CONSULTATION: 05/15/2020 CONSULTING PHYSICIAN: Pablo Olsen MD REASON FOR CONSULTATION: Old suprapubic catheter, urinary tract infection. HISTORY OF PRESENT ILLNESS: Patient is a very pleasant, paraplegic gentleman who has chronic suprapubic tube. This tube was changed several months ago and I was called to change the suprapubic catheter. PAST MEDICAL HISTORY: Reviewed in the chart. PAST SURGICAL HISTORY: Reviewed in the chart. MEDICATIONS: Reviewed in the chart. ALLERGIES: Reviewed in the chart. PHYSICAL EXAMINATION: GENERAL: He is a paraplegic gentleman, otherwise in no acute distress. LUNGS: Clear. CARDIOVASCULAR: Regular rate and rhythm. ABDOMEN: Soft, nontender. 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 The suprapubic catheter balloon was deflated and removed. A new 18-[place] catheter was placed into the fistula tract and clear urine was expressed. The balloon was inflated to 10 mL of clear water. ASSESSMENT AND PLAN: Patient has chronic suprapubic catheter. We will follow him with you and he can be discharged as per primary care physician. Pablo Olsen M.D. DR: BRUNA JOB#: [id number] CC:
[2020-05-16] VITALS: BP 103/63
--- NOTE | 2020-05-16 02:31 | NUR ---
Vital signs stable. On continued Ivatb of Cefepime, without a/ r noted. On continued isolation, observed at all times. With SP cath, attached to drainage bag, draining to a clear yellow urine, no sediments, no foul odor noted; no bleeding. Pt. is with good hydration noted. Denies any pain. Slept @ long intervals. Will continue to monitor and will refer if needed.
[2020-05-16 04:00] VITALS: BP 105/63
[2020-05-16 06:02] LABS: BASOPHILS % (AUTO) 0.6 % (0.0-2.0); EOSINOPHILS % (AUTO) 4.9 % (0.0-3.0); HEMATOCRIT 40.8 % (42.0-52.0); HEMOGLOBIN 13.8 G/DL (14.2-18.0); MEAN CORPUSCULAR VOLUME 89 FL (80-99); MONOCYTES % (AUTO) 8.4 % (1.0-10.0); NEUTROPHILS % (AUTO) 65.1 % (45.0-75.0); PLATELET COUNT 172 K/UL (150-450); RED BLOOD COUNT 4.56 M/UL (4.70-6.10); RED CELL DISTRIBUTION WIDTH 13.7 % (11.6-14.8); WHITE BLOOD COUNT 10.4 K/UL (4.8-10.8)
[2020-05-16 06:51] LABS: ANION GAP 7 mmol/L (5-15); BLOOD UREA NITROGEN 20 mg/dL (7-18); CALCIUM 8.3 MG/DL (8.5-10.1); CARBON DIOXIDE 27 MMOL/L (21-32); CHLORIDE 105 MMOL/L (98-107); CREATININE 0.7 MG/DL (0.55-1.30); POTASSIUM 4.7 MMOL/L (3.5-5.1); SODIUM 139 MMOL/L (136-145)
--- NOTE | 2020-05-16 07:26 | NUR ---
NURSE HAND-OFF: Important Events on Shift:urine mngt. Patient Status: stable Diet: Reg. Pending Orders: Pending Results/Labs: Pending MD notification: Latest Vital Signs: Temperature 97.6 , Pulse 78 , B/P 105 /63 , Respiratory Rate 18 , O2 SAT 99 , Room Air, O2 Flow Rate . Vital Sign Comment: Latest Anton Fall Score: 35 Fall Risk: Medium Risk Safety Measures: Call light Within Reach, Bed Alarm Zone 1, Side Rails Side Rails x2, Bed position Low and Locked. Fall Precautions: Door Sign Report given to Abdias NAVARRETE.
--- NOTE | 2020-05-16 07:46 | NUR ---
NURSE NOTES:pt is the bed asleep and arousable. denies any pain and discomfort. stated that he wants to sleep. suprapubic catheter inplacae. drains pale yellow urine with no sediments. no acute distress noted. call light within reach. Addendum: 05/16/20 at 0802 by Abdias Ramirez RN NURSE NOTES:pt sitting up in the bed and eating breakfast. denies any pain and discomfort at this time. no coughing episodes noted. no SOB noted. no acute distress noted. call light within reach.
[2020-05-16 08:00] VITALS: BP 110/64
--- NOTE | 2020-05-16 08:17 | General Progress Note ---
Subjective Date patient seen: May 16, 2020 Time patient seen: 07:10 - am Allergies: Coded Allergies: IODINE AND IODIDE CONTAINING PRODUC (Unverified Allergy, Unknown, 10/09/19) SHELLFISH DERIVED (Unverified Allergy, Unknown, 10/09/19) Subjective HISTORY OF PRESENT ILLNESS: This is a 64-year-old male who is being seen on the med/surg floor of [facility]. Showing no signs of pain or distress. No new complaints at this time. REVIEW OF SYSTEMS: Denies rash, fever, chills, sweating, dizziness, drowsiness, sore throat, or change in weight. No shortness of breath. Objective Last 24 Hour Vital Signs Date Time Temp Pulse Resp B/P (MAP) Pulse Ox O2 Delivery O2 Flow Rate FiO2 05/16/20 04:00 97.6 78 18 105/63 (77) 99 05/16/20 00:00 97.1 70 18 103/63 (76) 99 05/15/20 21:00 Room Air Room Air 05/15/20 20:00 97.9 72 18 101/68 (79) 97 05/15/20 16:00 97.8 61 20 107/60 (76) 97 05/15/20 12:00 97.8 56 20 99/47 (64) 98 05/15/20 09:00 97.5 05/15/20 09:00 Room Air Room Air Intake and Output 05/15/20 05/16/20 18:59 06:59 Intake Total 600 ml 655 ml Output Total 900 ml 550 ml Balance -300 ml 105 ml Intake Oral 600 ml 600 ml IV Total 55 ml Output Urine Total 900 ml 550 ml Laboratory Tests 05/16/20 04:51: White Blood Count 10.4, Red Blood Count 4.56L, Hemoglobin 13.8L, Hematocrit 40.8L, Mean Corpuscular Volume 89, Mean Corpuscular Hemoglobin 30.3, Mean Corpuscular Hemoglobin Concent 33.9, Red Cell Distribution Width 13.7, Platelet Count 172, Mean Platelet Volume 7.0, Neutrophils (%) (Auto) 65.1, Lymphocytes (%) (Auto) 21.0, Monocytes (%) (Auto) 8.4, Eosinophils (%) (Auto) 4.9H, Basophils (%) (Auto) 0.6, Sodium Level 139, Potassium Level 4.7, Chloride Level 105, Carbon Dioxide Level 27, Anion Gap 7, Blood Urea Nitrogen 20H, Creatinine 0.7, Estimat Glomerular Filtration Rate > 60, Glucose Level 87, Calcium Level 8.3L Height (Feet): 5 Height (Inches): 10.00 Weight (Pounds): 146 Objective PHYSICAL EXAMINATION: GENERAL: Alert, awake, and oriented. LUNGS: Decreased breath sounds bilaterally. HEART: S1 and S2 regular. ABDOMEN: Soft and nontender. EXTREMITIES: No cyanosis. No clubbing. NEUROLOGIC: No changes. Assessment/Plan Assessment/Plan: (1) Spinal cord injury (2) Paraplegia (3) Neuropathic pain continue on Neurontin and robaxin d/w Dr. Marin and he concurred. Abdulaziz Jacobo May 16, 2020 08:17
[2020-05-16] MEDS: Cefepime HCl 1 GM in D5W 55 ML IVPB SCH (08:31)
--- NOTE | 2020-05-16 09:31 | Pulmonology Progress Note ---
Subjective ROS Limited/Unobtainable: Yes Interval Events: None new Constitutional: Reports: no symptoms HEENT: Repors: no symptoms Respiratory: Reports: no symptoms Cardiovascular: Reports: no symptoms Gastrointestinal/Abdominal: Reports: no symptoms Genitourinary: Reports: no symptoms Allergies: Coded Allergies: IODINE AND IODIDE CONTAINING PRODUC (Unverified Allergy, Unknown, 10/09/19) SHELLFISH DERIVED (Unverified Allergy, Unknown, 10/09/19) Objective Last 24 Hour Vital Signs Date Time Temp Pulse Resp B/P (MAP) Pulse Ox O2 Delivery O2 Flow Rate FiO2 05/16/20 08:00 98.3 66 18 110/64 (79) 97 05/16/20 04:00 97.6 78 18 105/63 (77) 99 05/16/20 00:00 97.1 70 18 103/63 (76) 99 05/15/20 21:00 Room Air Room Air 05/15/20 20:00 97.9 72 18 101/68 (79) 97 05/15/20 16:00 97.8 61 20 107/60 (76) 97 05/15/20 12:00 97.8 56 20 99/47 (64) 98 Intake and Output 05/15/20 05/16/20 19:00 07:00 Intake Total 600 ml 655 ml Output Total 900 ml 550 ml Balance -300 ml 105 ml Intake Oral 600 ml 600 ml IV Total 55 ml Output Urine Total 900 ml 550 ml General Appearance: no acute distress HEENT: normocephalic Respiratory: chest wall non-tender, lungs clear Cardiovascular: normal peripheral pulses, normal rate Abdomen: normal bowel sounds Laboratory Tests 05/16/20 04:51: White Blood Count 10.4, Red Blood Count 4.56L, Hemoglobin 13.8L, Hematocrit 40.8L, Mean Corpuscular Volume 89, Mean Corpuscular Hemoglobin 30.3, Mean Corpuscular Hemoglobin Concent 33.9, Red Cell Distribution Width 13.7, Platelet Count 172, Mean Platelet Volume 7.0, Neutrophils (%) (Auto) 65.1, Lymphocytes (%) (Auto) 21.0, Monocytes (%) (Auto) 8.4, Eosinophils (%) (Auto) 4.9H, Basophils (%) (Auto) 0.6, Sodium Level 139, Potassium Level 4.7, Chloride Level 105, Carbon Dioxide Level 27, Anion Gap 7, Blood Urea Nitrogen 20H, Creatinine 0.7, Estimat Glomerular Filtration Rate > 60, Glucose Level 87, Calcium Level 8.3L Current Medications Medications (Trade) Dose Ordered Sig/Jonathan Route PRN Reason Start Time Stop Time Status Last Admin Dose Admin Acetaminophen (Tylenol) 500 mg Q4H PRN ORAL Mild Pain (Pain Scale 1-3) 05/12/20 23:30 06/11/20 23:29 Cefepime HCl 1 gm/ Dextrose 55 ml @ 110 mls/hr EVERY 12 HOURS IVPB 05/14/20 13:00 05/21/20 12:59 05/16/20 08:31 Gabapentin (Neurontin) 300 mg THREE TIMES A DAY ORAL 05/13/20 09:00 06/12/20 08:59 Methocarbamol (Robaxin) 500 mg Q8H PRN ORAL muscle spasm 05/13/20 09:00 06/12/20 08:59 Assessment/Plan Assessment/Plan IMPRESSION: 1. Complicated UTI. 2. Catheter-related urinary tract infection. 3. Paraplegia. 4. History of TB exposure but chest x-ray is negative. RECOMMENDATION: Continue cefepime. No suspicion for pulmonary tuberculosis as his CXR is negative and he has no pulmonary symptoms. Ashley Dueñas Omar Syed MD May 16, 2020 09:31
[2020-05-16 12:00] VITALS: BP 124/58
--- NOTE | 2020-05-16 12:44 | NUR ---
CASE MANAGEMENT:REVIEW SI;CATH ASSOCIATED UTI. HX OF TB. 98.3 55 18 124/58 97% ON RA BUN 20 CA 8.3 IS;CEFEPIME IV Q12 GABAPENTIN PO TID MED SURG STATUS DCP;PATIENT REPORTS HOMELESSNESS
--- NOTE | 2020-05-16 15:00 | Infectious Diseases Prog Note ---
Assessment/Plan Assessment/Plan IMPRESSION: 1. Complicated UTI with E. coli 2. Catheter-related urinary tract infection. 3. Paraplegia. 4. History of TB exposure but chest x-ray is negative. RECOMMENDATION: Change cefepime to PO Keflex Can be discharged with PO antibiotic X 5 days Subjective ROS Limited/Unobtainable: No Constitutional: Reports: no symptoms, other - feels better Respiratory: Reports: no symptoms Cardiovascular: Reports: no symptoms Gastrointestinal/Abdominal: Reports: no symptoms Genitourinary: Reports: no symptoms, other - suprapubic catheter was changed yesterday Allergies: Coded Allergies: IODINE AND IODIDE CONTAINING PRODUC (Unverified Allergy, Unknown, 10/09/19) SHELLFISH DERIVED (Unverified Allergy, Unknown, 10/09/19) Objective Last 24 Hour Vital Signs Date Time Temp Pulse Resp B/P (MAP) Pulse Ox O2 Delivery O2 Flow Rate FiO2 05/16/20 12:00 97.8 55 18 124/58 (80) 97 05/16/20 09:00 Room Air Room Air 05/16/20 08:00 98.3 66 18 110/64 (79) 97 05/16/20 04:00 97.6 78 18 105/63 (77) 99 05/16/20 00:00 97.1 70 18 103/63 (76) 99 05/15/20 21:00 Room Air Room Air 05/15/20 20:00 97.9 72 18 101/68 (79) 97 05/15/20 16:00 97.8 61 20 107/60 (76) 97 Height (Feet): 5 Height (Inches): 10.00 Weight (Pounds): 146 General Appearance: no acute distress HEENT: mucous membranes moist Respiratory/Chest: lungs clear Cardiovascular: bradycardia Abdomen: soft, non tender Genitourinary: other - suprapubic catheter Extremities: no edema, other - contracted legs Neurologic/Psychiatric: alert, oriented x 3, responsive Musculoskeletal: atrophy Laboratory Tests Test 05/16/20 04:51 White Blood Count 10.4 K/UL (4.8-10.8) Red Blood Count 4.56 M/UL (4.70-6.10) L Hemoglobin 13.8 G/DL (14.2-18.0) L Hematocrit 40.8 % (42.0-52.0) L Mean Corpuscular Volume 89 FL (80-99) Mean Corpuscular Hemoglobin 30.3 PG (27.0-31.0) Mean Corpuscular Hemoglobin Concent 33.9 G/DL (32.0-36.0) Red Cell Distribution Width 13.7 % (11.6-14.8) Platelet Count 172 K/UL (150-450) Mean Platelet Volume 7.0 FL (6.5-10.1) Neutrophils (%) (Auto) 65.1 % (45.0-75.0) Lymphocytes (%) (Auto) 21.0 % (20.0-45.0) Monocytes (%) (Auto) 8.4 % (1.0-10.0) Eosinophils (%) (Auto) 4.9 % (0.0-3.0) H Basophils (%) (Auto) 0.6 % (0.0-2.0) Sodium Level 139 MMOL/L (136-145) Potassium Level 4.7 MMOL/L (3.5-5.1) Chloride Level 105 MMOL/L (98-107) Carbon Dioxide Level 27 MMOL/L (21-32) Anion Gap 7 mmol/L (5-15) Blood Urea Nitrogen 20 mg/dL (7-18) H Creatinine 0.7 MG/DL (0.55-1.30) Estimat Glomerular Filtration Rate > 60 mL/min (>60) Glucose Level 87 MG/DL (74-106) Calcium Level 8.3 MG/DL (8.5-10.1) L Current Medications Medications (Trade) Dose Ordered Sig/Jonathan Route PRN Reason Start Time Stop Time Status Last Admin Dose Admin Acetaminophen (Tylenol) 500 mg Q4H PRN ORAL Mild Pain (Pain Scale 1-3) 05/12/20 23:30 06/11/20 23:29 Cefepime HCl 1 gm/ Dextrose 55 ml @ 110 mls/hr EVERY 12 HOURS IVPB 05/14/20 13:00 05/21/20 12:59 05/16/20 08:31 Gabapentin (Neurontin) 300 mg THREE TIMES A DAY ORAL 05/13/20 09:00 12 08:59 Methocarbamol (Robaxin) 500 mg Q8H PRN ORAL muscle spasm 05/13/20 09:00 06/12/20 08:59 Gigi Kim MD May 16, 2020 15:00
[2020-05-16 16:00] VITALS: BP 94/55
--- NOTE | 2020-05-16 19:32 | NUR ---
HAND-OFF: Report given to
--- NOTE | 2020-05-16 19:39 | General Progress Note ---
Subjective ROS Limited/Unobtainable: Yes Allergies: Coded Allergies: IODINE AND IODIDE CONTAINING PRODUC (Unverified Allergy, Unknown, 10/09/19) SHELLFISH DERIVED (Unverified Allergy, Unknown, 10/09/19) Objective Last 24 Hour Vital Signs Date Time Temp Pulse Resp B/P (MAP) Pulse Ox O2 Delivery O2 Flow Rate FiO2 05/16/20 16:00 97.3 66 18 94/55 (68) 97 05/16/20 12:00 97.8 55 18 124/58 (80) 97 05/16/20 09:00 Room Air Room Air 05/16/20 08:00 98.3 66 18 110/64 (79) 97 05/16/20 04:00 97.6 78 18 105/63 (77) 99 05/16/20 00:00 97.1 70 18 103/63 (76) 99 05/15/20 21:00 Room Air Room Air 05/15/20 20:00 97.9 72 18 101/68 (79) 97 Intake and Output 05/15/20 05/16/20 19:00 07:00 Intake Total 600 ml 655 ml Output Total 900 ml 550 ml Balance -300 ml 105 ml Intake Oral 600 ml 600 ml IV Total 55 ml Output Urine Total 900 ml 550 ml Laboratory Tests 05/16/20 04:51: White Blood Count 10.4, Red Blood Count 4.56L, Hemoglobin 13.8L, Hematocrit 40.8L, Mean Corpuscular Volume 89, Mean Corpuscular Hemoglobin 30.3, Mean Corpuscular Hemoglobin Concent 33.9, Red Cell Distribution Width 13.7, Platelet Count 172, Mean Platelet Volume 7.0, Neutrophils (%) (Auto) 65.1, Lymphocytes (%) (Auto) 21.0, Monocytes (%) (Auto) 8.4, Eosinophils (%) (Auto) 4.9H, Basophils (%) (Auto) 0.6, Sodium Level 139, Potassium Level 4.7, Chloride Level 105, Carbon Dioxide Level 27, Anion Gap 7, Blood Urea Nitrogen 20H, Creatinine 0.7, Estimat Glomerular Filtration Rate > 60, Glucose Level 87, Calcium Level 8.3L Height (Feet): 5 Height (Inches): 10.00 Weight (Pounds): 146 Assessment/Plan Problem List: (1) Abdominal pain ICD Codes: R10.9 - Unspecified abdominal pain SNOMED: 18046889 (2) Electrolyte imbalance ICD Codes: E87.8 - Other disorders of electrolyte and fluid balance, not elsew here classified SNOMED: 425446439 (3) Dehydration ICD Codes: E86.0 - Dehydration SNOMED: 80109430 (4) Severe malnutrition ICD Codes: E43 - Unspecified severe protein-calorie malnutrition SNOMED: 16369809 (5) Catheter-associated urinary tract infection ICD Codes: T83.511A - Infection and inflammatory reaction due to indwelling urethral catheter, initial encounter; N39.0 - Urinary tract infection, site not specified SNOMED: 509506323 Qualifiers: Qualified Codes: T83.510A - Infection and inflammatory reaction due to cystostomy catheter, initial encounter; N39.0 - Urinary tract infection, site not specified Status: progressing Assessment/Plan: uti associated with suprapubic cath dr potts exchanged suprapubic cath no fever paraplegia h/o tb exporsure s/p treatment no sob no cough Jeffery Patino MD May 16, 2020 19:39
[2020-05-16 20:00] VITALS: BP 104/59
--- NOTE | 2020-05-16 20:00 | NUR ---
NURSE NOTES: RECEIVED PATIENT LYING IN BED, AWAKE, ALERT/ORIENTED X4, VERBALLY RESPONSIVE, NO COMPLAINTS OF PAIN/DISCOMFORT. IV INTACT TO RIGHT FOREARM/GAUGE 20, NO REDNESS/SWELLING NOTED TO SITE. NO SIGNS AND SYMPTOMS OF ACUTE CARDIO RESPIRATORY DISTRESS/SHORTNESS OF BREATH, DENIES CHEST PAIN. PARAPLEGIA, WHEELCHAIR AT BEDSIDE. DENIES GI DISCOMFORT, NO N/V/D. SUPRAPUBIC CATHETER INTACT/PATENT, DRAINING URINE VIA GRAVITY/CHANGED 05/15/20, BRUNEIAN #[id number]. IV ANTIBIOTIC DC'D, PO KEFLEX X 5 DAYS, PATIENT MADE AWARE, VERBALIZED UNDERSTANDING. SIDE RAILS UP X2 FOR MOBILITY, BED IN LOWEST POSITION FOR SAFETY, ENCOURAGED PATIENT TO UTILIZE CALL LIGHT FOR ASSISTANCE. CONTINUE WITH CURRENT PLAN OF CARE. NAD.
[2020-05-16] MEDS: Cephalexin 500mg cap ORAL SCH (21:11)
[2020-05-17] VITALS: BP 95/62
[2020-05-17] MEDS ORDERED: Cephalexin 500mg cap ORAL SCH
[2020-05-17 04:00] VITALS: BP 109/66
[2020-05-17] MEDS: Cephalexin 500mg cap ORAL SCH ×2 (06:24→14:00)
--- NOTE | 2020-05-17 07:35 | NUR ---
NURSE HAND-OFF: Important Events on Shift:[UNEVENTFUL NIGHT, TOLERATING PO ANTIBIOTICS] Patient Status: [STABLE, AFEBRILE] Diet: [REGULAR] Pending Orders: [N/A] Pending Results/Labs:[N/A] Pending MD notification:[N/A] Latest Vital Signs: Temperature 97.1 , Pulse 59 , B/P 109 /66 , Respiratory Rate 18 , O2 SAT 99 , Room Air, O2 Flow Rate . Vital Sign Comment: [STABLE, AFEBRILE] Latest Anton Fall Score: 35 Fall Risk: Medium Risk Safety Measures: Call light Within Reach, Bed Alarm Zone 1, Side Rails Side Rails x2, Bed position Low and Locked. Fall Precautions: Door Sign Report given to [ROSALBA CRENSHAW].
[2020-05-17 08:00] VITALS: BP 106/63
--- NOTE | 2020-05-17 08:00 | NUR ---
NURSE NOTES: Patient awake and alert and oriented,respirations unlabored.Noted supra pubic catheter in place with mo color urine noted.Patient eating breakfast,Bed alarm on,call light within reach.
--- NOTE | 2020-05-17 10:25 | NUR ---
CHARGE NURSE NOTE: During the morning rounds I had a long conversation with patient. He wants to be discharged, does not want to disclose his discharge location (homeless). notified, but he will not discharge him today. Pt was informed, considering leaving AMA.
--- NOTE | 2020-05-17 11:56 | Pulmonology Progress Note ---
Subjective ROS Limited/Unobtainable: Yes Interval Events: None new Constitutional: Reports: no symptoms, other - feels better HEENT: Repors: no symptoms Respiratory: Reports: no symptoms Cardiovascular: Reports: no symptoms Gastrointestinal/Abdominal: Reports: no symptoms Genitourinary: Reports: no symptoms Allergies: Coded Allergies: IODINE AND IODIDE CONTAINING PRODUC (Unverified Allergy, Unknown, 10/09/19) SHELLFISH DERIVED (Unverified Allergy, Unknown, 10/09/19) Objective Last 24 Hour Vital Signs Date Time Temp Pulse Resp B/P (MAP) Pulse Ox O2 Delivery O2 Flow Rate FiO2 05/17/20 09:07 Room Air Room Air 05/17/20 08:00 97.1 63 17 106/63 (77) 99 05/17/20 04:00 97.1 59 18 109/66 (80) 99 05/17/20 00:00 98.7 75 18 95/62 (73) 96 05/16/20 21:00 Room Air Room Air 05/16/20 20:00 97.5 68 18 104/59 (74) 96 05/16/20 16:00 97.3 66 18 94/55 (68) 97 05/16/20 12:00 97.8 55 18 124/58 (80) 97 Intake and Output 05/16/20 05/17/20 19:00 07:00 Intake Total 840 ml 960 ml Output Total 600 ml 1100 ml Balance 240 ml -140 ml Intake Oral 840 ml 960 ml Output Urine Total 600 ml 1100 ml General Appearance: no acute distress HEENT: normocephalic Respiratory: chest wall non-tender, lungs clear Cardiovascular: normal peripheral pulses, normal rate Abdomen: normal bowel sounds Current Medications Medications (Trade) Dose Ordered Sig/Jonathan Route PRN Reason Start Time Stop Time Status Last Admin Dose Admin Acetaminophen (Tylenol) 500 mg Q4H PRN ORAL Mild Pain (Pain Scale 1-3) 05/12/20 23:30 06/11/20 23:29 Cephalexin (Keflex) 500 mg EVERY 8 HOURS ORAL 05/16/20 22:00 05/23/20 21:59 05/17/20 06:24 Gabapentin (Neurontin) 300 mg THREE TIMES A DAY ORAL 05/13/20 09:00 06/12/20 08:59 Methocarbamol (Robaxin) 500 mg Q8H PRN ORAL muscle spasm 05/13/20 09:00 06/12/20 08:59 Assessment/Plan Assessment/Plan IMPRESSION: 1. Complicated UTI. 2. Catheter-related urinary tract infection. 3. Paraplegia. 4. History of TB exposure but chest x-ray is negative. RECOMMENDATION: Continue cefepime. No suspicion for pulmonary tuberculosis as his CXR is negative and he has no pulmonary symptoms. Camron Calderon M.D. Camron Calderon MD May 17, 2020 11:56
[2020-05-17 12:00] VITALS: BP 113/52
--- NOTE | 2020-05-17 12:36 | Infectious Diseases Prog Note ---
Assessment/Plan Assessment/Plan IMPRESSION: 1. Complicated UTI with E. coli 2. Catheter-related urinary tract infection. 3. Paraplegia. 4. History of TB exposure but chest x-ray is negative. RECOMMENDATION: Can be discharged with PO antibiotic X 5 days Subjective ROS Limited/Unobtainable: No Respiratory: Reports: no symptoms Gastrointestinal/Abdominal: Reports: no symptoms Genitourinary: Reports: no symptoms Allergies: Coded Allergies: IODINE AND IODIDE CONTAINING PRODUC (Unverified Allergy, Unknown, 10/09/19) SHELLFISH DERIVED (Unverified Allergy, Unknown, 10/09/19) Objective Last 24 Hour Vital Signs Date Time Temp Pulse Resp B/P (MAP) Pulse Ox O2 Delivery O2 Flow Rate FiO2 05/17/20 09:07 Room Air Room Air 05/17/20 08:00 97.1 63 17 106/63 (77) 99 05/17/20 04:00 97.1 59 18 109/66 (80) 99 05/17/20 00:00 98.7 75 18 95/62 (73) 96 05/16/20 21:00 Room Air Room Air 05/16/20 20:00 97.5 68 18 104/59 (74) 96 05/16/20 16:00 97.3 66 18 94/55 (68) 97 Height (Feet): 5 Height (Inches): 10.00 Weight (Pounds): 146 General Appearance: no acute distress HEENT: mucous membranes moist Respiratory/Chest: lungs clear Cardiovascular: normal rate Abdomen: soft, non tender Genitourinary: other - suprapubic catheter Extremities: no edema, other - contracted legs Neurologic/Psychiatric: alert, oriented x 3, responsive Current Medications Medications (Trade) Dose Ordered Sig/Jonathan Route PRN Reason Start Time Stop Time Status Last Admin Dose Admin Acetaminophen (Tylenol) 500 mg Q4H PRN ORAL Mild Pain (Pain Scale 1-3) 05/12/20 23:30 06/11/20 23:29 Cephalexin (Keflex) 500 mg EVERY 8 HOURS ORAL 05/16/20 22:00 05/23/20 21:59 05/17/20 06:24 Gabapentin (Neurontin) 300 mg THREE TIMES A DAY ORAL 05/13/20 09:00 06/12/20 08:59 Methocarbamol (Robaxin) 500 mg Q8H PRN ORAL muscle spasm 05/13/20 09:00 06/12/20 08:59 Gigi Kim MD May 17, 2020 12:36
--- NOTE | 2020-05-17 13:09 | NUR ---
CHARGE NURSE NOTE: Pt is homeless, paraplegic. refused to go to the long term or SNF. aware. No ID. Pt has a keflex prescription. Our pharmacy will be able to provide medication supply for 3 days (9pills).
[2020-05-17] MEDS ORDERED: CEPHALEXIN500 MG ORAL (15:49)
--- NOTE | 2020-05-17 16:09 | NUR ---
NURSE NOTES: Patient discharge,patient state he has a place to stay,would not give address but state he can find his friend that he stays with Patient is alert and oriented x4.IV removed,patient provided leg bag patient has antibiotic that was filled here at inpatient pharmacy Patient has his personal belongings.patient state he will take the bus.patient state he has money Patient has his own wheel chair.Patient was provided with address of group home if needed.Patient accompany down stairs.ID hospital band removed.
[2020-05-17] MEDS ORDERED: NITROFURANTOIN100 M2 ORAL (22:10)
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
== END 2020-05-17 15:00 | disposition home or self-care (01) | DRG 466 ==
LOC: EMR 17:00 → OBSVTOIN 19:50 → 4E 19:50 → EDBEDREQ 21:45
DX: T83.510A Infection and inflammatory reaction due to cystostomy catheter, initial encounter (principal); Y84.6 Urinary catheterization as the cause of abnormal reaction of the patient, or of later complication, without mention of misadventure at the time of the procedure; E43 Unspecified severe protein-calorie malnutrition; G82.20 Paraplegia, unspecified; N39.0 Urinary tract infection, site not specified; T14.8XXS Other injury of unspecified body region, sequela; Z88.8 Allergy status to other drugs, medicaments and biological substances; Z20.1 Contact with and (suspected) exposure to tuberculosis; V89.2XXS Person injured in unspecified motor-vehicle accident, traffic, sequela; B96.20 Unspecified Escherichia coli [E. coli] as the cause of diseases classified elsewhere; G62.9 Polyneuropathy, unspecified; E87.8 Other disorders of electrolyte and fluid balance, not elsewhere classified; E86.0 Dehydration; Z68.21 Body mass index [BMI] 21.0-21.9, adult
CPT/HCPCS: 36415; 71045; 80048; 80053; 81003; 83690; 85025; 87040; 87086; 87181; 96365; 99285

== ENCOUNTER 2020-05-17 19:11 | Emergency (ER) | payer OTHER ==
[~2020-05-17] VITALS: Ht 177.8 cm; Wt 66.2 kg
[~2020-05-17 19:11] MED LIST: CEPHALEXIN500 MG ORAL
[2020-05-17 19:15] VITALS: BP 90/49
--- NOTE | 2020-05-17 19:15 | NUR ---
ED Nurse Note: pt came into ED via w/c c/o abdominal pain 02/10 radiating to back. Pt states he was admitted to [facility] this week and was DC with oral ABX today in the AM per pt request, but pt started feeling sweaty and pain worsened. Pt is AAOx4, breathing even and unlabored, Vital signs stable as documented.
--- NOTE | 2020-05-17 19:20 | NUR ---
ED Nurse Note: urine collected and sent to lab
--- NOTE | 2020-05-17 19:22 | NUR ---
ED Nurse Note: EDMD and charge nurse aware unable to obtain IV access.
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
--- NOTE | 2020-05-17 20:27 | NUR ---
ED Nurse Note: pt went down to CT via kathleen hay in stable condition.
[2020-05-17 20:31] LABS: APPEARANCE,URINE SLIGHTLY CLOUDY; BILIRUBIN, URINE NEGATIVE (NEGATIVE); GLUCOSE, URINE (UA) NEGATIVE (NEGATIVE); KETONES,URINE NEGATIVE (NEGATIVE); LEUKOCYTE ESTERASE ,URINE 3+ (NEGATIVE); NITRITE,URINE NEGATIVE (NEGATIVE); PH,URINE 6 (4.5-8.0); PROTEIN,URINE 3+ (NEGATIVE); UROBILINOGEN,URINE NORMAL MG/DL (0.0-1.0)
[2020-05-17 20:37] LABS: COLOR,URINE YELLOW
--- NOTE | 2020-05-17 21:07 | Diagnostic Imaging Report ---
EXAM: CT Abdomen and Pelvis Without Intravenous Contrast CLINICAL HISTORY: PAIN TECHNIQUE: Axial computed tomography images of the abdomen and pelvis without intravenous contrast. CTDI is 5.60 mGy and DLP is 405.80 mGy-cm. One or more of the following dose reduction techniques were used: automated exposure control, adjustment of the mA and/or kV according to patient size, use of iterative reconstruction technique. COMPARISON: CT abdomen and pelvis dated 10/09/2019. FINDINGS: Lung bases: Scarring within the left lung base. ABDOMEN: Liver: Simple right hepatic cyst. Gallbladder and bile ducts: Unremarkable. No calcified stones. No ductal dilation. Pancreas: Unremarkable. No ductal dilation. Spleen: Unremarkable. No splenomegaly. Adrenals: Unremarkable. No mass. Kidneys and ureters: Mild bilateral perinephric fat stranding, likely sequela of chronic medical renal disease. No obstructing stones. No hydronephrosis. Stomach and bowel: Unremarkable. No obstruction. No mucosal thickening. PELVIS: Appendix: No findings to suggest acute appendicitis. Bladder: Suprapubic catheter within a decompressed urinary bladder. No stones. Reproductive: Unremarkable as visualized. ABDOMEN and PELVIS: Intraperitoneal space: Unremarkable. No free air. No significant fluid collection. Bones/joints: Moderate bilateral femoral acetabular joint space narrowing. No acute fracture. No dislocation. Soft tissues: Calcifications along the left superficial soft tissues adjacent to the greater trochanter. Additional superficial soft tissue calcification posterior to the right iliac bone. May be sequela of prior trauma or injection granuloma. Mild subcutaneous edema within the proximal right buttock and upper thigh. Vasculature: Unremarkable. No abdominal aortic aneurysm. Lymph nodes: Unremarkable. No enlarged lymph nodes. IMPRESSION: 1. Mild superficial soft tissue edema within the right buttock and proximal thigh. May represent sequela of decubitus positioning versus sialitis. Recommend clinical correlation. 2. Suprapubic catheter within the urinary bladder. 3. Additional chronic findings as above. EXAM: CT Chest Without Intravenous Contrast CLINICAL HISTORY: PAIN TECHNIQUE: Axial computed tomography images of the chest without intravenous contrast. CTDI is 5.60 mGy and DLP is 405.80 mGy-cm. One or more of the following dose reduction techniques were used: automated exposure control, adjustment of the mA and/or kV according to patient size, use of iterative reconstruction technique. COMPARISON: Chest radiograph dated 05/13/2020. FINDINGS: Lungs: Scarring within the left lung base. Pleural space: Unremarkable. No pneumothorax. No significant effusion. Heart: Unremarkable. No cardiomegaly. No significant pericardial effusion. Bones/joints: Prominent apex right scoliosis of the thoracolumbar spine. Mild degenerative changes of the left acromial clicker joint. No acute fracture. No dislocation. Soft tissues: Unremarkable. Vasculature: Mild atherosclerotic vascular disease. No thoracic aortic aneurysm. Lymph nodes: Unremarkable. No enlarged lymph nodes. Upper abdomen: Left posterior diaphragmatic hernia with a small amount of contents. IMPRESSION: No acute abnormality of the thorax.
--- NOTE | 2020-05-17 21:17 | NUR ---
ED Nurse Note: Per EDMD no IV access, only collect blood. Blood collected and sent to lab.
[2020-05-17 21:31] LABS: BASOPHILS % (AUTO) 0.9 % (0.0-2.0); EOSINOPHILS % (AUTO) 4.2 % (0.0-3.0); HEMATOCRIT 44.5 % (42.0-52.0); LYMPHOCYTES % (AUTO) 19.3 % (20.0-45.0); MEAN CORPUSCULAR VOLUME 88 FL (80-99); MONOCYTES % (AUTO) 7.2 % (1.0-10.0); NEUTROPHILS % (AUTO) 68.4 % (45.0-75.0); PLATELET COUNT 220 K/UL (150-450); RED BLOOD COUNT 5.07 M/UL (4.70-6.10); RED CELL DISTRIBUTION WIDTH 13.6 % (11.6-14.8); WHITE BLOOD COUNT 12.3 K/UL (4.8-10.8)
[2020-05-17 21:52] LABS: ANION GAP 6 mmol/L (5-15); BLOOD UREA NITROGEN 22 mg/dL (7-18); CALCIUM 8.7 MG/DL (8.5-10.1); CARBON DIOXIDE 29 MMOL/L (21-32); CHLORIDE 104 MMOL/L (98-107); CREATININE 0.9 MG/DL (0.55-1.30); POTASSIUM 4.3 MMOL/L (3.5-5.1); SODIUM 139 MMOL/L (136-145)
[2020-05-17 21:56] LABS: ALANINE AMINOTRANSFERASE 17 U/L (12-78); ALBUMIN 3.7 G/DL (3.4-5.0); ALKALINE PHOSPHATASE 114 U/L (46-116); ASPARTATE AMINO TRANSFERASE 18 U/L (15-37); BILIRUBIN,TOTAL 0.5 MG/DL (0.2-1.0)
[2020-05-17] MEDS ORDERED: NITROFURANTOIN100 M2 ORAL (22:10)
[2020-05-17 23:02] VITALS: BP 127/71
--- NOTE | 2020-05-17 23:02 | NUR ---
ER DISCHARGE NOTE: Patient is cleared to be discharged per ERMD, pt is aox4, on room air, with stable vital signs. pt was given homeless resource packet, weather appropriate clothes, and meals upon dc. pt was given dc and paper prescription instructions to f/u with PMD and urologist, pt was able to verbalize understanding, pt id band removed. pt is able to ambulate with steady gait. pt took all belongings.
--- NOTE | 2020-05-18 15:44 | Cardiology Report ---
APPROVED REPORT EKG Measurement Heart [id number] <Conclusion> Normal sinus rhythm Cannot rule out Anterior infarct, age undetermined Abnormal ECG
== END 2020-05-17 23:02 | disposition home or self-care (01) ==
LOC: EMR 19:25
DX: T83.518A Infection and inflammatory reaction due to other urinary catheter, initial encounter (principal); R10.31 Right lower quadrant pain; G82.20 Paraplegia, unspecified; Z91.013 Allergy to seafood; Z88.8 Allergy status to other drugs, medicaments and biological substances
CPT/HCPCS: 36415; 71250; 74176; 80053; 80307; 81003; 83605; 83690; 83735; 84484; 85025; 87086; 93005; G0480; Z7502; 99284